=== PATIENT | female | born 1965 | race Caucasian/White ===

== ENCOUNTER 2020-10-06 22:26 | Emergency (ER) | payer OTHER, MEDICAID, SELFPAY ==
[2020-10-06] VITALS (14 sets, daily range): BP systolic 92–177; BP diastolic 69–124; PULSE 71–181; RESP 1–31; O2SAT 91–100
[2020-10-06] MEDS: Naloxone 0.4 MG/ML VIAL 2 MG IVP (22:26)
[2020-10-06] MEDS: EPINEPHrine 1 MG/10 ML SYR IVP (22:27)
--- NOTE | 2020-10-06 22:30 | RT.EKG_ITS ---
APPROVED REPORT Exam: Resting ECG Reason for Exam: RESP FAILURE Patient Location: E HR:164 bpm ECG Measurements Heart Rate 164 AXIS MD [id number] P [id number] QRSd 80 QRS 79 QT 302 T [id number] QTc 501 Conclusion Atrial fibrillation with rapid V-rate...A-rate 277 Repolarization abnormality, prob rate related...ST dep, T neg, tachycardia No STEMI I have reviewed and interpreted ECG and agree with software generated interpretation.
--- NOTE | 2020-10-06 22:49 | DI.CT_ITS ---
Exam(s) CT CHEST PE ABD PELVIS W EXAM: CT CHEST PE ABD PELVIS W CLINICAL HISTORY: respiratory arrest. TECHNIQUE: Imaging Protocol: Axial CT angiography was performed with multi-slice acquisition and mu lti-planar and/or 3D reconstructions. CONTRAST MATERIAL: Intravenous: Omnipaque 350 Contrast volume:100 mL COMPARISON: No exams were available for comparison FINDINGS: The examination is limited due to patient motion artifact. CHEST: Pulmonary Arteries: No evidence of filling defect to suggest pulmonary emboli. Tracheobronchial tree: Patent where visualized. Mediastinum and Kiara: No dominant adenopathy or fluid collection. Pulmonary parenchyma: There are bilateral lower lobe consolidations. Small infiltrates are also seen in the posterior aspects of both upper lobes, right greater than left. No architectural distortion. Pleura: There is a small left pleural effusion and a small to moderate size right pleural effusion. No pneumothorax. Heart: Mild cardiomegaly. Mild coronary artery calcification. Aorta: Thoracic aorta non-dilated. Atherosclerosis. Bones: Degenerative changes. Tubes, Catheters, and Lines: The tip of the endotracheal tube is in the right mainstem bronchus. The catheter should be retracted by at least 3 cm. The orogastric tube passes into the stomach. ABDOMEN: Liver: Normal density. No measurable mass. Portal, Superior Mesenteric, and Splenic Veins: Unremarkable. Gallbladder and Biliary Tract: Status post cholecystectomy. The mild biliary ductal dilatation likel y reflects a prior cholecystectomy. Pancreas: Normal density, no abnormal calcifications or inflammatory process. Spleen: Normal. Adrenals: There are small bilateral adrenal nodules. The largest is on the right and measures 1.4 x 0.9 cm. Kidneys: Normal size, contour and axis. No radiodense stones or obstructive uropathy. No masses seen. Abdominal Aorta: Abdominal portion non-dilated. Mild atherosclerosis. Bowel: No obstruction or bowel wall thickening. Appendix is unremarkable. The tip of the nasogastric tube is seen within the stomach. Peritoneal Cavity: No ascites, collection or mesenteric inflammatory response. Lymph Nodes: Within normal limits. Bones: Within normal limits for the patient's age. Soft Tissues: Unremarkable. PELVIS: Bladder: The urinary bladder is nondistended. There is a Sam catheter in place. Reproductive Organs: Unremarkable as visualized. Lymph Nodes: Within normal limits. Bones: Within normal limits. IMPRESSION: 1. The tip of the endotracheal tube is in the right mainstem bronchus and should be retracted by at l east 3 cm. 2. No evidence of a pulmonary embolus. 3. Bilateral pulmonary infiltrates and ground-glass opacities. Pneumonia should be considered. 4. Bilateral pleural effusions. 5. Mild cardiomegaly. 6. No acute abdominal or pelvic process. 7. Small bilateral adrenal nodules measuring up to 1.4 cm. They are indeterminate. Consider 12 diana h follow-up adrenal CT. Incidental Findings RADIATION DOSE DELIVERED: 1,450.84mGy.cm Total DLP 1,450.84mGy.cm Total DLP DATA REPOSITORY: All CT scans at this facility are submitted to the National Radiology Data Registry (NRDR) Dose Index Registry (DIR) with the [employer] (ACR). RADIATION OPTIMIZATION: All CT scans at this facility use at least one of these dose optimization te chniques: automated exposure control; mA and/or kV adjustment per patient size (includes targeted exa ms where dose is matched to clinical indication); or iterative reconstruction.
[2020-10-06] MEDS: Midazolam 5 MG/5 ML VIAL (22:57)
--- NOTE | 2020-10-06 22:57 | W.ED.GENAD ---
Discharge Plan Disposition Patient Disposition: [facility] Condition: Stable Discharge Details Clinical Impression: Respiratory arrest before cardiac arrest, Unresponsive Primary Care Provider: None,None ED Provider: Skyler Vieyra [place] Meds and New Rx's Prescriptions: No Action Unable to Obtain RF: 0 Medical Decision Making Patient arrives unresponsive with agonal respirations and no pulse. CPR started. Assisted ventilation with BVM. IV established. Initial resuscitation done without any history. 2 mg of Narcan given without results. 1 mg epinephrine given. Patient intubated by me on first attempt with use of CMAC. 7.5 ET tube placed without difficulty. Clear secretions noted in the tube. Breath sounds heard bilaterally. End-tidal CO2 present. ET tube secured. Second IV established. After intubation and 1 dose of epi pulse returned. Noted to be in A. fib with rates as high as 170. Good strong pulse and good blood pressure. Sam placed by nursing staff. OG placed by nursing staff. Once patient initially resuscitated I was able to speak to the sister. She reports that she really does not know a lot of information about her sister. She just moved up here to [place] a couple of months ago. Sister has never seen her take any medication. She did not get the [employer] vaccine 1 week ago. She has not been ill. She did not complain of pain. On return to the room patient remains unresponsive but she is overbreathing the vent. Versed is given for sedation. CTA of chest followed with CT abdomen pelvis ordered. EKG shows A. fib with no evidence of STEMI. Laboratory studies pending. No urine output by Sam at this point. Patient returned from CT and continues to be in rapid A. fib. Blood pressure continues to be elevated. She has more sedate and breathing less over the vent on the Versed. Will bolus with Cardizem and start Cardizem drip for rate control of her A. fib. CT and labs still pending at this point. 01:15 - Patient remains unresponsive on return from CT. She is on low-dose Versed drip. She has remained in sinus rhythm with stable blood pressure. We have placed ice in her axilla and groin to start cooling. Laboratory studies are not helpful showing an etiology of her respiratory arrest. White count is elevated but is likely due to to stress reaction. Troponin is negative. Electrolytes are normal. Liver function normal. She does have acidosis and renal insufficiency. BNP elevated but no baseline to compare to. CT scan shows no pulmonary embolus or dissection. She does have evidence of bibasilar consolidation consistent with aspiration as well as bilateral interstitial findings and pleural effusions that could be related to CHF. ET tube was at the right mainstem and has been pulled back. Abdomen pelvis shows adrenal nodules bilaterally but no acute pathology. Case discussed with [facility] ICU team. A head CT, blood cultures, Covid swab will be obtained prior to transfer. Patient remains unresponsive on a ventilator but hemodynamically stable. I have updated the sister and she is aware of the transfer to [facility]. Hopefully able to fly her down and we are awaiting callback from [facility]. HPI General Mode of arrival: wheelchair. Date/Time Provider Initiated Documentation: 10/06/20 22:45. Limitations to Documentation: other (unresponsive). Information obtained by: family. HPI Narrative: Patient presents to the ED by private vehicle unresponsive in respiratory arrest. History is from the sister after patient resuscitated and intubated. Per the sister patient was fine all day today with no complaints and has not been ill. She went to bed but woke up a few hours later complaining of extreme shortness of breath. She did not complain to her sister about headache, chest pain, back pain. She simply could not breathe. She went outside continued to have difficulty breathing and told the sister to bring her to the hospital. Sister reports that as soon as she got onto the highway patient became unresponsive in her car. Sister continue to drive to the hospital and ran in to the waiting room requesting help. Nurses went out to the car and found the patient unresponsive with agonal respirations, cold to touch, mercado. [employer] was called. Related Data Home Medications Medication Instructions Recorded Confirmed Unknown [Unable to Obtain] 10/06/20 10/06/20 Allergies Allergy/AdvReac Type Severity Reaction Status Date / Time Unable to Assess Allergy Verified 10/06/20 22:58 General Stated Complaint: [employer] FAINA: 1 Review of Systems Unobtainable due to endotracheal tube [facility] Medical History (Updated 10/07/20 @ 01:26 by Skyler Vieyra MD) Medical history unknown Surgical History (Updated 10/07/20 @ 01:26 by Skyler Vieyra MD) S/P cholecystectomy Social History (Updated 10/06/20 @ 22:59 by Skyler Vieyra MD) Smoking/Tobacco Use Status: Never Smoking risk assessment performed?: Yes Substance use type: does not use Additional Social history: intubated, unable to answer Exam Narrative Exam Narrative: Const: Obese unresponsive female HEENT: NC/AT. Normal facial exam. Eyes: Pupils dilated. Neck: Supple. Trachea midline. Lungs: Agonal respirations. Assisted ventilation with BVM. Cor: No pulse, CPR started. GI: Soft and ND. Neuro: Unreponsive. Ext: No edema. Skin: Cold and mercado. Procedures Intubation Time out performed: No sedative: none Laryngoscope: fiberoptic video scope ET Tube Size: 7.5 ET Tube Uncuffed: Yes Tube Secured Depth (cm): 25 Tube Secured Location: lips Tube Placement Confirmation: visualized tube passing through cords, equal breath sounds bilaterally and confirmation by capnometry Patient Tolerated Procedure: no complications Intubation Complications: none Critical Care Time Critical Care Time Critical Care Time: Yes Total Critical Care Time: 60 Attestation: Upon my evaluation, this patient had a high probability of imminent or life-threatening deterioration, which required my direct attention, intervention, and personal management. I have personally provided 60 minutes of critical care time exclusive of time spent on separately billable procedures. Time includes review of laboratory data, radiology results, discussion with consultants, and monitoring for potential decompensation. Interventions were performed as documented above.
[2020-10-06] MEDS: Midazolam 2 MG/2 ML VIAL 4 MG IVP (22:59)
[2020-10-06] MEDS: MIDAZOLAM 50 MG in Normal Saline 90 ML IV (23:12)
[2020-10-06 23:14] LABS: HCT 39.3 % (36.0-46.0); MCH 29.5 pg (27.0-33.0); MCHC 33.1 % (32.0-36.0); MCV 89.1 fL (80-95); MPV 12.5 fL (8.0-11.0); Nucleated RBC 0 %; Platelet Count 200 10^3/uL (130-400); RBC 4.41 10^6/uL (3.93-5.22); RDW 14.1 % (11.7-14.6); RDW-SD 45.1 fL; WBC 14.04 10^3/uL (4.4-10.8)
--- NOTE | 2020-10-06 23:30 | RT.EKG_ITS ---
APPROVED REPORT Exam: Resting ECG Reason for Exam: SHANIA CHANGE Patient Location: E HR:80 bpm ECG Measurements Heart Rate 80 AXIS WV 191 P 48 QRSd 83 QRS 69 QT 498 T 195 QTc 576 Conclusion Sinus rhythm...normal P axis, V-rate 60- 99 Probable left atrial enlargement...P >50mS, <-0.10mV V1 Prolonged QT interval...QTc >510mS No STEMI ST-T changes, Nonspecific
[2020-10-06 23:31] LABS: Absolute Neutrophil Count 5.34 10^3/uL (1.2-6.7)
[2020-10-06 23:32] LABS: Absolute Eosinophil Count 0.28 10^3/uL (0.0-0.7); Absolute Lymphocyte Count 7.58 10^3/uL (1.2-3.4); Absolute Monocyte Count 0.84 10^3/uL (0.1-0.8); Atypical Lymphocytes % 4; Diff Comment Manual Differential; RBC Morphology Normal
[2020-10-06 23:34] LABS: ALT 37 U/L (14-59); AST 34 U/L (15-37); Albumin 3.4 g/dL (3.4-5.0); Alkaline Phosphatase 95 U/L (46-116); Anion Gap 16.3 mmol/L (3-11); BUN 21 mg/dL (7-18); Bilirubin, Total 0.7 mg/dL (0.2-1.0); CO2 17.7 mmol/L (21.0-32.0); CREATININE 1.6 mg/dL (0.55-1.02); Calcium 9.1 mg/dL (8.5-10.1); Chloride 107 mmol/L (98-107); Estimated GFR 33.22 (mL/min/1.73m2); Glucose 164 mg/dL (74-106); Magnesium 2.3 mg/dL (1.8-2.4); NT-proBNP 2670 pg/mL (<300); Potassium 4.1 mmol/L (3.5-5.1); Sodium 141 mmol/L (136-145); Total Protein 7.3 g/dL (6.4-8.2)
[2020-10-06 23:35] LABS: PTT Activated 21.2 sec (21.0-27.5); Prothrombin Time 10.4 sec (9.3-11.0); Troponin I < 0.05 ng/mL (<0.06)
[2020-10-06 23:49] LABS: BE -10 mmol/L (-2-3); HCO3 17 mmol/L (22-26); pCO2 38 mmHg (35-45); pH 7.25 (7.35-7.45); pO2 91 mmHg (80-105); sO2 96 % (95-98); tCO2 16 mmol/L (23-27)
[2020-10-06 23:51] LABS: Site Left Radial
[2020-10-06 23:52] LABS: FIO2 100 %
[2020-10-06 23:55] LABS: TSH (W/Ref FT4) 9.53 uIU/mL (0.36-3.74)
[2020-10-07] VITALS (24 sets, daily range): BP systolic 107–129; BP diastolic 66–86; PULSE 68–81; RESP 15–25; TEMP 36.1; O2SAT 83–94
[2020-10-07 00:12] LABS: FREE T4 1.17 ng/dL (0.76-1.46)
--- NOTE | 2020-10-07 00:24 | DI.VRAD_ITS ---
PROCEDURE INFORMATION: Exam: CTA Chest With Contrast Exam date and time: 10/06/2020 11:12 PM Age: 55 years old Clinical indication: Other: Respiratory arrest; Additional info: Unresponsive TECHNIQUE: Imaging protocol: Computed tomographic angiography of the chest with contrast. 3D rendering (Not supervised by radiologist): MIP and/or 3D reconstructed images were created by the technologist. COMPARISON: No relevant prior studies available. FINDINGS: Tubes, catheters and devices: There is an endotracheal tube in place with its distal tip within the right mainstem bronchus. There is a nasogastric tube in place which extends at least to the lower gastric body. Pulmonary arteries: There is no evidence for central pulmonary embolism. Aorta: Unremarkable. No aortic aneurysm. No aortic dissection. Lungs: There are dependent bibasilar airspace opacities, some of which represent atelectasis, but there are patchy bibasilar airspace opacities suggesting superimposed bronchopneumonia or aspiration. There are similar findings within the posterior aspect of the right upper lobe and within the lingula. There are patchy ground-glass opacities within the lungs as well. Pleural spaces: There are small free layering bilateral pleural effusions, right greater than left, with the right pleural effusion having a thickness 2.1 cm posterior to the right lower lobe. Heart: There is mild cardiomegaly. There is no pericardial effusion. Lymph nodes: Unremarkable. No enlarged lymph nodes. Bones/joints: The thoracic spine demonstrates mild degenerative changes at multiple levels. There is mild anterior wedging of a few lower thoracic vertebra which appears chronic. No acute fractures are identified. Soft tissues: Unremarkable. IMPRESSION: 1. The tip of the endotracheal tube resides within the right mainstem bronchus. Recommend retracting by at least 3 cm. 2. Patchy bibasilar airspace opacities, as described above, some of which represent atelectasis but there appears to be superimposed aspiration or bronchopneumonia as well. 3. Patchy ground-glass opacities throughout the lungs, could reflect pneumonitis versus interstitial pulmonary edema. 4. Small freely layering bilateral pleural effusions. 5. Mild cardiomegaly. COMMENTS: THIS REPORT CONTAINS FINDINGS THAT MAY BE CRITICAL TO PATIENT CARE. The exam findings were verbally communicated by me to VICKIE LUNDBERG via telephone conference at 12:07 AM EDT on 10/07/2020. The findings were acknowledged and understood. PROCEDURE INFORMATION: Exam: CT Abdomen And Pelvis With Contrast Exam date and time: 10/06/2020 11:12 PM Age: 55 years old Clinical indication: Other: Respiratory arrest; Additional info: Unresponsive TECHNIQUE: Imaging protocol: Computed tomography of the abdomen and pelvis with contrast. COMPARISON: No relevant prior studies available. FINDINGS: Tubes, catheters and devices: There is a nasogastric tube in place with its tip within the gastric antrum. Liver: Normal. No mass. Gallbladder and bile ducts: There has been a cholecystectomy. There is mild intra and extrahepatic biliary ductal dilatation to the level of the ampulla, likely related to the prior cholecystectomy. Pancreas: The pancreas is moderately atrophic but appears otherwise unremarkable without focal lesion or evidence of acute inflammation. Spleen: Normal. No splenomegaly. Adrenal glands: There are small bilateral adrenal nodules, the larger residing on the right measuring 1.4 x 0.9 cm, which are indeterminate. Kidneys and ureters: Normal. No hydronephrosis. Stomach and bowel: Unremarkable. No obstruction. No mucosal thickening. Appendix: No evidence of appendicitis. Intraperitoneal space: Unremarkable. No free air. No significant fluid collection. Vasculature: The aorta and iliac arteries demonstrate moderate atherosclerotic calcification without aneurysm formation. Lymph nodes: Unremarkable. No enlarged lymph nodes. Urinary bladder: There is a Sam catheter within the bladder which is collapsed. Reproductive: Unremarkable as visualized. Bones/joints: Unremarkable. No acute fracture. Soft tissues: Unremarkable. IMPRESSION: 1. No acute process within the abdomen or pelvis identified. 2. Small bilateral adrenal nodules measuring up to 1.4 x 0.9 cm, indeterminate. Consider 12 month follow-up adrenal CT. (Reference: Naomy) REFERENCES: Naomy SILVA et al. Management of Incidental Adrenal Masses: A White Paper of the ACR Incidental Findings Committee. J Am Roberto Radiol. 2017;14(8):6968-4274. Dictated and Authenticated by: Rad Masterson MD. Ordering:THIERRY Holland MD
[2020-10-07 00:57] LABS: Bilirubin Negative (Negative); Blood Moderate (Negative); Clarity Sl Cloudy (Clear); Glucose 100 mg/dL (Negative); Ketones Negative (Negative); Leukocyte Esterase Negative (Negative); Nitrite Negative (Negative); Urobilinogen 0.2 EU/dL (Up TO 0.2)
--- NOTE | 2020-10-07 01:00 | DI.CT_ITS ---
Exam(s) CT HEAD WO EXAM: CT HEAD WO CLINICAL HISTORY: unresponsive. TECHNIQUE: Imaging Protocol: Axial computed tomography images with coronal and sagittal reformatted images were created and reviewed COMPARISON: No exams were available for comparison FINDINGS: Ventricles and Extra axial spaces: Normal in size and morphology for the patient's age. Hemorrhage: None. Cerebral parenchyma: Normal. No acute territorial infarct. Normal mercado-white matter differentiation. Midline shift: None. Brainstem/Cerebellum: Normal. Calvarium: Normal. Visualized Paranasal sinuses/Mastoids: Clear. Soft Tissues: Unremarkable. Other: Note is made of orogastric and endotracheal tubes. Intracranial artery and veins are hyperatt enuating secondary to IV contrast administration from the CT scan prior to this examination. IMPRESSION: No acute intracranial process. RADIATION DOSE DELIVERED: 795.63mGy.cm Total DLP DATA REPOSITORY: All CT scans at this facility are submitted to the National Radiology Data Registry (NRDR) Dose Index Registry (DIR) with the [employer] (ACR). RADIATION OPTIMIZATION: All CT scans at this facility use at least one of these dose optimization te chniques: automated exposure control; mA and/or kV adjustment per patient size (includes targeted exa ms where dose is matched to clinical indication); or iterative reconstruction.
--- NOTE | 2020-10-07 01:03 | NUR.NOTE ---
Nursing Note: Per sister, patient has been here since June after moving here from [place]. Sister has never seen her take any medications and is not aware of any allergies. They are in the process of getting her a PCP when they get her ins switched to [place]. Sister reports that pt awoke at about 10 pm suddenly stating I cant breathe. I need to get to the hospital now reports emesis x 1 at home. pt walked to car with sister. Sister noted as she was driving and [place] that pt became unresponsive and floppy in the passenger seat. Sister unaware of any other pt history.
[2020-10-07 01:09] LABS: Bacteria Moderate HPF (Negative); C & S Indicated? No/Sq. Contamination; Casts 3-5 Fine Granular LPF (Negative); Crystals Negative HPF (Negative); Epithelial Cells Moderate HPF (Negative); Mucus Negative (Negative); Other Cells Few Transitional (Negative); RBC >50 HPF (0-2)
--- NOTE | 2020-10-07 02:01 | DI.VRAD_ITS ---
PROCEDURE INFORMATION: Exam: CT Head Without Contrast Exam date and time: 10/07/2020 1:10 AM Age: 55 years old Clinical indication: Patient HX: PT unresponsive TECHNIQUE: Imaging protocol: Computed tomography of the head without contrast. COMPARISON: No relevant prior studies available. FINDINGS: Brain: Normal volume for age. No hemorrhage. No significant white matter disease. No edema. No midline shift or herniation. Cerebral ventricles: No ventriculomegaly. Paranasal sinuses: Visualized sinuses are unremarkable. No fluid levels. Mastoid air cells: No mastoid effusion. Vasculature: Major intracranial arteries and veins appear hyperattenuating secondary to contrast administered for another CT prior to this exam. Bones/joints: Unremarkable. No acute osseous finding. Soft tissues: No focal soft tissue abnormality. IMPRESSION: No acute intracranial finding. Dictated and Authenticated by: Edson Yang MD. Ordering:THIERRY Holland MD
[2020-10-07 02:15] LABS: Troponin I < 0.05 ng/mL (<0.06)
[2020-10-07 02:44] LABS: COVID-19 PCR Negative (Negative)
[2020-10-07] MEDS: PROPOFOL 1,000 MG/100 ML BTL 5 MG (03:02)
--- NOTE | 2020-10-07 07:20 | NUR.NOTE ---
Nursing Note: COVID result faxed to [address] Larisa Maria P [phone] F [phone]
== END 2020-10-07 02:40 | disposition short-term general hospital (02) ==
PROVIDERS: Emergency Provider Emergency Medicine
DX: R06.89 Other abnormalities of breathing (principal); R40.2442 Other coma, without documented Glasgow coma scale score, or with partial score reported, at arrival to emergency department; J90 Pleural effusion, not elsewhere classified; E87.2 Acidosis; N28.9 Disorder of kidney and ureter, unspecified; Z03.818 Encounter for observation for suspected exposure to other biological agents ruled out
CPT/HCPCS: 31500; 36415; 51702; 71275; 74177; 80053; 82805; 87040; 87635; 92950; 93005; 96365; 96366; 96375; 99291; 36600; 70450; 81003; 81015; 83735; 83880; 84439; 84443; 84484; 85025; 85610; 85730; 93010; J2250; J2310; J3490

== ENCOUNTER 2020-11-26 01:42 | Outpatient (CLI) | payer MEDICAID, SELFPAY ==
--- NOTE | 2020-11-26 | DI.CT_ITS ---
Exam(s) CT HEAD WO EXAM: CT HEAD WO CLINICAL HISTORY: H/O CVA,? LEEL OF HEMORRHAGIC CONVERSION,I63.9,. TECHNIQUE: Imaging Protocol: Axial computed tomography images with coronal and sagittal reformatted images were created and reviewed COMPARISON: No exams were available for comparison FINDINGS: There are no skull fractures nor fluid in the visualized paranasal sinuses. A large area of abnormal hypodensity territory left middle cerebral artery involving the left tempora l and parietal regions also involves the left lateral basal ganglia and external capsule. No evidenc e of intracranial hemorrhage, intra or extra-axial. There is also an area of abnormal hypodensity in the right occipital lobe, this measuring approximate ly 4.6 centimetres AP by 1.4 cm wide by 1.3 cm craniocaudal. Also nonhemorrhagic. IMPRESSION: Large nonhemorrhagic left middle cerebral artery territory infarct involving the left temporal and pa rietal lobes. Also evidence of prior infarct in the right occipital lobe. No evidence of intracranial hemorrhage, intra or extra-axial RADIATION DOSE DELIVERED: 682.88mGy.cm Total DLP DATA REPOSITORY: All CT scans at this facility are submitted to the National Radiology Data Registry (NRDR) Dose Index Registry (DIR) with the [employer] (ACR). RADIATION OPTIMIZATION: All CT scans at this facility use at least one of these dose optimization te chniques: automated exposure control; mA and/or kV adjustment per patient size (includes targeted exa ms where dose is matched to clinical indication); or iterative reconstruction.
== END 2020-11-26 02:02 ==
PROVIDERS: PCP Family Medicine; Visit Provider Family Medicine
DX: I63.512 Cerebral infarction due to unspecified occlusion or stenosis of left middle cerebral artery (principal)
CPT/HCPCS: 70450

== ENCOUNTER 2020-12-12 17:40 | Outpatient (REF) | payer MEDICAID, SELFPAY ==
[2020-12-12 19:57] LABS: Uric Acid 8.1 mg/dL (2.6-6.0)
== END 2020-12-12 17:41 | disposition home or self-care (01) ==
LOC: LBN 17:40
PROVIDERS: Visit Provider Nurse Practitioner Family
DX: M10.9 Gout, unspecified (principal)
CPT/HCPCS: 84550

== ENCOUNTER 2021-01-08 17:46 | Outpatient (REF) | payer MEDICAID, SELFPAY ==
[2021-01-08 15:27] LABS: HCT 38.7 % (36.0-46.0); HGB 12.7 g/dL (11.2-15.7); MCH 29.1 pg (27.0-33.0); MCHC 32.8 % (32.0-36.0); MCV 88.6 fL (80-95); MPV 12.1 fL (8.0-11.0); Platelet Count 253 10^3/uL (130-400); RBC 4.37 10^6/uL (3.93-5.22); RDW 14.2 % (11.7-14.6); RDW-SD 45.9 fL; WBC 4.64 10^3/uL (4.4-10.8)
[2021-01-08 15:53] LABS: ALT 40 U/L (14-59); AST 27 U/L (15-37); Albumin 4.2 g/dL (3.4-5.0); Alkaline Phosphatase 107 U/L (46-116); Anion Gap 3.7 mmol/L (3-11); BUN 23 mg/dL (7-18); Bilirubin, Total 0.4 mg/dL (0.2-1.0); CO2 28.3 mmol/L (21.0-32.0); Calcium 9.5 mg/dL (8.5-10.1); Chloride 103 mmol/L (98-107); Estimated GFR 57.15 (mL/min/1.73m2); Glucose 95 mg/dL (74-106); Potassium 4.2 mmol/L (3.5-5.1); Sodium 135 mmol/L (136-145); TSH (W/Ref FT4) 3.73 uIU/mL (0.36-3.74); Total Protein 7.8 g/dL (6.4-8.2)
== END 2021-01-08 17:47 | disposition home or self-care (01) ==
LOC: LBN 17:46
PROVIDERS: Visit Provider Nurse Practitioner Family
DX: I27.0 Primary pulmonary hypertension (principal); E87.1 Hypo-osmolality and hyponatremia
CPT/HCPCS: 80053; 85027; 84443; 85025

== ENCOUNTER 2021-01-11 21:54 | Outpatient (REF) | payer MEDICAID, SELFPAY ==
[2021-01-11 23:02] LABS: Bilirubin Negative (Negative); Blood Negative (Negative); Clarity Clear (Clear); Glucose Negative (Negative); Ketones Negative (Negative); Leukocyte Esterase Negative (Negative); Nitrite Negative (Negative); Specific Gravity <= 1.005 (1.005-1.025); Urobilinogen 0.2 EU/dL (Up TO 0.2); pH 5.5 (5-8)
== END 2021-01-11 21:55 | disposition home or self-care (01) ==
LOC: LBN 21:54
PROVIDERS: Visit Provider Family Medicine
DX: N39.0 Urinary tract infection, site not specified (principal)
CPT/HCPCS: 81003; 87086

== ENCOUNTER 2021-01-18 09:05 | Outpatient (REF) | payer MEDICAID, SELFPAY ==
[2021-01-18 09:24] LABS: HGB 12.7 g/dL (11.2-15.7); MCH 29.3 pg (27.0-33.0); MCHC 33.4 % (32.0-36.0); MCV 87.6 fL (80-95); MPV 11.8 fL (8.0-11.0); Platelet Count 234 10^3/uL (130-400); RBC 4.34 10^6/uL (3.93-5.22); RDW 13.7 % (11.7-14.6); RDW-SD 43.4 fL
[2021-01-18 09:29] LABS: BUN 20 mg/dL (7-18); CREATININE 1.1 mg/dL (0.55-1.02); Calcium 9.8 mg/dL (8.5-10.1); Chloride 105 mmol/L (98-107); Glucose 88 mg/dL (74-106); Potassium 4.3 mmol/L (3.5-5.1); Sodium 141 mmol/L (136-145)
== END 2021-01-18 09:06 | disposition home or self-care (01) ==
LOC: LBN 09:05
PROVIDERS: Visit Provider Family Medicine
DX: E87.1 Hypo-osmolality and hyponatremia (principal)
CPT/HCPCS: 80048; 85027

== ENCOUNTER 2021-01-18 10:40 | Outpatient (CLI) | payer MEDICAID, SELFPAY ==
--- NOTE | 2021-01-18 | DI.CT_ITS ---
Exam(s) CT HEAD WO EXAM: CT HEAD WO CLINICAL HISTORY: ALTERED MENTAL STATUS R41.82. TECHNIQUE: Imaging Protocol: Axial computed tomography images with coronal and sagittal reformatted images were created and reviewed COMPARISON: CT CT HEAD WO from 11/26/2020 FINDINGS: Ventricles and Extra axial spaces: Mild ex vacuo dilatation of the left lateral ventricle, unchanged. Hemorrhage: None. Cerebral parenchyma: Stable size of previously noted large left MCA territory infarct stable old righ t inferior occipital infarct. No new infarct. Midline shift: None. Brainstem/Cerebellum: Normal. Calvarium: Normal. Visualized Paranasal sinuses/Mastoids: Clear. Soft Tissues: Unremarkable. 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 No acute intracranial process. RADIATION DOSE DELIVERED: 688.04mGy.cm Total DLP DATA REPOSITORY: All CT scans at this facility are submitted to the National Radiology Data Registry (NRDR) Dose Index Registry (DIR) with the [employer] (ACR). RADIATION OPTIMIZATION: All CT scans at this facility use at least one of these dose optimization te chniques: automated exposure control; mA and/or kV adjustment per patient size (includes targeted exa ms where dose is matched to clinical indication); or iterative reconstruction.
== END 2021-01-18 11:00 ==
PROVIDERS: Visit Provider Nurse Practitioner Family
DX: R41.82 Altered mental status, unspecified (principal); Z86.73 Personal history of transient ischemic attack (TIA), and cerebral infarction without residual deficits
CPT/HCPCS: 70450

== ENCOUNTER 2021-04-02 08:52 | Outpatient (CLI) | payer MEDICAID, SELFPAY ==
--- NOTE | 2021-04-02 08:45 | RT.EKG_ITS ---
APPROVED REPORT Exam: Resting ECG Reason for Exam: PAF Patient Location: O HR:60 bpm ECG Measurements Heart Rate 60 AXIS IL [id number] P [id number] QRSd 111 QRS 67 QT 455 T 76 QTc 455 Conclusion Normal sinus rhythm Normal Electrocardiogram
== END 2021-04-02 08:53 | disposition home or self-care (01) ==
LOC: DI.CARD 08:52
PROVIDERS: Visit Provider Internal Medicine Cardiovascular Disease
DX: I48.0 Paroxysmal atrial fibrillation (principal)
CPT/HCPCS: 93010

== ENCOUNTER 2021-04-17 12:23 | Emergency (ER) | payer MEDICAID, SELFPAY ==
[2021-04-17] VITALS (15 sets, daily range): BP systolic 142; BP diastolic 70; PULSE 62–70; RESP 11–23; TEMP 36.8; O2SAT 94–98
--- NOTE | 2021-04-17 12:15 | RT.EKG_ITS ---
APPROVED REPORT Exam: Resting ECG Reason for Exam: stroke Patient Location: E HR:63 bpm ECG Measurements Heart Rate 63 AXIS NJ 206 P 4 QRSd 93 QRS 56 QT 458 T 66 QTc 469 Conclusion Sinus rhythm...normal P axis, V-rate 60- 99 Borderline prolonged NJ interval...NJ >202, V-rate 50- 90
--- NOTE | 2021-04-17 12:45 | ED.GENADUL_ITS ---
Discharge Plan Disposition Patient Disposition: HOME Condition: Serious Discharge Details Clinical Impression: AMS (altered mental status), Paroxysmal A-fib Primary Care Provider: [facility] ED Provider: Yesica Bee Lostant Meds and New Rx's Prescriptions: New Eliquis 5 mg tablet 5 mg PO BID Qty: 60 RF: 0 levetiracetam [Keppra] 1,000 mg tablet 1,000 mg PO BID Qty: 60 RF: 0 Continued atorvastatin 80 mg tablet 80 mg PO DAILY RF: 0 diltiazem HCl 60 mg tablet 60 mg PO Q6H RF: 0 gabapentin 300 mg capsule 300 mg PO BID RF: 0 levetiracetam 500 mg tablet 500 mg PO BID RF: 0 lisinopril 20 mg tablet 20 mg PO DAILY RF: 0 metoprolol tartrate 25 mg tablet 12.5 mg PO Q6H RF: 0 sertraline 50 mg tablet 75 mg PO DAILY RF: 0 sertraline 25 mg tablet 25 mg PO DAILY RF: 0 magnesium oxide 400 mg magnesium capsule 400 mg PO BID RF: 0 multivitamin Tablet 1 tab PO DAILY RF: 0 sennosides [senna] 8.6 mg Tablet 8.6 mg PO BID RF: 0 acetaminophen 325 mg Tablet 650 mg PO Q4H PRNRF: 0 polyethylene glycol 3350 [Miralax] 17 gram Powder In Packet 17 g PO DAILY RF: 0 allopurinol 100 mg Tablet 100 mg PO DAILY RF: 0 fluticasone propionate 50 mcg/actuation [place],Suspension 1 spray INTRANASAL DAILY RF: 0 loratadine 10 mg Tablet 10 mg PO DAILY RF: 0 Discontinued meloxicam 7.5 mg tablet 7.5 mg PO BID RF: 0 Discharge Instructions Instructions: A-fib (Atrial Fibrillation) (ED), Altered Mental Status (ED) Additional Instructions: Please follow-up with your primary care physician and let them know we have reinitiated your Eliquis Your neurologist is concerned that you may have had a seizure, we are increasing your dose of Keppra to 1000 mg twice daily Take your Eliquis 5 mg twice daily Please return should you have new or worsening complaints including recurrent dizziness, weakness, alteration in mental status The neurologist at [facility] does not believe that you had a stroke, he is concerned for seizure You will need close outpatient follow-up with neurology for reassessment, I am listing our neurologist for reevaluation Referrals: Yas Boateng MD [ [facility] STAFF PHYSICIAN] - Discharge Data Discharge Date/Time-TO BE ENTERED AT DEPARTURE: 04/17/21 17:44 Medical Decision Making Patient have diagnostic labs do not show significant acute abnormality, CTA head and neck did not show acute stroke MRI does show left parietal foci of suspected which are suspected to be acute per Dr. King, radiology Patient has almost completely cleared in terms of mentation, speech, and physical exam findings She is a DNR/DNI status This decision was made with the medical reception, patient sister DPOA in room, and patient and she is of decisional capacity at time of assessment Patient is requesting to return to the rehabilitation, however we are pending consultation from [facility], they were contacted at approximately 1310 and MRI findings and CTA findings were transmitted to them There is no evidence of hemorrhage Per resolution manager documentation, it is recommended that patient be reinitiated on either Eliquis or Xarelto for her paroxysmal atrial fibrillation, we will in quire as to whether or not this is reasonable given her prior hemorrhagic stroke with [facility] Patient has had extensive work-up for the stroke in the past, and I do not think it is unreasonable for patient to return to rehabilitation if this is her wish We will also have input from neurology Patient is almost completely cleared from a neurological standpoint at time of r eassessment, sister in room and confirmed exam findings I have not given anticoagulation at this time Would like treadmill administer Eliquis or Xarelto in ER, will pend neurology feedback EKG does not show evidence of atrial fibrillation, telemetry monitoring without evidence of atrial fibrillation Case discussed with Dr. Escamilla, on-call neurologist for [facility] who actually personally cared for this patient during her last admission for stroke She feels that this is probably postictal. Secondary to seizure, he did review her MRI and does not see any evidence of acute stroke despite her radiology interpretation Personally reviewed the images and we discussed the findings Patient on reassessment at completely at baseline She wishes to return back to rehab at this time We talked about admission for observation versus discharge back to rehab & patient's DPOA sister and patient prefer to be discharged home Dr. Escamilla would like me to initiate Eliquis at 5 mg twice daily which the first dose was received in the emergency room and increase her Keppra. 1 g twice daily, she was given 1000 mg in the emergency room prior to departure She is discharged back to rehabilitation at baseline mentation Given low threshold to return with new or worsening complaints or recurrent episodes of seizure-like activity or AMS HPI General Mode of arrival: EMS . Date/Time Provider Initiated Documentation: 04/17/21 12:33 . Limitations to Documentation: altered mental status . Information obtained by: family, RN/MD and EMS . HPI Narrative: This complex 55-year-old female with history of pulmonary hypertension, CVA with hemorrhagic conversion, paroxysmal atrial fibrillation, CHF, respiratory arrest presents with report of alteration in mental status at approximately 12:00 today. She reportedly was confused, did not recognize her sister, and had some new left- sided weakness with right tremor. Her speech was garbled and more slurred her sister. Staff denies any falls or injuries. Denies any new medications. Unable to give additional history Related Data Home Medications Medication Instructions Recorded Confirmed atorvastatin 80 mg tablet 80 mg PO DAILY 01/24/21 04/17/21 diltiazem HCl 60 mg tablet 60 mg PO Q6H 01/24/21 04/17/21 gabapentin 300 mg capsule 300 mg PO BID 01/24/21 04/17/21 levetiracetam 500 mg tablet 500 mg PO BID 01/24/21 04/17/21 lisinopril 20 mg tablet 20 mg PO DAILY 01/24/21 04/17/21 metoprolol tartrate 25 mg tablet 12.5 mg PO Q6H tab 01/24/21 04/17/21 magnesium oxide 400 mg PO BID 04/02/21 04/17/21 sertraline 25 mg tablet 25 mg PO DAILY 04/02/21 04/17/21 sertraline 50 mg tablet 75 mg PO DAILY tab 04/02/21 04/17/21 acetaminophen 650 mg PO Q4H PRN 04/17/21 04/17/21 allopurinol 100 mg PO DAILY 04/17/21 04/17/21 apixaban [Eliquis] 5 mg PO BID #60 tab 04/17/21 fluticasone propionate 1 spray INTRANASAL DAILY 04/17/21 04/17/21 levetiracetam [Keppra] 1,000 mg PO BID #60 tab 04/17/21 loratadine 10 mg PO DAILY 04/17/21 04/17/21 multivitamin 1 tab PO DAILY 04/17/21 04/17/21 polyethylene glycol 3350 [Miralax] 17 g PO DAILY 04/17/21 04/17/21 sennosides [senna] 8.6 mg PO BID 04/17/21 04/17/21 Previous Rx's Medication Instructions Recorded apixaban [Eliquis] 5 mg PO BID #60 tab 04/17/21 levetiracetam [Keppra] 1,000 mg PO BID #60 tab 04/17/21 Allergies Allergy/AdvReac Type Severity Reaction Status Date / Time codeine Allergy Unknown Verified 04/02/21 13:50 Penicillins Allergy Unknown Verified 04/02/21 13:50 strawberry Allergy Unknown Verified 04/02/21 13:50 General Stated Complaint: CVA/TIA FAINA: 2 Review of Systems Unobtainable due to mental status [facility] Active Problem List Pulmonary HTN (Acute) PAF (paroxysmal atrial fibrillation) (Acute) CVA (cerebral vascular accident) (Chronic) Heart failure (Acute) Respiratory arrest before cardiac arrest (Acute) Medical History Medical history unknown Unresponsive Surgical History S/P cholecystectomy Social History Smoking/Tobacco Use Status: Never Smoking risk assessment performed?: Yes Alcohol Intake: never Substance use type: does not use Exam Const General: cooperative and no acute distress Orientation: alert Limitations: altered mental status HENMT Other: Mild right-sided facial droop Eyes Pupils: PERRL EOM: EOM intact bilaterally Neck Other: No carotid bruits, no meningismus Resp Effort & Inspection: normal respiratory effort Auscultation: clear to auscultation bilaterally Cardio Rate: regular rate Rhythm: regular rhythm Other: No murmur Skin General skin exam: no rashes or lesions noted Neuro General: patient alert and not oriented Cranial Nerves: facial strength abnormal, tongue midline and gag reflex normal Cognition: abnormal cognition Speech: abnormal speech and expressive aphasia Other: Strength 1 out of 5 to right upper extremity and right lower extremity, strength 3 out of 5 to left upper extremity and left lower extremity, sensation intact distally Extrem Other: Distal pulses intact Course Vital Signs Vital signs: Vital Signs Temperature 36.8 C 04/17/21 12:23 Pulse 70 04/17/21 12:23 Respiratory Rate 12 04/17/21 12:23 Pulse Oximetry 97 04/17/21 12:23 Temperature 36.8 C 04/17/21 12:23 Temperature Source Temporal Artery Scan 04/17/21 12:23 Pulse 70 04/17/21 12:23 Respiratory Rate 18 04/17/21 12:28 Respiratory Effort Non-Labored 04/17/21 12:28 Respiratory Depth Normal 04/17/21 12:28 Respiratory Pattern Normal 04/17/21 12:28 Pulse Oximetry 97 04/17/21 12:23 Oxygen Delivery Method Room Air 04/17/21 12:23 Oxygen Flow Rate 0 04/17/21 12:23 Critical Care Time Critical Care Time Critical Care Time: Yes Total Critical Care Time: 60 Attestation: IV fluid resuscitation, Eliquis, antiepileptic,, telemetry monitoring, CTA, MRI, diagnostic lab evaluation, neurology consultatio
--- NOTE | 2021-04-17 12:45 | DI.RAD_ITS ---
Exam(s) XR PORTABLE CHEST AP EXAM: XR PORTABLE CHEST AP CLINICAL HISTORY: ams TECHNIQUE: 2D digital imaging was performed of the chest. One image was obtained. An AP view was ob tained. COMPARISON: No exams were available for comparison FINDINGS: MEDIASTINUM: Normal. HEART: Normal. PULMONARY VASCULATURE: Normal. LUNGS: Clear. PLEURAL SPACE: No pleural effusion or pneumothorax. BONE:Within normal limits for the patient's age. OTHER FINDINGS:Normal. IMPRESSION: No acute pulmonary findings. DATA REPOSITORY: RADIATION DOSE DELIVERED:
[2021-04-17] MEDS: Omnipaque 350 MG/ML 100 ML BTL IJ (12:58)
--- NOTE | 2021-04-17 13:00 | DI.CT_ITS ---
Exam(s) CT BRAIN NECK CTA EXAM: CT BRAIN NECK CTA CLINICAL HISTORY: vision loss, slurred speech, right facial droop. TECHNIQUE: Imaging Protocol: Axial CT angiography was performed with multi-slice acquisition and mu lti-planar and/or 3D reconstructions. CONTRAST MATERIAL: Intravenous: Omnipaque 350 Contrast volume:85 mL COMPARISON: CT CT CHEST PE ABD PELVIS W from 10/06/[address] HEAD WO from 10/07/[address] HEAD WO from 01/18/[address] HEAD WO from 01/18/2021 FINDINGS: CT Head W/O and W: Ventricles and Extra axial spaces: Normal in size and morphology for the patient's age. Hemorrhage: None. Cerebral parenchyma: There is again seen a old large left MCA distribution infarct present. There is also again seen a stable area of encephalomalacia involving the right occipital lobe. No acute terr itorial infarct. Midline shift: None. Brainstem/Cerebellum: Normal. Calvarium: Normal. Visualized Paranasal sinuses/Mastoids: Clear. Soft Tissues: Unremarkable. Enhancement: Unremarkable. CTA Neck W: Common Carotid: Right: No dissection, occlusion or significant stenosis. Mild atherosclerosis distally. Left: No dissection, occlusion or significant stenosis. Mild atherosclerosis distally. External Carotid: Right: No occlusion or significant stenosis. Left: No occlusion or significant stenosis. Internal Carotid: Right: No dissection, occlusion or significant stenosis. Mild atherosclerosis at its origin. Left: No dissection, occlusion or significant stenosis. Mild atherosclerosis proximally. There is m ild narrowing of the proximal internal carotid artery. Vertebral Artery: Right: No dissection, occlusion or significant stenosis. Left: No dissection, occlusion or significant stenosis. There is a dominant left vertebral artery. Lung Apices: Normal. Bones: Within normal limits for the patient's age. Soft Tissues: There is a 0.7 cm hypodense left thyroid nodule. Nonemergent thyroid ultrasound may be obtained for further evaluation. Thyroid gland: Unremarkable. CTA Brain W: Internal Carotid Arteries: Atherosclerosis. No significant stenosis or occlusion. Anterior Cerebral Arteries: Right: No aneurysm, occlusion or significant stenosis. Left: No aneurysm, occlusion or significant stenosis. Middle Cerebral Arteries: Right: No aneurysm, occlusion or significant stenosis. Left: No aneurysm, occlusion or significant stenosis. Posterior Cerebral Arteries: Right: No aneurysm, occlusion or significant stenosis. Left: No aneurysm, occlusion or significant stenosis. Vertebral Arteries: Right: No aneurysm, occlusion or significant stenosis. Left: No aneurysm, occlusion or significant stenosis. Basilar Artery: No aneurysm, occlusion or significant stenosis. IMPRESSION: 1. No large vessel occlusion or significant stenosis on the CT angiography of the head. 2. No acute intracranial process. 3. Old large left MCA distribution infarct. Old right occipital infarct. 4. No occlusion or significant stenosis on the CT angiography of the neck. 5. Results of this exam have been verbally communicated with provider. RADIATION DOSE DELIVERED: 2,029.4mGy.cm Total DLP DATA REPOSITORY: All CT scans at this facility are submitted to the National Radiology Data Registry (NRDR) Dose Index Registry (DIR) with the [employer] (A[employer]). RADIATION OPTIMIZATION: All CT scans at this facility use at least one of these dose optimization te chniques: automated exposure control; mA and/or kV adjustment per patient size (includes targeted exa ms where dose is matched to clinical indication); or iterative reconstruction.
[2021-04-17 14:17] LABS: Abs Immature Grans 0.01 10^3/uL (0.0-0.06); Absolute Basophil Count 0.03 10^3/uL (0.0-0.2); Absolute Eosinophil Count 0.12 10^3/uL (0.0-0.7); Absolute Lymphocyte Count 2.25 10^3/uL (1.2-3.4); Absolute Monocyte Count 0.64 10^3/uL (0.1-0.8); Basophils % 0.5; HCT 37.2 % (36.0-46.0); HGB 12.2 g/dL (11.2-15.7); Immature Grans % 0.2; Lymphocytes % 37.8; MCH 29.5 pg (27.0-33.0); MCHC 32.8 % (32.0-36.0); MCV 90.1 fL (80-95); MPV 11.7 fL (8.0-11.0); Monocytes % 10.8; Neutrophils % 48.7; Nucleated RBC 0 %; Platelet Count 247 10^3/uL (130-400); RBC 4.13 10^6/uL (3.93-5.22); RDW 14.7 % (11.7-14.6); RDW-SD 48.3 fL; WBC 5.95 10^3/uL (4.4-10.8)
[2021-04-17 14:35] LABS: ALT 34 U/L (14-59); AST 23 U/L (15-37); Albumin 4.2 g/dL (3.4-5.0); Alkaline Phosphatase 82 U/L (46-116); Anion Gap 10.4 mmol/L (3-11); BUN 23 mg/dL (7-18); Bilirubin, Total 0.4 mg/dL (0.2-1.0); CO2 26.6 mmol/L (21.0-32.0); Calcium 9.6 mg/dL (8.5-10.1); Chloride 103 mmol/L (98-107); Estimated GFR 57.15 (mL/min/1.73m2); Glucose 78 mg/dL (74-106); Magnesium 2.1 mg/dL (1.8-2.4); Potassium 4.3 mmol/L (3.5-5.1); Sodium 140 mmol/L (136-145); Total Protein 8.2 g/dL (6.4-8.2)
[2021-04-17] MEDS: ACETAMINOPHEN 1,000 MG/100 ML BTL 400 MG IVPB (14:43)
[2021-04-17 15:08] LABS: Troponin I < 0.05 ng/mL (<0.06)
--- NOTE | 2021-04-17 15:42 | DI.MRI_ITS ---
Exam(s) MR BRAIN WO EXAM: MR BRAIN WO CLINICAL HISTORY: confusion, dysphasia, weakness TECHNIQUE: Multiplanar multisequence MRI of the brain was performed. COMPARISON: No exams were available for comparison FINDINGS: VENTRICLES AND EXTRA AXIAL SPACES: Normal in size and morphology for the patient's age. MIDLINE SHIFT: None. CEREBRAL PARENCHYMA: There are few foci of hyperintense signal on the diffusion-weighted images in th e left parietal lobe. No space-occupying lesion identified. There is a large old left MCA distributi on infarct. There is a small old right occipital infarct. There are areas of hyperintense signal se en in the white matter which may represent small vessel ischemic disease. HEMORRHAGE: None. BRAINSTEM/CEREBELLUM: Normal. CALVARIUM: Normal. VISUALIZED PARANASAL SINUSES/MASTOIDS:Clear. [place] OF [place]: Normal flow void. PITUITARY GLAND: Unremarkable. OTHER FINDINGS: None. IMPRESSION: 1. A few foci of hyperintense signal on the diffusion-weighted images in the left parietal lobe which may represent an acute infarct. 2. Old left MCA distribution infarct and old right occipital infarct. 3. Results of this exam have been verbally communicated with provider. DATA REPOSITORY:
[2021-04-17] MEDS: Normal Saline 500 ML IV (15:50)
--- NOTE | 2021-04-17 16:05 | NUR.NOTE ---
Nursing Note:PT RETURN FROM DI, IVF INFUSING ORDERED, PT REQUEST SISTER TO RETURN & IS AT BEDSIDE, CONT. TO MONITOR.
[2021-04-17 17:01] LABS: Bilirubin Negative (Negative); Blood Negative (Negative); Clarity Clear (Clear); Glucose Negative (Negative); Ketones Negative (Negative); Leukocyte Esterase Negative (Negative); Nitrite Negative (Negative); Urobilinogen 0.2 EU/dL (Up TO 0.2); pH 6.5 (5-8)
[2021-04-17] MEDS: levETIRAcetam 1,000 MG in Normal Saline 100 ML 400 MG IVPB (17:13)
--- NOTE | 2021-04-18 08:46 | NUR.NOTE ---
referral to neurology for possible seizure
== END 2021-04-17 17:44 | disposition home or self-care (01) ==
PROVIDERS: Emergency Provider Physician Assistant
DX: R41.82 Altered mental status, unspecified (principal); I48.0 Paroxysmal atrial fibrillation; R47.02 Dysphasia; R53.1 Weakness; R29.810 Facial weakness; H53.8 Other visual disturbances
CPT/HCPCS: 36416; 70496; 70498; 80053; 82962; 93005; 96361; 96365; 96367; 99291; 70551; 71045; 81003; 83735; 84484; 85025; 93010; J0131; J1953; J3490

== ENCOUNTER 2021-07-09 00:25 | Outpatient (CLI) | payer MEDICAID, SELFPAY ==
--- NOTE | 2021-07-09 | DI.RAD_ITS ---
Exam(s) XR HIP LT COMPLETE AP PELVIS EXAM: XR HIP LT COMPLETE AP PELVIS CLINICAL HISTORY: FELL, LT HIP PAIN. TECHNIQUE: 2D digital imaging was performed of the left hip. Three views were obtained. AP pelvis and lateral left hip views were obtained. COMPARISON: No exams were available for comparison FINDINGS: BONES: No acute fracture is present. No bony destructive lesion is seen. JOINTS: No dislocation present. SOFT TISSUE: Normal. IMPRESSION: No acute fracture or dislocation. DATA REPOSITORY: RADIATION DOSE DELIVERED:
== END 2021-07-09 00:45 ==
PROVIDERS: Visit Provider Nurse Practitioner Family
DX: M25.552 Pain in left hip (principal); W19.XXXA Unspecified fall, initial encounter
CPT/HCPCS: 73502

== ENCOUNTER 2021-07-19 16:27 | Outpatient (REF) | payer MEDICAID, SELFPAY ==
[2021-07-19 15:58] LABS: Abs Immature Grans 0.01 10^3/uL (0.0-0.06); Absolute Basophil Count 0.02 10^3/uL (0.0-0.2); Absolute Eosinophil Count 0.07 10^3/uL (0.0-0.7); Absolute Lymphocyte Count 1.79 10^3/uL (1.2-3.4); Absolute Monocyte Count 0.55 10^3/uL (0.1-0.8); Absolute Neutrophil Count 3.51 10^3/uL (1.2-6.7); Basophils % 0.3; Eosinophils % 1.2; HCT 36.2 % (36.0-46.0); HGB 12.1 g/dL (11.2-15.7); Immature Grans % 0.2; Lymphocytes % 30.1; MCH 30.4 pg (27.0-33.0); MCHC 33.4 % (32.0-36.0); Monocytes % 9.2; Nucleated RBC 0 %; Platelet Count 242 10^3/uL (130-400); RBC 3.98 10^6/uL (3.93-5.22); RDW 13.8 % (11.7-14.6); RDW-SD 45.3 fL; WBC 5.95 10^3/uL (4.4-10.8)
[2021-07-19 16:23] LABS: ALT 21 U/L (14-59); AST 12 U/L (15-37); Alkaline Phosphatase 80 U/L (46-116); Anion Gap 11.7 mmol/L (3-11); BUN 23 mg/dL (7-18); Bilirubin, Total 0.3 mg/dL (0.2-1.0); CO2 21.3 mmol/L (21.0-32.0); Calcium 9.3 mg/dL (8.5-10.1); Chloride 107 mmol/L (98-107); Estimated GFR 57.15 (mL/min/1.73m2); Glucose 102 mg/dL (74-106); Potassium 3.9 mmol/L (3.5-5.1); Sodium 140 mmol/L (136-145); TSH 2.07 uIU/mL (0.36-3.74); Total Protein 7.4 g/dL (6.4-8.2); Uric Acid 4.6 mg/dL (2.6-6.0)
== END 2021-07-19 16:28 | disposition home or self-care (01) ==
LOC: NCHCN 16:27
PROVIDERS: Visit Provider Nurse Practitioner Family
DX: E03.9 Hypothyroidism, unspecified (principal); M10.9 Gout, unspecified; I50.9 Heart failure, unspecified
CPT/HCPCS: 80053; 84443; 84550; 85025

== ENCOUNTER 2021-08-13 09:46 | Outpatient (CLI) | payer MEDICAID, SELFPAY ==
--- NOTE | 2021-08-13 09:15 | DI.RAD_ITS ---
Exam(s) XR SHOULDER RT COMPLETE 2+V EXAM: XR SHOULDER RT COMPLETE 2+V CLINICAL HISTORY: right shoulder pain. TECHNIQUE: 2D digital imaging was performed of the right shoulder. Three images were obtained. AP, Grashey, Y-view and axillary views were obtained. COMPARISON: CR XR PORTABLE CHEST AP from 04/17/2021 FINDINGS: BONES: No acute fracture is present. No bony destructive lesion is seen. JOINTS: No dislocation present. Degenerative changes are seen at the acromioclavicular joint. [place] umeral joint is well maintained. SOFT TISSUE: Normal. IMPRESSION: Degenerative changes seen at the acromioclavicular joint. DATA REPOSITORY: RADIATION DOSE DELIVERED:
== END 2021-08-13 09:47 | disposition home or self-care (01) ==
LOC: DIORS 09:46
PROVIDERS: PCP Nurse Practitioner Family; Referring Provider Nurse Practitioner Family; Visit Provider Student in an Organized Health Care Education/Training Program
DX: M25.511 Pain in right shoulder (principal); M19.011 Primary osteoarthritis, right shoulder
CPT/HCPCS: 73030

== ENCOUNTER 2021-10-17 16:21 | Emergency (ER) | payer MEDICAID, SELFPAY ==
[2021-10-17] VITALS (149 sets, daily range): BP systolic 97–161; BP diastolic 65–102; PULSE 61–91; RESP 12–24; TEMP 36.3; O2SAT 93–100
--- NOTE | 2021-10-17 16:15 | RT.EKG_ITS ---
APPROVED REPORT Exam: Resting ECG Reason for Exam: CHEST PAIN Patient Location: E HR:69 bpm ECG Measurements Heart Rate 69 AXIS OR 203 P 25 QRSd 81 QRS 64 QT 431 T 83 QTc 460 Conclusion Sinus rhythm...normal P axis, V-rate 60- 99 Borderline prolonged OR interval...OR >202, V-rate 50- 90. Sinus. Normal axis. No STEMI. I have reviewed and interpreted ECG and agree with software generated interpretation.
--- NOTE | 2021-10-17 16:34 | W.ED.GENAD ---
Discharge Plan Disposition Patient Disposition: HOME Condition: Stable Discharge Details Clinical Impression: Headache, Chest pain Primary Care Provider: KRISTEN MCDONALD ED Provider: Rosa Cárdenas Home Meds and New Rx's Prescriptions: Continued atorvastatin 80 mg tablet 80 mg PO DAILY gabapentin 300 mg capsule 300 mg PO BID lisinopril 20 mg tablet 20 mg PO DAILY metoprolol tartrate 25 mg tablet 12.5 mg PO TID Label Comments: holding for parameters SBP<100, HR<60 01/23/21 RH sertraline 25 mg tablet 25 mg PO DAILY magnesium oxide 400 mg magnesium capsule 400 mg PO BID topiramate 100 mg tablet 100 mg PO BID prochlorperazine maleate 5 mg tablet 5 mg PO TID PRN lorazepam [Ativan] 0.5 mg tablet 0.5 mg PO TID PRN diltiazem HCl 60 mg tablet 60 mg PO BID escitalopram oxalate 10 mg tablet 10 mg PO DAILY tramadol 50 mg tablet 50 mg PO Q6H PRN zinc 50 mg tablet 50 mg PO DAILY Artificial Tears (cmc) 1 % drops 2 drp ophthalmic (eye) BID bisacodyl [Dulcolax (bisacodyl)] 10 mg suppository 10 mg NM ONCE PRN Rx Instructions: after MOM is administered Fleet Enema 19-7 gram/118 mL enema 118 ml NM ONCE PRN Rx Instructions: After MOM and suppository have been administered without results. loperamide 2 mg tablet 2 mg PO Q6H PRN magnesium hydroxide [Dulcolax (magnesium hydroxide)] 400 mg/5 mL suspension 30 ml PO DAILY PRN multivitamin with minerals Capsule 1 cap PO DAILY sennosides-docusate sodium 8.6-50 mg tablet 2 tab-cap PO BID ondansetron HCl [Zofran] 4 mg tablet 4 mg PO Q6H Galzin 50 mg (zinc) capsule 50 mg PO DAILY acetaminophen 325 mg Tablet 650 mg PO Q4H PRN polyethylene glycol 3350 [Miralax] 17 gram Powder In Packet 17 g PO DAILY allopurinol 100 mg Tablet 100 mg PO DAILY fluticasone propionate 50 mcg/actuation [place],Suspension 1 spray INTRANASAL DAILY loratadine 10 mg Tablet 10 mg PO DAILY Eliquis 5 mg tablet 5 mg PO BID Qty: 60 0RF Discharge Instructions Instructions: Chest Pain (ED), General Headache (ED) Additional Instructions: Your lab work, EKGs and imaging today is reassuring and shows no evidence of acute concerning or significant findings. Drink plenty of fluids and get plenty of rest. Take your Tylenol or tramadol that you have as needed and directed for pain. Follow-up with your primary care doctor in 1 week for re-evaluation and for referral for stress test if indicated or desired. Return to the emergency department with any worsening or new concerning symptoms. 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 She also endorses headache. Sister states patient appears confused and that she would normally know her last name and location. Patient is oriented x1 and knows her first name but unable to state her last name, date or location. Her vitals are within normal limits. She is able to answer most questions. She has right arm weakness and right leg paralysis which is her baseline. No new focal deficits noted. EKG done on arrival which notes a rate of 69, sinus, normal axis, no STEMI and nondiagnostic. Differential diagnosis includes ACS, CVA, electrolyte abnormality, arrhythmia, COVID, UTI, dehydration. History and presentation does not appear consistent with PE, dissection, meningitis. We will place an IV, bolus IV fluids, screening labs, urinalysis, CT head, chest x-ray. This patient was evaluated during a time of global shortage of iodinated contrast media. Based on guidance from the [employer], best practices, and local institutional approaches, an alternative path for evaluating and managing the patient may have been employed in order to provide optimal care during this shortage. The current situation has been discussed with the patient and her sister and she is agreeable and understanding. 1930 --labs and imaging reviewed. Normal white blood cell count and hemoglobin. Normal electrolytes. Urinalysis negative. COVID-negative. Chest x-ray and CT head negative. Patient had 2 negative troponins. She had a repeat EKG which was unchanged and showed no STEMI and nondiagnostic. Patient reassessed and she feels comfortable going back to the rehab. She states she would like to go back to go to sleep. She has remained hemodynamically stable. Advised to follow-up with her primary care doctor in 1 week for reevaluation and for referral for stress test if indicated or desired. Medical Records Medical records reviewed: Yes I reviewed the patient's medical records. Imaging Data Radiologic Study: Radiologist's impression: CT Head Without Contrast Exam date and time: 10/17/2021 5:07 PM Age: 56 years old Clinical indication: Stroke-like symptoms; Altered mental status/memory loss and headache; Additional info: H/o stroke - 1 year. TECHNIQUE: Imaging protocol: Computed tomography of the head without contrast. Total images: 952 Radiation optimization: All CT scans at this facility use at least one of these dose optimization techniques: automated exposure control; mA and/or kV adjustment per patient size (includes targeted exams where dose is matched to clinical indication); or iterative reconstruction. Other technique: STROKE PROTOCOL was implemented. COMPARISON: MR BRAIN WO 04/17/2021 3:18 PM FINDINGS: Brain: Again noted is encephalomalacia in the distribution of the left middle cerebral artery involving cortex as well as the left lentiform nucleus. There is a chronic focus of white matter infarction adjacent to the right ventricular atrium. Cortical ribbon and right-sided central mercado structures are otherwise maintained. Mild chronic atrophy and white matter disease.? No hemorrhage. Cerebral ventricles: There is ex vacuo dilatation of the left lateral ventricle. Paranasal sinuses: Chronic sphenoid sinusitis. Mastoid air cells: Mastoid air cells are clear. Orbital cavities: Both orbital globes are again noted to be increased in AP dimension, left greater than right, which may be secondary to staphylomas Bones/joints: No significant bony abnormality. No fracture. Soft tissues: Unremarkable. IMPRESSION: 1. No acute intracranial abnormality. 2. Old left MCA distribution infarct. 3. Old right posterior white matter infarct. XR Chest Exam date and time: 10/17/2021 5:09 PM Age: 56 years old Clinical indication: Pain; Chest pressure; Patient HX: H/o stroke; Additional info: H/o stroke - 1 year. TECHNIQUE: Imaging protocol: XR of the chest. Views: 2 views. Total images: 2 COMPARISON: CR XR PORTABLE CHEST AP 04/17/2021 12:59 PM FINDINGS: Lungs: Lungs are clear without consolidation. Pulmonary linnea: Unremarkable contours. Pleural spaces: No pleural effusion. No pneumothorax. Heart/Mediastinum: Stable mediastinal contours. Mild cardiomegaly. Bones/joints: Unremarkable. Intraperitoneal space: Visualized upper abdomen is unremarkable. IMPRESSION: No acute findings.? No pneumonia. Lab Data Lab results reviewed: Yes I reviewed the patient's lab results. Labs: Laboratory Tests Range/Units 10/17/21 10/17/21 10/17/21 16:39 16:39 17:30 WBC (4.4-10.8) 10^3/uL 5.85 RBC (3.93-5.22) 10^6/uL 4.10 Hgb (11.2-15.7) g/dL 12.7 Hct (36.0-46.0) % 36.9 MCV (80-95) fL 90 MCH (27.0-33.0) pg 31.0 MCHC (32.0-36.0) % 34.4 RDW (11.7-14.6) % 13.9 Plt Count (130-400) 10^3/uL 193 MPV (8.0-11.0) fL 12.0 H Immature Gran % 0.2 Neutrophils % 54.1 Lymphocytes % 35.0 Monocytes % 8.9 Eosinophils % 1.5 Basophils % 0.3 Nucleated RBC % (0.0-0.3) % 0.0 Absolute Neutrophils (1.2-6.7) 10^3/uL 3.16 Absolute Lymphocytes (1.2-3.4) 10^3/uL 2.05 Absolute Monocytes (0.1-0.8) 10^3/uL 0.52 Absolute Eosinophils (0.0-0.7) 10^3/uL 0.09 Absolute Basophils (0.0-0.2) 10^3/uL 0.02 Sodium (136-145) mmol/L 141 Potassium (3.5-5.1) mmol/L 4.5 Chloride (98-107) mmol/L 106 Carbon Dioxide (21.0-32.0) mmol/L 26.2 Anion Gap (3-11) mmol/L 8.8 BUN (7-18) mg/dL 25 H Creatinine (0.55-1.02) mg/dL 0.9 Estimated GFR/1.73 m2 (mL/min/1.73m2) >= 60.00 Glucose (74-106) mg/dL 88 Calcium (8.5-10.1) mg/dL 9.7 Magnesium (1.8-2.4) mg/dL 2.2 Total Bilirubin (0.2-1.0) mg/dL 0.3 AST (15-37) U/L 24 ALT (14-59) U/L 26 Alkaline Phosphatase (46-116) U/L 93 Troponin I (<or=60) ng/L < 50 Total Protein (6.4-8.2) g/dL 7.6 Albumin (3.4-5.0) g/dL 3.7 Urine Color (Yellow) Urine Clarity (Clear) Urine pH (5-8) Ur Specific Gerald (1.005-1.025) Urine Protein (Negative) mg/dL Urine Ketones (Negative) mg/dL Urine Blood (Negative) Urine Nitrite (Negative) Urine Bilirubin (Negative) Urine Urobilinogen (Up TO 0.2) EU/dL Ur Leukocyte Esterase (Negative) Urine Glucose (Negative) mg/dL COVID-19 Source Nasopharynx SARS-CoV-2 (PCR) (Negative) Negative Range/Units 10/17/21 10/17/21 17:45 18:57 WBC (4.4-10.8) 10^3/uL RBC (3.93-5.22) 10^6/uL Hgb (11.2-15.7) g/dL Hct (36.0-46.0) % MCV (80-95) fL MCH (27.0-33.0) pg MCHC (32.0-36.0) % RDW (11.7-14.6) % Plt Count (130-400) 10^3/uL MPV (8.0-11.0) fL Immature Gran % Neutrophils % Lymphocytes % Monocytes % Eosinophils % Basophils % Nucleated RBC % (0.0-0.3) % Absolute Neutrophils (1.2-6.7) 10^3/uL Absolute Lymphocytes (1.2-3.4) 10^3/uL Absolute Monocytes (0.1-0.8) 10^3/uL Absolute Eosinophils (0.0-0.7) 10^3/uL Absolute Basophils (0.0-0.2) 10^3/uL Sodium (136-145) mmol/L Potassium (3.5-5.1) mmol/L Chloride (98-107) mmol/L Carbon Dioxide (21.0-32.0) mmol/L Anion Gap (3-11) mmol/L BUN (7-18) mg/dL Creatinine (0.55-1.02) mg/dL Estimated GFR/1.73 m2 (mL/min/1.73m2) Glucose (74-106) mg/dL Calcium (8.5-10.1) mg/dL Magnesium (1.8-2.4) mg/dL Total Bilirubin (0.2-1.0) mg/dL AST (15-37) U/L ALT (14-59) U/L Alkaline Phosphatase (46-116) U/L Troponin I (<or=60) ng/L < 50 Total Protein (6.4-8.2) g/dL Albumin (3.4-5.0) g/dL Urine Color (Yellow) Yellow Urine Clarity (Clear) Cloudy Urine pH (5-8) 7.5 Ur Specific Gerald (1.005-1.025) 1.020 Urine Protein (Negative) mg/dL Negative Urine Ketones (Negative) mg/dL Negative Urine Blood (Negative) Negative Urine Nitrite (Negative) Negative Urine Bilirubin (Negative) Negative Urine Urobilinogen (Up TO 0.2) EU/dL 0.2 Ur Leukocyte Esterase (Negative) Negative Urine Glucose (Negative) mg/dL Negative COVID-19 Source SARS-CoV-2 (PCR) (Negative) ECG Data Attestation: I personally reviewed and interpreted this ECG (s) as follows: Interpretation: #1 -- Rate of 69, sinus, normal axis, no STEMI. #2 -- Rate of 66, sinus, normal axis, no STEMI. HPI General Mode of arrival: EMS. Date/Time Provider Initiated Documentation: 10/17/21 16:33. Limitations to Documentation: altered mental status and physical limitation. Information obtained by: patient and family. HPI Narrative: Patient is a 56-year-old female with a history of L temporal and parietal CVA with residual Right sided weakness in November 2020 who is now bedbound and unable to walk presents from health and rehab for chest pain since 1 PM today. Patient states the pain has been constant and sharp. She also admits to nausea and shortness of breath. Patient is also complaining of headaches. Patient is a poor historian. Sister is at bedside who states that patient appears more confused than usual. She denies any fever, abdominal pain, vomiting, diarrhea. Related Data Home Medications Medication Instructions Recorded Confirmed atorvastatin 80 mg tablet 80 mg PO DAILY 01/24/21 10/17/21 gabapentin 300 mg capsule 300 mg PO BID 01/24/21 10/17/21 lisinopril 20 mg tablet 20 mg PO DAILY 01/24/21 10/17/21 magnesium oxide 400 mg PO BID 04/02/21 10/17/21 sertraline 25 mg tablet 25 mg PO DAILY 04/02/21 10/17/21 acetaminophen 325 mg tablet 650 mg PO Q4H PRN 04/17/21 10/17/21 allopurinol 100 mg tablet 100 mg PO DAILY 04/17/21 10/17/21 apixaban 5 mg tablet (Eliquis) 5 mg PO BID #60 tabs 04/17/21 10/17/21 fluticasone propionate 50 1 spray intranasal DAILY 04/17/21 10/17/21 mcg/actuation nasal spray,suspension loratadine 10 mg tablet 10 mg PO DAILY 04/17/21 10/17/21 polyethylene glycol 3350 17 gram 17 g PO DAILY 04/17/21 10/17/21 oral powder packet (Miralax) bisacodyl 10 mg rectal suppository 10 mg NM ONCE PRN 04/23/21 10/17/21 (Dulcolax (bisacodyl)) carboxymethylcellulose sodium 1 % 2 drp ophthalmic (eye) BID 04/23/21 10/17/21 eye drops (Artificial Tears (carboxymethylcellulose)) loperamide 2 mg tablet 2 mg PO Q6H PRN 04/23/21 10/17/21 magnesium hydroxide 400 mg/5 mL 30 ml PO DAILY PRN 04/23/21 10/17/21 oral suspension (Dulcolax (magnesium hydroxide)) metoprolol tartrate 25 mg tablet 12.5 mg PO TID 04/23/21 10/17/21 multivitamin with minerals 1 cap PO DAILY 04/23/21 10/17/21 ondansetron HCl 4 mg tablet 4 mg PO Q6H 04/23/21 10/17/21 (Zofran) sennosides 8.6 mg-docusate sodium 2 tab-cap PO BID 04/23/21 10/17/21 50 mg tablet sodium phosphates 19 gram-7 118 ml NM ONCE PRN 04/23/21 10/17/21 gram/118 mL enema (Fleet Enema) prochlorperazine maleate 5 mg 5 mg PO TID PRN 06/25/21 10/17/21 tablet topiramate 100 mg tablet 100 mg PO BID 06/25/21 10/17/21 diltiazem HCl 60 mg tablet 60 mg PO BID 08/13/21 10/17/21 escitalopram oxalate 10 mg tablet 10 mg PO DAILY 08/13/21 10/17/21 lorazepam 0.5 mg tablet (Ativan) 0.5 mg PO TID PRN 08/13/21 10/17/21 tramadol 50 mg tablet 50 mg PO Q6H PRN 08/13/21 10/17/21 zinc 50 mg tablet 50 mg PO DAILY 08/13/21 10/17/21 zinc acetate 50 mg (zinc) capsule 50 mg PO DAILY 09/24/21 10/17/21 (Galzin) Previous Rx's Medication Instructions Recorded apixaban 5 mg tablet (Eliquis) 5 mg PO BID #60 tabs 04/17/21 Allergies Allergy/AdvReac Type Severity Reaction Status Date / Time codeine Allergy Unknown Verified 10/17/21 16:27 Penicillins Allergy Unknown Verified 10/17/21 16:27 strawberry Allergy Unknown Verified 10/17/21 16:27 General Stated Complaint: Chest/Rib FAINA: 2 Review of Systems All systems reviewed & are unremarkable except as noted in HPI and below Constitutional Constitutional: Denies chills, Denies excessive sweating, Denies fatigue, Denies fever(s), Reports headache(s), Denies weakness and Denies weight loss Eyes Eyes: Reports system reviewed and no additional complaints, except as documented and Denies blurry vision ENT Ears, Nose, Mouth, and Throat: Denies vertigo, Denies dizziness, Denies otalgia, Reports headache(s), Denies nasal congestion, Denies sore throat and Denies throat swelling Cardiovascular Cardiovascular: Reports chest pain, Denies syncope, Denies rapid heart rate and Denies dyspnea Respiratory Respiratory: Denies chest congestion, Denies cough, Denies pain on inspiration and Denies dyspnea Gastrointestinal Gastrointestinal: Denies abdominal pain, Denies diarrhea and Denies vomiting Genitourinary Genitourinary: Denies hematuria, Denies dysuria and Denies flank pain Musculoskeletal Musculoskeletal: Denies back pain and Denies joint swelling Integumentary/Breasts Skin/Breast: Denies lesions and Denies rash Neurologic Neurologic: Denies behavioral changes, Denies confusion, Denies vertigo, Denies dizziness, Denies syncope, Reports headache(s), Denies localized weakness and Denies weakness Psychiatric Psychiatric: Denies behavioral changes, Denies confusion and Denies depression Endocrine Endocrine: Denies excessive sweating and Denies fatigue Hematologic/Lymphatic Hematologic/Lymphatic: Denies easy bruising and Denies lymphadenopathy Allergic/Immunologic Allergic/Immunologic: Denies throat swelling PFSH All Active Problems (Updated 10/17/21 @ 19:35 by Rosa Cárdenas DO) Headache (Acute) Chest pain (Acute) Osteoarthritis of right shoulder (Acute) Bursitis of right shoulder (Acute) Adhesive capsulitis of right shoulder (Acute) Migraine headache with aura (Acute) Chronic headache (Acute) Spell of altered cognition (Acute) AMS (altered mental status) (Acute) Heart failure (Acute) Medical History (Updated 10/17/21 @ 19:35 by Rosa Cárdenas DO) CVA (cerebral vascular accident) 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/05/20, aphasia, dysphasia, Gout Migraine headache without aura Paroxysmal A-fib Pulmonary HTN Respiratory arrest before cardiac arrest Surgical History S/P cholecystectomy Social History Smoking/Tobacco Use Status: Never Smoking risk assessment performed?: Yes Alcohol Intake: never Substance use type: does not use Current gender identity: female Do you feel safe at home: Yes Exam Const General: cooperative Orientation: alert, awake, oriented to person, not oriented to place and not oriented to time [facility] Head: normal to inspection Ears: hearing grossly normal bilaterally and external ears normal General nose exam: external nose normal Face and sinus: normal facial exam Mouth: oral mucosae normal Teeth and gingiva: dentition normal Throat: posterior oropharynx normal Eyes General: appearance normal, both eyes and all related structures Eyelids: eyelids normal Pupils: PERRL EOM: EOM intact bilaterally Neck Neck: normal visual inspection Lymphatic: no lymphadenopathy noted Chest Chest: normal inspection of the chest Resp Effort & Inspection: normal respiratory effort and able to speak in complete sentences Auscultation: clear to auscultation bilaterally Cardio Rate: regular rate Rhythm: regular rhythm GI Inspection: normal to inspection Palpation: soft, not firm, no guarding, no hepatosplenomegaly, no masses and nontender Auscultation: normal bowel sounds Back/Spine/Pelvis Back: no CVA tenderness Skin General skin exam: no rashes or lesions noted Neuro General: patient alert and patient awake Cognition: normal cognition Speech: speech normal Sensory Exam: no sensory deficits noted Other: Muscle strength left upper and lower extremity 5/5. Muscle strength right upper extremity 4/5. Unable to lift right leg. Extrem General: normal to inspection, full ROM and capillary refill normal Psych Appearance: grossly normal Mental Status: mental status grossly normal Speech and Movement: speech and movement normal Affect: normal affect Thought Process: normal Course Vital Signs Vital signs: Vital Signs Temperature 97.3 F L 10/17/21 16:20 Pulse 91 H 10/17/21 16:20 Respiratory Rate 17 10/17/21 16:20 Blood Pressure 122/72 10/17/21 16:20 Pulse Oximetry 95 10/17/21 16:20 Temperature 97.3 F L 10/17/21 16:20 Temperature Source Tympanic 10/17/21 16:20 Pulse 91 H 10/17/21 16:20 Respiratory Rate 17 10/17/21 16:20 Respiratory Effort 10/17/21 16:26 Respiratory Depth Normal 10/17/21 16:26 Respiratory Pattern Normal 10/17/21 16:26 Blood Pressure 122/72 10/17/21 16:20 Blood Pressure Position Sitting 10/17/21 16:20 Pulse Oximetry 95 10/17/21 16:20 Oxygen Delivery Method Room Air 10/17/21 16:20 Oxygen Flow Rate 0 10/17/21 16:20 Pain Level 5 10/17/21 16:26
--- NOTE | 2021-10-17 16:45 | DI.RAD_ITS ---
Exam(s) XR CHEST 2V PA LATERAL EXAM: XR CHEST 2V PA LATERAL CLINICAL HISTORY: chest pain, r/o acute disease TECHNIQUE: 2D digital imaging was performed of the chest. Two images were obtained. PA and lateral views were obtained. COMPARISON: CR XR PORTABLE CHEST AP from 04/17/2021 FINDINGS: MEDIASTINUM: Normal. HEART: Stable cardiac size. PULMONARY VASCULATURE: Normal. LUNGS: Clear. PLEURAL SPACE: No pleural effusion or pneumothorax. BONE:Within normal limits for the patient's age. OTHER FINDINGS:Normal. IMPRESSION: No acute pulmonary findings. DATA REPOSITORY: RADIATION DOSE DELIVERED:
--- NOTE | 2021-10-17 16:45 | DI.CT_ITS ---
Exam(s) CT HEAD WO EXAM: CT HEAD WO CLINICAL HISTORY: headache, r/o acute cva. TECHNIQUE: Imaging Protocol: Axial computed tomography images with coronal and sagittal reformatted images were created and reviewed COMPARISON: CT CT BRAIN NECK CTA from 04/17/2021 FINDINGS: Ventricles and Extra axial spaces: Normal in size and morphology for the patient's age. Hemorrhage: None. Cerebral parenchyma: There is an old left MCA distribution infarct and an area of encephalomalacia in the right occipital lobe. No acute territorial infarct is seen. There are areas of decreased atten uation in the white matter most consistent with small vessel ischemic disease. Midline shift: None. Brainstem/Cerebellum: Normal. Calvarium: Normal. Visualized Paranasal sinuses/Mastoids: There is mild mucosal thickening in both sphenoid sinuses. Th e remaining visualized paranasal sinuses and mastoid air cells are clear. Soft Tissues: Unremarkable. IMPRESSION: No acute intracranial process. RADIATION DOSE DELIVERED: 673.05mGy.cm Total DLP DATA REPOSITORY: All CT scans at this facility are submitted to the National Radiology Data Registry (NRDR) Dose Index Registry (DIR) with the [employer] ([employer]). RADIATION OPTIMIZATION: All CT scans at this facility use at least one of these dose optimization te chniques: automated exposure control; mA and/or kV adjustment per patient size (includes targeted exa ms where dose is matched to clinical indication); or iterative reconstruction.
[2021-10-17 17:05] LABS: ALT 26 U/L (14-59); AST 24 U/L (15-37); Abs Immature Grans 0.01 10^3/uL (0.0-0.06); Absolute Basophil Count 0.02 10^3/uL (0.0-0.2); Absolute Eosinophil Count 0.09 10^3/uL (0.0-0.7); Absolute Lymphocyte Count 2.05 10^3/uL (1.2-3.4); Absolute Monocyte Count 0.52 10^3/uL (0.1-0.8); Absolute Neutrophil Count 3.16 10^3/uL (1.2-6.7); Albumin 3.7 g/dL (3.4-5.0); Alkaline Phosphatase 93 U/L (46-116); Anion Gap 8.8 mmol/L (3-11); BUN 25 mg/dL (7-18); Basophils % 0.3; Bilirubin, Total 0.3 mg/dL (0.2-1.0); CO2 26.2 mmol/L (21.0-32.0); CREATININE 0.9 mg/dL (0.55-1.02); Calcium 9.7 mg/dL (8.5-10.1); Chloride 106 mmol/L (98-107); Eosinophils % 1.5; Glucose 88 mg/dL (74-106); HCT 36.9 % (36.0-46.0); HGB 12.7 g/dL (11.2-15.7); Immature Grans % 0.2; MCHC 34.4 % (32.0-36.0); MCV 90 fL (80-95); Magnesium 2.2 mg/dL (1.8-2.4); Monocytes % 8.9; Neutrophils % 54.1; Platelet Count 193 10^3/uL (130-400); Potassium 4.5 mmol/L (3.5-5.1); RDW 13.9 % (11.7-14.6); RDW-SD 45.1 fL; Sodium 141 mmol/L (136-145); Total Protein 7.6 g/dL (6.4-8.2); Troponin I < 50 ng/L (<or=60); WBC 5.85 10^3/uL (4.4-10.8)
--- NOTE | 2021-10-17 17:36 | DI.VRAD_ITS ---
PROCEDURE INFORMATION: Exam: CT Head Without Contrast Exam date and time: 10/17/2021 5:07 PM Age: 56 years old Clinical indication: Stroke-like symptoms; Altered mental status/memory loss and headache; Additional info: H/o stroke - 1 year. TECHNIQUE: Imaging protocol: Computed tomography of the head without contrast. Total images: 952 Radiation optimization: All CT scans at this facility use at least one of these dose optimization techniques: automated exposure control; mA and/or kV adjustment per patient size (includes targeted exams where dose is matched to clinical indication); or iterative reconstruction. Other technique: STROKE PROTOCOL was implemented. COMPARISON: MR BRAIN WO 04/17/2021 3:18 PM FINDINGS: Brain: Again noted is encephalomalacia in the distribution of the left middle cerebral artery involving cortex as well as the left lentiform nucleus. There is a chronic focus of white matter infarction adjacent to the right ventricular atrium. Cortical ribbon and right-sided central mercado structures are otherwise maintained. Mild chronic atrophy and white matter disease. No hemorrhage. Cerebral ventricles: There is ex vacuo dilatation of the left lateral ventricle. Paranasal sinuses: Chronic sphenoid sinusitis. Mastoid air cells: Mastoid air cells are clear. Orbital cavities: Both orbital globes are again noted to be increased in AP dimension, left greater than right, which may be secondary to staphylomas Bones/joints: No significant bony abnormality. No fracture. Soft tissues: Unremarkable. IMPRESSION: 1. No acute intracranial abnormality. 2. Old left MCA distribution infarct. 3. Old right posterior white matter infarct. ASSESSMENT: ASPECTS ([place] Stroke Program Early CT Score) is 10. Dictated and Authenticated by: Marcio Rosen MD. Ordering:HENRY Lee MD
--- NOTE | 2021-10-17 17:38 | DI.VRAD_ITS ---
PROCEDURE INFORMATION: Exam: XR Chest Exam date and time: 10/17/2021 5:09 PM Age: 56 years old Clinical indication: Pain; Chest pressure; Patient HX: H/o stroke; Additional info: H/o stroke - 1 year. TECHNIQUE: Imaging protocol: XR of the chest. Views: 2 views. Total images: 2 COMPARISON: CR XR PORTABLE CHEST AP 04/17/2021 12:59 PM FINDINGS: Lungs: Lungs are clear without consolidation. Pulmonary linnea: Unremarkable contours. Pleural spaces: No pleural effusion. No pneumothorax. Heart/Mediastinum: Stable mediastinal contours. Mild cardiomegaly. Bones/joints: Unremarkable. Intraperitoneal space: Visualized upper abdomen is unremarkable. IMPRESSION: No acute findings. No pneumonia. Dictated and Authenticated by: Marcio Rosen MD. Ordering:HENRY Lee MD
[2021-10-17 17:39] LABS: Source Nasopharynx
[2021-10-17] MEDS: ACETAMINOPHEN 1,000 MG/100 ML BTL 400 MG IVPB (17:41)
[2021-10-17] MEDS: Famotidine 20 MG/2 ML VIAL IVP (17:41)
[2021-10-17] MEDS: Normal Saline 1,000 ML 1000 ML IV (17:41)
--- NOTE | 2021-10-17 18:15 | RT.EKG_ITS ---
APPROVED REPORT Exam: Resting ECG Reason for Exam: chest pain Patient Location: E HR:66 bpm ECG Measurements Heart Rate 66 AXIS NH 204 P 17 QRSd 89 QRS 68 QT 464 T 63 QTc 485 Conclusion Sinus rhythm...normal P axis, V-rate 60- 99 Borderline prolonged NH interval...NH >202, V-rate 50- 90 Low voltage, precordial leads...precordial leads <1.0mV. Sinus. Normal axis. No STEMI. I have reviewed and interpreted ECG and agree with software generated interpretation.
[2021-10-17] MEDS: traMADol 50 MG TAB PO (18:30)
[2021-10-17 18:31] LABS: Bilirubin Negative (Negative); Blood Negative (Negative); Clarity Cloudy (Clear); Glucose Negative (Negative); Ketones Negative (Negative); Leukocyte Esterase Negative (Negative); Nitrite Negative (Negative); Urobilinogen 0.2 EU/dL (Up TO 0.2); pH 7.5 (5-8)
[2021-10-17 18:33] LABS: COVID-19 PCR Negative (Negative)
[2021-10-17 19:22] LABS: Troponin I < 50 ng/L (<or=60)
--- NOTE | 2021-10-17 20:05 | NUR.NOTE ---
Pt report called to Margaret at [facility] at 2005.
== END 2021-10-17 20:11 | disposition home or self-care (01) ==
PROVIDERS: Emergency Provider Physician Assistant; PCP Nurse Practitioner Family
DX: R51.9 Headache, unspecified (principal); R07.9 Chest pain, unspecified; I69.351 Hemiplegia and hemiparesis following cerebral infarction affecting right dominant side; Z20.822 Contact with and (suspected) exposure to COVID-19
CPT/HCPCS: 36415; 80053; 87635; 93005; 96361; 96365; 99284; 70450; 71046; 81003; 83735; 84484; 85025; 93010; J0131

== ENCOUNTER 2021-12-12 14:55 | Outpatient (REF) | payer MEDICAID, SELFPAY ==
[2021-12-12 13:12] LABS: Bilirubin Negative (Negative); Blood Negative (Negative); Clarity Clear (Clear); Glucose Negative (Negative); Ketones Negative (Negative); Leukocyte Esterase Negative (Negative); Nitrite Negative (Negative); Urobilinogen 0.2 EU/dL (Up TO 0.2); pH 6.5 (5-8)
== END 2021-12-12 14:56 | disposition home or self-care (01) ==
LOC: LBN 14:55
PROVIDERS: PCP Nurse Practitioner Family; Visit Provider Nurse Practitioner Family
DX: N39.0 Urinary tract infection, site not specified (principal)
CPT/HCPCS: 81003

== ENCOUNTER 2021-12-13 15:45 | Outpatient (REF) | payer MEDICAID, SELFPAY ==
[2021-12-13 18:04] LABS: ALT 29 U/L (14-59); AST 17 U/L (15-37); Albumin 3.9 g/dL (3.4-5.0); Alkaline Phosphatase 88 U/L (46-116); Anion Gap 5.6 mmol/L (3-11); BUN 29 mg/dL (7-18); Bilirubin, Total 0.3 mg/dL (0.2-1.0); CO2 24.4 mmol/L (21.0-32.0); CREATININE 1.1 mg/dL (0.55-1.02); Calcium 9.3 mg/dL (8.5-10.1); Chloride 104 mmol/L (98-107); Estimated GFR 51.02 (mL/min/1.73m2); FREE T4 1.07 ng/dL (0.76-1.46); Glucose 99 mg/dL (74-106); Potassium 3.9 mmol/L (3.5-5.1); Sodium 134 mmol/L (136-145); TSH (W/Ref FT4) 2.69 uIU/mL (0.36-3.74); Total Protein 7.1 g/dL (6.4-8.2)
[2021-12-13 18:09] LABS: HCT 36.4 % (36.0-46.0); HGB 12.5 g/dL (11.2-15.7); MCH 31.4 pg (27.0-33.0); MCHC 34.3 % (32.0-36.0); MCV 92 fL (80-95); MPV 12.5 fL (8.0-11.0); Platelet Count 200 10^3/uL (130-400); RBC 3.98 10^6/uL (3.93-5.22); RDW 13.7 % (11.7-14.6); RDW-SD 45.6 fL; WBC 5.42 10^3/uL (4.4-10.8)
== END 2021-12-13 15:46 | disposition home or self-care (01) ==
LOC: LBN 15:45
PROVIDERS: PCP Nurse Practitioner Family; Visit Provider Nurse Practitioner Family
DX: F32.89 Other specified depressive episodes (principal); I48.92 Unspecified atrial flutter; I50.9 Heart failure, unspecified; G40.89 Other seizures
CPT/HCPCS: 80053; 85027; 84439; 84443

== ENCOUNTER 2022-03-30 14:56 | Outpatient (REF) | payer MEDICAID, SELFPAY | END 2022-03-30 14:57 | disposition home or self-care (01) | LOC: LBN 14:56 | PROVIDERS: PCP Nurse Practitioner Family; Visit Provider Family Medicine | DX: R82.998 Other abnormal findings in urine (principal) | CPT/HCPCS: 87086 ==

== ENCOUNTER 2022-04-16 14:24 | Outpatient (REF) | payer MEDICAID, SELFPAY ==
[2022-04-16 15:18] LABS: CREATININE 0.8 mg/dL (0.55-1.02); Estimated GFR 85.35 (mL/min/1.73m2)
== END 2022-04-16 14:25 | disposition home or self-care (01) ==
LOC: LBN 14:24
PROVIDERS: PCP Nurse Practitioner Family; Visit Provider Family Medicine
DX: R93.5 Abnormal findings on diagnostic imaging of other abdominal regions, including retroperitoneum (principal); Z01.812 Encounter for preprocedural laboratory examination
CPT/HCPCS: 82565

== ENCOUNTER 2022-04-17 13:55 | Emergency (ER) | payer MEDICAID, SELFPAY ==
[2022-04-17 13:53] VITALS: BP 128/71; PULSE 70; TEMP 36.6; O2SAT 100
--- NOTE | 2022-04-17 14:15 | DI.CT_ITS ---
Exam(s) CT ABDOMEN PELVIS W EXAM: CT ABDOMEN PELVIS W CLINICAL HISTORY: lower abdominal pain TECHNIQUE: Imaging Protocol: Axial computed tomography images with coronal and sagittal reformatted images were created and reviewed CONTRAST MATERIAL: Intravenous: Omnipaque 350 Contrast volume:100 mL Oral: None COMPARISON: CT CT CHEST PE ABD PELVIS W from 10/06/2020 FINDINGS: ABDOMEN: Lung Bases: Normal where visualized. Liver: Normal density. There is a tiny hypodensity in the posterior segment of the right lobe of the liver. It is too small for further characterization. No suspicious hepatic masses are seen. Portal, Superior Mesenteric, and Splenic Veins: Unremarkable. Gallbladder and Biliary Tract: Status post cholecystectomy. No significant biliary ductal dilatation . Pancreas: Normal density, no abnormal calcifications or inflammatory process. Spleen: Normal. Adrenals: No masses seen. Kidneys: Normal size, contour and axis. No radiodense stones or obstructive uropathy. There is a tiny hypodensity at the superior aspect of the left kidney. It is too small for further characterization but likely reflects a small cyst. Abdominal Aorta: Abdominal portion non-dilated. Atherosclerosis is present. Bowel: No obstruction or bowel wall thickening. Appendix is unremarkable. Peritoneal Cavity: No ascites, collection or mesenteric inflammatory response. No free air. Lymph Nodes: Within normal limits. Bones: Within normal limits for the patient's age. Soft Tissues: Unremarkable. PELVIS: Bladder: Symmetric distention, no gross wall thickening. Reproductive Organs: Unremarkable as visualized. Lymph Nodes: Within normal limits. Bones: Within normal limits for the patient's age. IMPRESSION: 1. No acute abdominal or pelvic process. 2. Findings were discussed with Dr. Juares at 4:19 p.m. on 04/17/2022. RADIATION DOSE DELIVERED: 974.65mGy.cm Total DLP DATA REPOSITORY: All CT scans at this facility are submitted to the National Radiology Data Registry (NRDR) Dose Index Registry (DIR) with the [employer] ([employer]). RADIATION OPTIMIZATION: All CT scans at this facility use at least one of these dose optimization te chniques: automated exposure control; mA and/or kV adjustment per patient size (includes targeted exa ms where dose is matched to clinical indication); or iterative reconstruction.
--- NOTE | 2022-04-17 14:16 | ED.GENADUL_ITS ---
Discharge Plan Disposition Patient Disposition: Intermediate Facility(SNF) Condition: Stable Discharge Details Clinical Impression: Abdominal pain Primary Care Provider: Wanda Perez ED Provider: Rajeev Juares [place] Meds and New Rx's Prescriptions: Continued gabapentin 300 mg capsule 300 mg PO BID metoprolol tartrate 25 mg tablet 12.5 mg PO TID Label Comments: holding for parameters SBP<100, HR<60 01/23/21 RH atorvastatin 80 mg tablet 80 mg PO QHS lisinopril 20 mg tablet 10 mg PO DAILY sertraline 25 mg tablet 50 mg PO DAILY magnesium oxide 400 mg magnesium capsule 400 mg PO BID topiramate 100 mg tablet 100 mg PO BID diltiazem HCl 60 mg tablet 60 mg PO BID tramadol 50 mg tablet 50 mg PO Q6H PRN omeprazole 20 mg tablet,delayed release (DR/EC) 40 mg PO DAILY diclofenac sodium 1 % gel 2 g topical Q8H PRN bisacodyl [Dulcolax (bisacodyl)] 10 mg suppository 10 mg IN ONCE PRN Rx Instructions: after MOM is administered Fleet Enema 19-7 gram/118 mL enema 118 ml IN ONCE PRN Rx Instructions: After MOM and suppository have been administered without results. loperamide 2 mg tablet 2 mg PO Q6H PRN magnesium hydroxide [Dulcolax (magnesium hydroxide)] 400 mg/5 mL suspension 30 ml PO DAILY PRN multivitamin with minerals Capsule 1 cap PO DAILY Artificial Tears (cmc) 1 % drops 2 drp ophthalmic (eye) BID PRN sennosides-docusate sodium 8.6-50 mg tablet 1 tab-cap PO DAILY acetaminophen 650 mg suppository 650 mg IN Q4H PRN lorazepam 1 mg tablet 1 mg PO TID allopurinol 100 mg Tablet 100 mg PO DAILY fluticasone propionate 50 mcg/actuation [place],Suspension 1 spray INTRANASAL DAILY Eliquis 5 mg tablet 5 mg PO BID Qty: 60 0RF Discharge Instructions Instructions: Abdominal Pain (ED) Additional Instructions: Your cat scan did not show any concerning findings at this time follow up with your primary care provider within 1 week if you feel more ill, have severe worsening pain or persistent vomiting return to the emergency department Medical Decision Making 56yo female with history of prior cva that has left her with aphasia, prior pea arrest, who resides at [facility] comes in with one week of lower abdominal pain. Has had diarrhea, no fevers, chills, chest pain, dyspnea, vomiting. She arrives stable, localizes the pain to the lower left and mid abdomen, no guarding or distention, has tenderness to palpation in the left lower abdomen. Unclear etiology for her pain but given location and a week of worsening pain will obtain ct abd/pelvis, cbc, cmp and lipase. No distention and no vomiting so unlikely sbo. labs show mildly elevated lipase otherwise no acute findings and ct unremarkable as well. She is no longer having pain and has no tenderness on exam. Unclear etiology, given pain resolved do not feel she requires further testing or imaging, will d/c back to rehab, return precautions given Differential Diagnosis Differential Diagnosis: diverticulitis, pancreatitis, appendicitis Sign Out No HPI General Mode of arrival: EMS . Date/Time Provider Initiated Documentation: 04/17/22 13:55 . Information obtained by: patient and family . History of Present Illness 56 year old F presents to the emergency department with the chief complaint of abdominal pain, described as moderate and severe, Patient started experiencing this day(s) (1) and it has been constant. No relieving factors improve symptom(s), No exacerbating factors reported . Patient notes other (diarrhea). Patient did receive the following treatments prior to arrival, none Related Data Home Medications Medication Instructions Recorded Confirmed gabapentin 300 mg capsule 300 mg PO BID 01/24/21 04/17/22 magnesium oxide 400 mg PO BID 04/02/21 04/17/22 sertraline 25 mg tablet 50 mg PO DAILY 04/02/21 04/17/22 allopurinol 100 mg tablet 100 mg PO DAILY 04/17/21 04/17/22 apixaban 5 mg tablet (Eliquis) 5 mg PO BID #60 tabs 04/17/21 04/17/22 fluticasone propionate 50 1 spray intranasal DAILY 04/17/21 04/17/22 mcg/actuation nasal spray,suspension bisacodyl 10 mg rectal suppository 10 mg IN ONCE PRN 04/23/21 03/25/22 (Dulcolax (bisacodyl)) loperamide 2 mg tablet 2 mg PO Q6H PRN 04/23/21 04/17/22 magnesium hydroxide 400 mg/5 mL 30 ml PO DAILY PRN 04/23/21 04/17/22 oral suspension (Dulcolax (magnesium hydroxide)) metoprolol tartrate 25 mg tablet 12.5 mg PO TID 04/23/21 04/17/22 multivitamin with minerals 1 cap PO DAILY 04/23/21 04/17/22 sodium phosphates 19 gram-7 118 ml IN ONCE PRN 04/23/21 04/17/22 gram/118 mL enema (Fleet Enema) topiramate 100 mg tablet 100 mg PO BID 06/25/21 04/17/22 diltiazem HCl 60 mg tablet 60 mg PO BID 08/13/21 04/17/22 tramadol 50 mg tablet 50 mg PO Q6H PRN 08/13/21 04/17/22 atorvastatin 80 mg tablet 80 mg PO QHS 11/21/21 04/17/22 carboxymethylcellulose sodium 1 % 2 drp ophthalmic (eye) BID PRN 11/21/21 03/25/22 eye drops (Artificial Tears (carboxymethylcellulose)) diclofenac sodium 1 % topical gel 2 g topical Q8H PRN 11/21/21 04/17/22 omeprazole 20 mg tablet,delayed 40 mg PO DAILY 11/21/21 04/17/22 release acetaminophen 650 mg rectal 650 mg IN Q4H PRN 03/25/22 04/17/22 suppository lisinopril 20 mg tablet 10 mg PO DAILY 03/25/22 04/17/22 lorazepam 1 mg tablet 1 mg PO TID 03/25/22 04/17/22 sennosides 8.6 mg-docusate sodium 1 tab-cap PO DAILY 03/25/22 04/17/22 50 mg tablet Previous Rx's Medication Instructions Recorded apixaban 5 mg tablet (Eliquis) 5 mg PO BID #60 tabs 04/17/21 Allergies Allergy/AdvReac Type Severity Reaction Status Date / Time codeine Allergy Unknown Verified 04/17/22 14:05 Penicillins Allergy Unknown Verified 04/17/22 14:05 strawberry Allergy Unknown Verified 04/17/22 14:05 General Stated Complaint: Abd Prob FAINA: 3 Review of Systems All systems reviewed & are unremarkable except as noted in HPI and below Constitutional Constitutional: Denies chills, Denies fever(s) and Denies weakness Cardiovascular Cardiovascular: Denies chest pain and Denies dyspnea Respiratory Respiratory: Denies cough and Denies dyspnea Gastrointestinal Gastrointestinal: Denies vomiting Musculoskeletal Musculoskeletal: Denies joint swelling Integumentary/Breasts Skin/Breast: Denies rash Neurologic Neurologic: Denies weakness PFSH All Active Problems (Updated 04/17/22 @ 16:50 by Rajeev Juares MD) Abdominal pain (Acute) Depression (Chronic) Osteoarthritis of right shoulder (Acute) Bursitis of right shoulder (Acute) Adhesive capsulitis of right shoulder (Acute) Migraine headache with aura (Acute) Chronic headache (Acute) Spell of altered cognition (Acute) AMS (altered mental status) (Acute) Heart failure (Acute) Medical History CVA (cerebral vascular accident) 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/05/20, aphasia, dysphasia, Gout Migraine headache without aura Paroxysmal A-fib Pulmonary HTN Respiratory arrest before cardiac arrest Surgical History S/P cholecystectomy Social History Smoking/Tobacco Use Status: Never Smoking risk assessment performed?: Yes Alcohol Intake: never Substance use type: does not use Current gender identity: female Do you feel safe at home: Yes Exam Const General: no acute distress Orientation: alert [facility] Head: normal to inspection Ears: external ears normal General nose exam: external nose normal Mouth: moist mucous membranes Eyes General: appearance normal, both eyes and all related structures Neck Neck: normal visual inspection Resp Effort & Inspection: normal respiratory effort and able to speak in complete sentences Cardio Rate: regular rate GI Palpation: soft and tender Skin General skin exam: no rashes or lesions noted Neuro General: patient alert and patient oriented x3 Extrem General: normal to inspection Psych Mental Status: mental status grossly normal Course Vital Signs Vital signs: Vital Signs Temperature 36.6 C 04/17/22 13:53 Pulse 70 04/17/22 13:53 Blood Pressure 128/71 04/17/22 13:53 Pulse Oximetry 100 04/17/22 13:53 Temperature 36.6 C 04/17/22 13:53 Temperature Source Temporal Artery Scan 04/17/22 13:53 Pulse 70 04/17/22 13:53 Blood Pressure 128/71 04/17/22 13:53 Blood Pressure Position Supine 12/08/22 13:53 Pulse Oximetry 100 04/17/22 13:53 Oxygen Delivery Method Room Air 04/17/22 13:53 Oxygen Flow Rate 0 04/17/22 13:53 Pain Level 9 04/17/22 13:53
[2022-04-17] MEDS: fentaNYL 100 MCG/2 ML VIAL 50 MCG IVP (14:24)
[2022-04-17 14:36] LABS: Absolute Basophil Count 0.01 10^3/uL (0.0-0.2); Absolute Eosinophil Count 0.06 10^3/uL (0.0-0.7); Absolute Lymphocyte Count 1.77 10^3/uL (1.2-3.4); Absolute Monocyte Count 0.33 10^3/uL (0.1-0.8); Absolute Neutrophil Count 1.41 10^3/uL (1.2-6.7); Basophils % 0.3; Eosinophils % 1.7; HCT 34.8 % (36.0-46.0); HGB 11.8 g/dL (11.2-15.7); Lymphocytes % 49.4; MCH 30.3 pg (27.0-33.0); MCHC 33.9 % (32.0-36.0); MCV 90 fL (80-95); MPV 12.2 fL (8.0-11.0); Monocytes % 9.2; Neutrophils % 39.4; Platelet Count 154 10^3/uL (130-400); RBC 3.89 10^6/uL (3.93-5.22); RDW 13.3 % (11.7-14.6); RDW-SD 43.8 fL; WBC 3.58 10^3/uL (4.4-10.8)
[2022-04-17 14:50] LABS: PTT Activated 26.4 sec (21.0-27.5); Prothrombin Time 10.4 sec (9.3-11.0)
[2022-04-17 14:52] LABS: ALT 20 U/L (14-59); AST 16 U/L (15-37); Albumin 3.7 g/dL (3.4-5.0); Alkaline Phosphatase 77 U/L (46-116); Anion Gap 10.2 mmol/L (3-11); BUN 20 mg/dL (7-18); Bilirubin, Total 0.4 mg/dL (0.2-1.0); CO2 24.8 mmol/L (21.0-32.0); CREATININE 1.1 mg/dL (0.55-1.02); Calcium 9.2 mg/dL (8.5-10.1); Chloride 102 mmol/L (98-107); Estimated GFR 58.24 (mL/min/1.73m2); Glucose 94 mg/dL (74-106); Lipase 595 U/L (73-393); Magnesium 2.1 mg/dL (1.8-2.4); Potassium 3.5 mmol/L (3.5-5.1); Sodium 137 mmol/L (136-145); Total Protein 7.5 g/dL (6.4-8.2)
[2022-04-17 15:33] LABS: Bilirubin Negative (Negative); Blood Negative (Negative); Clarity Clear (Clear); Glucose Negative (Negative); Ketones Negative (Negative); Leukocyte Esterase Negative (Negative); Nitrite Negative (Negative); Specific Gravity 1.015 (1.005-1.025); Urobilinogen 0.2 EU/dL (Up TO 0.2)
[2022-04-17] MEDS: Omnipaque 350 MG/ML 100 ML BTL IJ (15:39)
[2022-04-17] MEDS: Normal Saline - Diluent 50 ML VIAL IJ (15:46)
--- NOTE | 2022-04-17 17:33 | NUR.NOTE ---
Nursing Note: this nurse tried calling [facility] x[facility] to give report to Renita's nurse. No answer from facility.
[2022-04-17 20:45] VITALS: BP 145/76; PULSE 70; RESP 18; TEMP 37; O2SAT 94
== END 2022-04-17 17:36 | disposition skilled nursing facility (03) ==
PROVIDERS: Emergency Provider Emergency Medicine; PCP Nurse Practitioner Family
DX: R10.32 Left lower quadrant pain (principal); I48.0 Paroxysmal atrial fibrillation; I69.920 Aphasia following unspecified cerebrovascular disease; R74.8 Abnormal levels of other serum enzymes
CPT/HCPCS: 80053; 83690; 96374; 99285; 74177; 81003; 83735; 85025; 85610; 85730; 99284; J3010; J3490

== ENCOUNTER 2022-05-13 13:27 | Outpatient (REF) | payer MEDICAID, SELFPAY ==
[2022-05-13 11:25] LABS: Bilirubin Negative (Negative); Blood Negative (Negative); Clarity Sl Cloudy (Clear); Glucose Negative (Negative); Ketones Negative (Negative); Leukocyte Esterase Negative (Negative); Nitrite Negative (Negative); Specific Gravity >= 1.030 (1.005-1.025); Urobilinogen 0.2 EU/dL (Up TO 0.2)
== END 2022-05-13 13:28 | disposition home or self-care (01) ==
LOC: LBN 13:27
PROVIDERS: Visit Provider Family Medicine
DX: M62.81 Muscle weakness (generalized) (principal)
CPT/HCPCS: 81003; 87086

== ENCOUNTER 2022-06-18 08:55 | Outpatient (REF) | payer MEDICAID, SELFPAY ==
[2022-06-18 09:11] LABS: Abs Immature Grans 0.01 10^3/uL (0.0-0.06); Absolute Basophil Count 0.03 10^3/uL (0.0-0.2); Absolute Lymphocyte Count 1.59 10^3/uL (1.2-3.4); Absolute Monocyte Count 0.41 10^3/uL (0.1-0.8); Absolute Neutrophil Count 3.19 10^3/uL (1.2-6.7); Basophils % 0.6; Eosinophils % 1.9; HGB 12.6 g/dL (11.2-15.7); Immature Grans % 0.2; Lymphocytes % 29.8; MCH 30.6 pg (27.0-33.0); MCHC 33.2 % (32.0-36.0); MCV 92 fL (80-95); MPV 12.6 fL (8.0-11.0); Monocytes % 7.7; Neutrophils % 59.8; Platelet Count 205 10^3/uL (130-400); RBC 4.12 10^6/uL (3.93-5.22); RDW 14.2 % (11.7-14.6); RDW-SD 47.8 fL; WBC 5.33 10^3/uL (4.4-10.8)
[2022-06-18 09:13] LABS: ESR 20 mm/hr (0-30)
== END 2022-06-18 08:56 | disposition home or self-care (01) ==
LOC: LBN 08:55
PROVIDERS: Visit Provider Family Medicine
DX: M15.0 Primary generalized (osteo)arthritis (principal); I25.10 Atherosclerotic heart disease of native coronary artery without angina pectoris; I48.0 Paroxysmal atrial fibrillation
CPT/HCPCS: 80053; 85652; 85025; 86140

== ENCOUNTER 2022-09-16 16:01 | Outpatient (CLI) | payer MEDICAID, SELFPAY ==
--- NOTE | 2022-09-16 15:00 | DI.RAD_ITS ---
Exam(s) XR ANKLE RT COMPLETE EXAM: XR ANKLE RT COMPLETE CLINICAL HISTORY: FALL, RT ANKLE PAIN. TECHNIQUE: 2D digital imaging was performed. COMPARISON: No exams were available for comparison FINDINGS: 3 views No evidence acute fracture or widening ankle mortise. Talar dome unremarkable. No osseous tarsal co alition. Mild generalized osteopenia noted. IMPRESSION: No acute fracture evident. DATA REPOSITORY: RADIATION DOSE DELIVERED:
== END 2022-09-16 16:21 ==
PROVIDERS: Visit Provider Family Medicine
DX: M25.571 Pain in right ankle and joints of right foot (principal)
CPT/HCPCS: 73610

== ENCOUNTER 2022-11-10 17:17 | Outpatient (REF) | payer MEDICAID, SELFPAY ==
[2022-11-10 18:10] LABS: Bilirubin Negative (Negative); Blood Negative (Negative); Clarity Clear (Clear); Glucose Negative (Negative); Ketones Negative (Negative); Leukocyte Esterase Negative (Negative); Nitrite Negative (Negative)
== END 2022-11-10 17:18 | disposition home or self-care (01) ==
LOC: LBN 17:17
PROVIDERS: Visit Provider Physician Assistant
DX: R39.9 Unspecified symptoms and signs involving the genitourinary system (principal)
CPT/HCPCS: 81003

== ENCOUNTER 2022-11-11 07:12 | Outpatient (REF) | payer MEDICAID, SELFPAY ==
[2022-11-11 09:51] LABS: Calculated LDL 84 mg/dL (<100); Cholesterol 154 mg/dL (<200); HDL Cholesterol 51 mg/dL (40-60); Triglyceride 99 mg/dL (<150)
== END 2022-11-11 07:13 | disposition home or self-care (01) ==
LOC: LBN 07:12
PROVIDERS: Visit Provider Family Medicine
DX: I25.10 Atherosclerotic heart disease of native coronary artery without angina pectoris (principal); E78.5 Hyperlipidemia, unspecified
CPT/HCPCS: 80061

== ENCOUNTER 2023-01-19 13:57 | Outpatient (REF) | payer MEDICAID, SELFPAY ==
[2023-01-19 13:37] LABS: Abs Immature Grans 0.01 10^3/uL (0.0-0.06); Absolute Basophil Count 0.03 10^3/uL (0.0-0.2); Absolute Eosinophil Count 0.08 10^3/uL (0.0-0.7); Absolute Monocyte Count 0.46 10^3/uL (0.1-0.8); Absolute Neutrophil Count 2.61 10^3/uL (1.2-6.7); Basophils % 0.6; Eosinophils % 1.6; HCT 38.9 % (36.0-46.0); HGB 12.9 g/dL (11.2-15.7); Immature Grans % 0.2; Lymphocytes % 37.3; MCH 30.4 pg (27.0-33.0); MCHC 33.2 % (32.0-36.0); MCV 92 fL (80-95); MPV 11.9 fL (8.0-11.0); Neutrophils % 51.3; Platelet Count 203 10^3/uL (130-400); RBC 4.25 10^6/uL (3.93-5.22); RDW-SD 46.8 fL; WBC 5.09 10^3/uL (4.4-10.8)
[2023-01-19 14:19] LABS: ALT 22 U/L (14-59); AST 16 U/L (15-37); Alkaline Phosphatase 98 U/L (46-116); Anion Gap 9.1 mmol/L (3-11); BUN 20 mg/dL (7-18); Bilirubin, Total 0.4 mg/dL (0.2-1.0); CO2 24.9 mmol/L (21.0-32.0); Calcium 9.5 mg/dL (8.5-10.1); Chloride 108 mmol/L (98-107); Glucose 94 mg/dL (74-106); Potassium 4.2 mmol/L (3.5-5.1); Sodium 142 mmol/L (136-145); TSH 2.67 uIU/mL (0.36-3.74); Total Protein 7.6 g/dL (6.4-8.2); Uric Acid 4.8 mg/dL (2.6-6.0)
== END 2023-01-19 13:58 | disposition home or self-care (01) ==
LOC: LBN 13:57
PROVIDERS: Visit Provider Physician Assistant
DX: I48.0 Paroxysmal atrial fibrillation (principal); I50.9 Heart failure, unspecified; F41.8 Other specified anxiety disorders; I10 Essential (primary) hypertension; G89.29 Other chronic pain
CPT/HCPCS: 80053; 84443; 84550; 85025

== ENCOUNTER 2023-02-17 12:47 | Outpatient (REF) | payer MEDICAID, SELFPAY ==
[2023-02-17 13:22] LABS: HCT 36.7 % (36.0-46.0); HGB 12.6 g/dL (11.2-15.7); MCHC 34.3 % (32.0-36.0); MCV 90 fL (80-95); MPV 11.6 fL (8.0-11.0); Platelet Count 197 10^3/uL (130-400); RBC 4.07 10^6/uL (3.93-5.22); RDW 13.6 % (11.7-14.6); RDW-SD 44.4 fL; WBC 5.45 10^3/uL (4.4-10.8)
[2023-02-17 13:49] LABS: ALT 16 U/L (14-59); AST 12 U/L (15-37); Alkaline Phosphatase 96 U/L (46-116); Anion Gap 10.9 mmol/L (3-11); BUN 26 mg/dL (7-18); Bilirubin, Total 0.3 mg/dL (0.2-1.0); CO2 23.1 mmol/L (21.0-32.0); CREATININE 1.2 mg/dL (0.55-1.02); Calcium 9.7 mg/dL (8.5-10.1); Chloride 107 mmol/L (98-107); Estimated GFR 52.14 (mL/min/1.73m2); Glucose 107 mg/dL (74-106); Potassium 4.3 mmol/L (3.5-5.1); Sodium 141 mmol/L (136-145); TSH 1.85 uIU/mL (0.36-3.74); Total Protein 7.6 g/dL (6.4-8.2); Uric Acid 4.8 mg/dL (2.6-6.0)
== END 2023-02-17 12:48 | disposition home or self-care (01) ==
LOC: LBN 12:47
PROVIDERS: Visit Provider Family Medicine
DX: I61.9 Nontraumatic intracerebral hemorrhage, unspecified (principal); I25.10 Atherosclerotic heart disease of native coronary artery without angina pectoris; M1A.09X0 Idiopathic chronic gout, multiple sites, without tophus (tophi)
CPT/HCPCS: 80053; 85027; 84443; 84550

== ENCOUNTER 2023-05-13 14:53 | Outpatient (REF) | payer MEDICAID, SELFPAY ==
[2023-05-13 11:44] LABS: BUN 14 mg/dL (7-18); Calcium 9.9 mg/dL (8.5-10.1); Chloride 107 mmol/L (98-107); Glucose 87 mg/dL (74-106); Potassium 4.2 mmol/L (3.5-5.1); Sodium 140 mmol/L (136-145); Vitamin B12 362 pg/mL (193-986)
== END 2023-05-13 14:54 | disposition home or self-care (01) ==
LOC: LBN 14:53
PROVIDERS: PCP Family Medicine; Visit Provider Nurse Practitioner Adult Health
DX: M62.81 Muscle weakness (generalized) (principal); Z79.899 Other long term (current) drug therapy; R41.9 Unspecified symptoms and signs involving cognitive functions and awareness
CPT/HCPCS: 80048; 82607

== ENCOUNTER 2023-06-14 09:57 | Emergency (ER) | payer MEDICAID, SELFPAY ==
[2023-06-14] VITALS (54 sets, daily range): BP systolic 104–156; BP diastolic 64–117; PULSE 65–147; RESP 9–38; TEMP 36.6; O2SAT 94–100
--- NOTE | 2023-06-14 09:45 | RT.EKG_ITS ---
APPROVED REPORT Exam: Resting ECG Reason for Exam: chest pain Patient Location: E HR:129 bpm ECG Measurements Heart Rate 129 AXIS HI [id number] P [id number] QRSd 81 QRS 83 QT 364 T 9 QTc 534 Conclusion Atrial fibrillation...V-rate 100-155, irreg A-activity Prolonged QT interval...QTc >510mS
[2023-06-14] MEDS: dilTIAZem 25 MG/5 ML VIAL 10 MG IVP ×3 (10:22→13:22)
[2023-06-14 10:24] LABS: Abs Immature Grans 0.01 10^3/uL (0.0-0.06); Absolute Basophil Count 0.04 10^3/uL (0.0-0.2); Absolute Eosinophil Count 0.08 10^3/uL (0.0-0.7); Absolute Lymphocyte Count 2.27 10^3/uL (1.2-3.4); Absolute Monocyte Count 0.44 10^3/uL (0.1-0.8); Absolute Neutrophil Count 2.44 10^3/uL (1.2-6.7); Basophils % 0.8; Eosinophils % 1.5; HCT 42.7 % (36.0-46.0); HGB 14.4 g/dL (11.2-15.7); Immature Grans % 0.2; MCH 29.9 pg (27.0-33.0); MCHC 33.7 % (32.0-36.0); MCV 89 fL (80-95); MPV 11.4 fL (8.0-11.0); Monocytes % 8.3; Neutrophils % 46.2; Platelet Count 235 10^3/uL (130-400); RBC 4.82 10^6/uL (3.93-5.22); RDW 13.9 % (11.7-14.6); RDW-SD 44.5 fL; WBC 5.28 10^3/uL (4.4-10.8)
[2023-06-14] MEDS: MORPHine 4 MG/ML SYR IVP (10:44)
[2023-06-14 10:47] LABS: ALT 18 U/L (14-59); AST 15 U/L (15-37); Albumin 3.9 g/dL (3.4-5.0); Alkaline Phosphatase 97 U/L (46-116); Anion Gap 11.9 mmol/L (3-11); BUN 16 mg/dL (7-18); Bilirubin, Total 0.5 mg/dL (0.2-1.0); CO2 24.1 mmol/L (21.0-32.0); CREATININE 1.2 mg/dL (0.55-1.02); Calcium 9.7 mg/dL (8.5-10.1); Chloride 104 mmol/L (98-107); Estimated GFR 52.14 (mL/min/1.73m2); Glucose 101 mg/dL (74-106); NT-proBNP 586 pg/mL (<300); Potassium 3.8 mmol/L (3.5-5.1); Sodium 140 mmol/L (136-145); Total Protein 8.4 g/dL (6.4-8.2); Troponin I < 50 ng/L (< or =60)
[2023-06-14] MEDS: Metoprolol 5 MG/5 ML VIAL 2.5 MG IVP ×2 (10:47→11:31)
--- NOTE | 2023-06-14 10:52 | ED.GENADUL_ITS ---
HPI General Mode of arrival: EMS . Date/Time Provider Initiated Documentation: 06/14/23 10:10 . Limitations to Documentation: no limitations . Information obtained by: patient, family and RN notes reviewed . History of Present Illness 57 year old F presents to the emergency department with the chief complaint of Chest pain, shortness of breath, facial numbness, Patient started experiencing this unknown Patient did receive the following treatments prior to arrival, other (3 nitro) Related Data Home Medications Medication Instructions Recorded Confirmed magnesium oxide 400 mg PO BID 04/02/21 06/14/23 sertraline 25 mg tablet 50 mg PO DAILY 04/02/21 06/14/23 allopurinol 100 mg tablet 100 mg PO DAILY 04/17/21 06/14/23 apixaban 5 mg tablet (Eliquis) 5 mg PO BID #60 tabs 04/17/21 06/14/23 bisacodyl 10 mg rectal suppository 10 mg IN ONCE PRN 04/23/21 06/14/23 (Dulcolax (bisacodyl)) loperamide 2 mg tablet 2 mg PO Q6H PRN 04/23/21 06/14/23 magnesium hydroxide 400 mg/5 mL 30 ml PO DAILY PRN 04/23/21 06/14/23 oral suspension (Dulcolax (magnesium hydroxide)) sodium phosphates 19 gram-7 118 ml IN ONCE PRN 04/23/21 06/14/23 gram/118 mL enema (Fleet Enema) topiramate 100 mg tablet 100 mg PO BID 06/25/21 06/14/23 diltiazem HCl 60 mg tablet 60 mg PO BID 08/13/21 06/14/23 atorvastatin 80 mg tablet 40 mg PO QHS 11/21/21 06/14/23 carboxymethylcellulose sodium 1 % 2 drp ophthalmic (eye) BID PRN 11/21/21 06/14/23 eye drops (Artificial Tears (carboxymethylcellulose)) acetaminophen 650 mg rectal 650 mg IN Q4H PRN 03/25/22 06/14/23 suppository lorazepam 1 mg tablet 1 mg PO TID 03/25/22 06/14/23 sennosides 8.6 mg-docusate sodium 1 tab-cap PO DAILY 03/25/22 06/14/23 50 mg tablet gabapentin 300 mg capsule 300 mg PO TID 08/26/22 06/14/23 nitroglycerin 0.4 mg sublingual 0.4 mg sublingual Q5M PRN 08/26/22 06/14/23 tablet (Nitrostat) quetiapine 25 mg tablet (Seroquel) 25 mg PO BID 08/26/22 06/14/23 bismuth subsalicylate 262 mg/15 mL 524 mg PO Q8H PRN 04/29/23 06/14/23 oral suspension (Pepto-Bismol) cetirizine 10 mg tablet (All Day 10 mg PO DAILY PRN 04/29/23 06/14/23 Allergy (cetirizine)) guaifenesin 100 mg/5 mL oral liquid 200 mg PO Q4H PRN 04/29/23 06/14/23 famotidine 40 mg tablet 40 mg PO DAILY 06/14/23 06/14/23 Previous Rx's Medication Instructions Recorded apixaban 5 mg tablet (Eliquis) 5 mg PO BID #60 tabs 04/17/21 Allergies Allergy/AdvReac Type Severity Reaction Status Date / Time codeine Allergy Unknown Verified 06/14/23 10:55 Penicillins Allergy Unknown Verified 06/14/23 10:55 strawberry Allergy Unknown Verified 06/14/23 10:55 General Stated Complaint: Chest Pain FAINA: 2 Review of Systems Unobtainable due to mental condition (Difficult to obtain) Cardiovascular Cardiovascular: Reports as per HPI, Reports chest pain, Reports rapid heart rate and Reports dyspnea Respiratory Respiratory: Reports dyspnea Musculoskeletal Musculoskeletal: Reports numbness Neurologic Neurologic: Reports as per HPI and Reports numbness Exam Const General: cooperative and not ill appearing Orientation: alert and awake [facility] Head: atraumatic Ears: hearing grossly normal bilaterally and external ears normal General nose exam: external nose normal Eyes Alignment and Position: alignment abnormal bilateral Conjunctivae: conjunctivae normal Sclera: sclerae normal Pupils: PERRL Resp Effort & Inspection: normal respiratory effort Auscultation: clear to auscultation bilaterally Cardio Rate: tachycardic Rhythm: abnormal rhythm irregularly irregular Heart Sounds: S1 normal and S2 normal Neuro General: patient alert and patient awake Cranial Nerves: no nystagmus, tongue midline, hearing normal and able to rotate head bilaterally Speech: expressive aphasia and receptive aphasia Motor: strength abnormal right Course Vital Signs Vital signs: Vital Signs Temperature 36.6 C 06/14/23 09:55 Pulse 143 H 06/14/23 09:55 Respiratory Rate 13 06/14/23 09:55 Blood Pressure 148/108 H 06/14/23 09:55 Pulse Oximetry 94 06/14/23 09:55 Temperature 36.6 C 06/14/23 09:55 Temperature Source Temporal Artery Scan 06/14/23 09:55 Pulse 136 H 06/14/23 10:47 Respiratory Rate 13 06/14/23 09:55 Respiratory Effort Short of Breath 06/14/23 10:05 Blood Pressure 128/103 H 06/14/23 10:47 Blood Pressure Position Sitting 06/14/23 09:55 Pulse Oximetry 94 06/14/23 09:55 Oxygen Delivery Method Nasal Cannula 06/14/23 09:55 Oxygen Flow Rate 2 06/14/23 09:55 Pain Level 7 06/14/23 09:55 Lab/Test Results Lab/Test Results: Laboratory Tests Range/Units 06/14/23 10:15 WBC (4.4-10.8) 10^3/uL 5.28 RBC (3.93-5.22) 10^6/uL 4.82 Hgb (11.2-15.7) g/dL 14.4 Hct (36.0-46.0) % 42.7 MCV (80-95) fL 89 MCH (27.0-33.0) pg 29.9 MCHC (32.0-36.0) % 33.7 RDW (11.7-14.6) % 13.9 Plt Count (130-400) 10^3/uL 235 MPV (8.0-11.0) fL 11.4 H Immature Gran % 0.2 Neutrophils % 46.2 Lymphocytes % 43.0 Monocytes % 8.3 Eosinophils % 1.5 Basophils % 0.8 Nucleated RBC % (0.0-0.3) % 0.0 Absolute Neutrophils (1.2-6.7) 10^3/uL 2.44 Absolute Lymphocytes (1.2-3.4) 10^3/uL 2.27 Absolute Monocytes (0.1-0.8) 10^3/uL 0.44 Absolute Eosinophils (0.0-0.7) 10^3/uL 0.08 Absolute Basophils (0.0-0.2) 10^3/uL 0.04 Sodium (136-145) mmol/L 140 Potassium (3.5-5.1) mmol/L 3.8 Chloride (98-107) mmol/L 104 Carbon Dioxide (21.0-32.0) mmol/L 24.1 Anion Gap (3-11) mmol/L 11.9 H BUN (7-18) mg/dL 16 Creatinine (0.55-1.02) mg/dL 1.2 H Est GFR (CKD-EPI 2020) (mL/min/1.73m2) 52.14 Glucose (74-106) mg/dL 101 Calcium (8.5-10.1) mg/dL 9.7 Magnesium (1.8-2.4) mg/dL 2.0 Total Bilirubin (0.2-1.0) mg/dL 0.5 AST (15-37) U/L 15 ALT (14-59) U/L 18 Alkaline Phosphatase (46-116) U/L 97 Troponin I (< or =60) ng/L < 50 NT-Pro-B Natriuret Pep (<300) pg/mL 586 H Total Protein (6.4-8.2) g/dL 8.4 H Albumin (3.4-5.0) g/dL 3.9 Medical Decision Making Patient presenting to the emergency department for chief complaint of chest pain. Patient is at [facility] facility due to previous stroke with global aphasia. This does make a review of systems and history difficult. Patient was given 3 nitro by nursing facility and sent to the emergency department. Patient still complaining of chest pain but again review of systems is difficult and only obtained by facility staff. Patient says yes to all questioning including further asking about facial numbnesss. Patient does appear uncomfortable but shows no acute signs of respiratory distress, patient is hypertensive and tachycardic with irregular heart rhythm, there is right-sided facial droop and right upper and lower extremity weakness which is at baseline per sister/guardian who did arrive to the emergency department to assist. Will plan on doing EKG and blood work. Reviewing monitor patient does appear to be in A- fib with RVR. Sister is not fully aware of all of medical history beyond stroke. Patient given diltiazem push pending results Please see physician interpretation for full interpretation of EKG but upon my review patient is in A-fib with RVR and does have some prolonged QT otherwise nondiagnostic, no criteria to be acute STEMI. Review of labs show an overall unremarkable CBC no signs of severe anemia, CMP shows slightly elevated anion gap of 11.9 and creatinine 1.2 otherwise all other findings within normal range, troponin is negative and nondetected, BNP is 586. Was able to reviewed patient's medical records and patient is DNR/DNI, comfort measures predominantly, patient does have history of paroxysmal A-fib with nursing staff holding diltiazem this morning due to blood pressure systolic being 90 which indications to hold were if blood pressure was less than 85. Patient required multiple doses of push metoprolol and diltiazem that was able to finally control heart rate. Did give patient total of 90 mg of diltiazem orally on top of multiple push doses. During monitoring period to ensure that heart rate remained at acceptable range, patient along with patient's guardian requested to be discharged back to nursing facility. Delta troponin is negative. Patient is up and ambulatory, stating that she feels better, and denying any chest pain. Again I do acknowledge that she is not a trustworthy source given her significant aphasia at the same time the sister/guardian also is requesting discharge at this time which over the last 30 minutes her heart rate has been below 100 and stable vital signs otherwise. Patient discharged back to nursing facility with return and follow-up precautions discussed. Do feel that patient's initial complaint was due to her diltiazem being held causing her A-fib to increase which I do feel caused her chest pain along with the bumped BNP. after discussion of diagnosis and plan of care guardian has no further needs, questions, or concerns and states clear understanding to return to the emergency department for any worsening symptoms. This documentation was generated using [employer] dictation system, please disregard any oddities of phrase or misspellings. Medical Records Medical records reviewed: Yes I reviewed the patient's medical records. Imaging Data Radiologic Study: Imaging: CT Scan Radiologist's impression: Exam(s) PROCEDURE INFORMATION: Exam: CT Head Without Contrast Exam date and time: 06/14/2023 11:55 AM Age: 57 years old Clinical indication: Other: Facial numbness TECHNIQUE: Imaging protocol: Computed tomography of the head without contrast. COMPARISON: CT HEAD WO 10/17/2021 5:07 PM FINDINGS: Brain: There stable old infarction in left hemisphere in the middle cerebral artery distribution involving the frontal, parietal temporal lobes, insula and left basal ganglia. There is wallerian degeneration in the left side of the brainstem . There is ex vacuo dilatation of the left lateral ventricle, otherwise ventricles and sulci mildly prominent to parenchymal volume loss. There is extra-axial collection. Real-white matter differentiation is within normal limits. There is no intracranial hemorrhage. There are minimal nonspecific patchy foci of periventricular white hypodensity which may represent chronic small vessel ischemic changes. Cerebral ventricles: Ventricles are nondilated. Paranasal sinuses: Visualized sinuses are unremarkable. No fluid levels. Mastoid air cells: Visualized mastoid air cells are well aerated. Bones/joints: Unremarkable. No acute fracture. Soft tissues: Unremarkable. IMPRESSION: 1. No acute intracranial abnormalities. 2. Stable old infarct in the left middle cerebral artery distribution. Radiologic Study #2: Imaging: CT Scan Radiologist's impression: Exam(s) PROCEDURE INFORMATION: Exam: CTA Chest With Contrast Exam date and time: 06/14/2023 12:01 PM Age: 57 years old Clinical indication: Other: Chest pain. SOB TECHNIQUE: Imaging protocol: Computed tomographic angiography of the chest with contrast. Exam focused on the arteries. 3D rendering (Not supervised by radiologist): MIP and/or 3D reconstructed images were created by the technologist. Contrast material: OMNI 350; Contrast volume: 100 ml; Contrast route: INTRAVENOUS (IV); COMPARISON: CT CHEST PE ABD PELVIS W 10/06/2020 11:08 PM FINDINGS: Pulmonary arteries: No evidence of pulmonary embolus to the segmental level. Aorta: No aneurysm of the aorta. No dissection of the aorta. Lungs: Unremarkable. No consolidation. No masses. Pleural spaces: Unremarkable. No pneumothorax. No pleural effusion. Heart: Cardiomegaly Coronary arteries: Coronary artery calcifications may indicate coronary artery disease. Lymph nodes: Unremarkable. No enlarged lymph nodes. Gallbladder and bile ducts: Cholecystectomy Bones/joints: Unremarkable. No acute fracture. Soft tissues: Unremarkable. IMPRESSION: 1. No evidence of pulmonary embolus to the segmental level. 2. No aneurysm of the aorta. 3. No dissection of the aorta. Lab Data Lab results reviewed: Yes I reviewed the patient's lab results. Quality:SDOH Health Related Social Needs: No Data to Display Critical Care Time Critical Care Time Critical Care Time: Yes Total Critical Care Time: 45 Attestation: Due to A-fib with RVR with high probability of imminent or life threatening deterioration in the patient?s condition without intervention and treatment. Time spent documenting, reviewing labs and radiographs, monitoring titration/ Vital signs, and speaking with sister/guardian. PFSH All Active Problems (Updated 06/14/23 @ 15:48 by Cal Blair NP) Paroxysmal atrial fibrillation with RVR (Acute) Depression (Chronic) Osteoarthritis of right shoulder (Acute) Bursitis of right shoulder (Acute) Adhesive capsulitis of right shoulder (Acute) Migraine headache with aura (Acute) Chronic headache (Acute) Spell of altered cognition (Acute) AMS (altered mental status) (Acute) Heart failure (Acute) Medical History Sudden cardiac arrest Afib Atherosclerotic heart disease of [place] coronary artery without angina pectoris Other symptoms and signs involving cognitive functions and awareness Abnormality of gait and mobility Lack of coordination Receptive expressive language disorder Nontraumatic intracerebral hemorrhage Major depressive disorder Right shoulder pain Osteoarthritis Restlessness and agitation Anxiety Idiopathic gout Muscle weakness COVID-19 Dysphagia Seizures Hemiplegia and hemiparesis following cerebral infarction affecting right dominant side Gout Migraine headache without aura Paroxysmal A-fib Pulmonary HTN CVA (cerebral vascular accident) 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/05/20, aphasia, dysphasia, Respiratory arrest before cardiac arrest Surgical History S/P cholecystectomy Social History Smoking/Tobacco Use Status: Never Smoking risk assessment performed?: Yes Alcohol Intake: never Substance use type: does not use Housing: assisted living facility Current gender identity: female Do you feel safe at home: Yes Discharge Plan Disposition Patient Disposition: Senior Care Facility(SNF) Condition: Improving Discharge Details Clinical Impression: Paroxysmal atrial fibrillation with RVR Primary Care Provider: Neftaly Loredo ED Provider: Cal Blair Home Meds and New Rx's Prescriptions: Continued atorvastatin 80 mg tablet 40 mg PO QHS gabapentin 300 mg capsule 300 mg PO TID sertraline 25 mg tablet 50 mg PO DAILY magnesium oxide 400 mg magnesium capsule 400 mg PO BID topiramate 100 mg tablet 100 mg PO BID diltiazem HCl 60 mg tablet 60 mg PO BID nitroglycerin [Nitrostat] 0.4 mg tablet, sublingual 0.4 mg sublingual Q5M PRN Rx Instructions: do not exceed 3 doses per episode quetiapine [Seroquel] 25 mg tablet 25 mg PO BID bisacodyl [Dulcolax (bisacodyl)] 10 mg suppository 10 mg IN ONCE PRN Rx Instructions: after MOM is administered Fleet Enema 19-7 gram/118 mL enema 118 ml IN ONCE PRN Rx Instructions: After MOM and suppository have been administered without results. loperamide 2 mg tablet 2 mg PO Q6H PRN magnesium hydroxide [Dulcolax (magnesium hydroxide)] 400 mg/5 mL suspension 30 ml PO DAILY PRN Artificial Tears (cmc) 1 % drops 2 drp ophthalmic (eye) BID PRN sennosides-docusate sodium 8.6-50 mg tablet 1 tab-cap PO DAILY acetaminophen 650 mg suppository 650 mg IN Q4H PRN lorazepam 1 mg tablet 1 mg PO TID cetirizine [All Day Allergy (cetirizine)] 10 mg tablet 10 mg PO DAILY PRN guaifenesin 100 mg/5 mL liquid 200 mg PO Q4H PRN bismuth subsalicylate [Pepto-Bismol] 262 mg/15 mL suspension 524 mg PO Q8H PRN Rx Instructions: do not exceed 8 doses in a 24 hour period allopurinol 100 mg Tablet 100 mg PO DAILY Eliquis 5 mg tablet 5 mg PO BID Qty: 60 0RF famotidine 40 mg tablet 40 mg PO DAILY Discharge Instructions Instructions: A-fib (Atrial Fibrillation) (ED) Additional Instructions: It is very important that patient received prescribed medications especially her diltiazem as I feel this is a contributing component of her chest pain and discomfort this morning. Please only hold this medication if systolic blood pressure is less than 85 and pulse less than 60. Please have patient return to the emergency department for any new or significant worsening symptoms otherwise will be very important for her to follow-up with her primary care provider or rehab provider for any further med adjustments. Referrals: Neftaly Loredo [Primary Care Provider] - 2 days (For recheck meds and heart rate) Discharge Data Discharge Date/Time-TO BE ENTERED AT DEPARTURE: 02/04/24 15:55
[2023-06-14] MEDS: Normal Saline - Diluent 50 ML VIAL IJ (12:07)
[2023-06-14] MEDS: Omnipaque 350 MG/ML 100 ML BTL IJ (12:07)
--- NOTE | 2023-06-14 12:11 | DI.CT_ITS ---
Exam(s) CT CHEST PE CTA EXAM: CT CHEST PE CTA CLINICAL HISTORY: chest pain. SOB. TECHNIQUE: Imaging Protocol: CT angiography of the chest was performed using pulmonary embolus mliton col. Multi planar reconstructions were performed. CONTRAST MATERIAL: Intravenous: Omnipaque 350 Contrast volume: 100 cc COMPARISON: CT CT ABDOMEN PELVIS W from 04/17/2022 FINDINGS: CHEST: PULMONARY ARTERIES: There are no intraluminal filling defects to suggest acute pulmonary emboli. LUNGS: There are no infiltrates nor evidence of pulmonary infarction.. There are no pleural effusions . MEDIASTINUM: There is no hilar nor mediastinal adenopathy. Visualized thyroid unremarkable. CARDIAC: Mild cardiomegaly.There is a small pericardial effusion on the left side of the pericardium. Caliber of the thoracic aorta is within normal limits.. Coronary artery calcifications noted. The re is no significant shift of the interventricular septum. PARTIALLY VISUALIZED UPPERMOST ABDOMEN: No significant adrenal masses. Gallbladder surgically absent . No splenomegaly. OSSEOUS: No significant osseous lesions.No fractures.. IMPRESSION: 1. No evidence of acute pulmonary emboli. No evidence of pulmonary infarction.No pleural effusions. 2. Mild cardiomegaly. Small pericardial effusion. RADIATION DOSE DELIVERED: 493.49mGy.cm Total DLP DATA REPOSITORY: All CT scans at this facility are submitted to the National Radiology Data Registry (NRDR) Dose Index Registry (DIR) with the [employer] (ACR). RADIATION OPTIMIZATION: All CT scans at this facility use at least one of these dose optimization te chniques: automated exposure control; mA and/or kV adjustment per patient size (includes targeted exa ms where dose is matched to clinical indication); or iterative reconstruction.
--- NOTE | 2023-06-14 12:11 | DI.CT_ITS ---
Exam(s) CT HEAD WO EXAM: CT HEAD WO CLINICAL HISTORY: facial numbness. TECHNIQUE: Imaging Protocol: Axial computed tomography images with coronal and sagittal reformatted images were created and reviewed COMPARISON: CT CT HEAD WO from 10/17/2021 FINDINGS: There are no skull fractures. There is no fluid in the visualized paranasal sinuses. There is no evidence of intracranial hemorrhage, new mass effect, or shift of midline structures. Th ere are no extra-axial fluid collections. Large area of encephalomalacia on the left side is again noted in the territory of the left middle ce rebral artery of the left temporoparietal lobes, similar to previous and again noted to be associated with some ex vacuo dilatation of the left lateral ventricle. No new areas of infarct evident eviden t. IMPRESSION: No acute intracranial findings on this noninfused CT scan of the brain. Evidence of large prior infarct in the territory of the left middle cerebral artery again noted, unch anged from October 2021 CT scan. RADIATION DOSE DELIVERED: 738.02mGy.cm Total DLP DATA REPOSITORY: All CT scans at this facility are submitted to the National Radiology Data Registry (NRDR) Dose Index Registry (DIR) with the [employer] (ACR). RADIATION OPTIMIZATION: All CT scans at this facility use at least one of these dose optimization te chniques: automated exposure control; mA and/or kV adjustment per patient size (includes targeted exa ms where dose is matched to clinical indication); or iterative reconstruction.
--- NOTE | 2023-06-14 12:21 | DI.VRAD_ITS ---
PROCEDURE INFORMATION: Exam: CT Head Without Contrast Exam date and time: 06/14/2023 11:55 AM Age: 57 years old Clinical indication: Other: Facial numbness TECHNIQUE: Imaging protocol: Computed tomography of the head without contrast. COMPARISON: CT HEAD WO 10/17/2021 5:07 PM FINDINGS: Brain: There stable old infarction in left hemisphere in the middle cerebral artery distribution involving the frontal, parietal temporal lobes, insula and left basal ganglia. There is wallerian degeneration in the left side of the brainstem . There is ex vacuo dilatation of the left lateral ventricle, otherwise ventricles and sulci mildly prominent to parenchymal volume loss. There is extra-axial collection. Real-white matter differentiation is within normal limits. There is no intracranial hemorrhage. There are minimal nonspecific patchy foci of periventricular white hypodensity which may represent chronic small vessel ischemic changes. Cerebral ventricles: Ventricles are nondilated. Paranasal sinuses: Visualized sinuses are unremarkable. No fluid levels. Mastoid air cells: Visualized mastoid air cells are well aerated. Bones/joints: Unremarkable. No acute fracture. Soft tissues: Unremarkable. IMPRESSION: 1. No acute intracranial abnormalities. 2. Stable old infarct in the left middle cerebral artery distribution. Dictated and Authenticated by: Roscoe Hassan MD. Ordering:BOOGIE Mccall MD
--- NOTE | 2023-06-14 12:36 | DI.VRAD_ITS ---
PROCEDURE INFORMATION: Exam: CTA Chest With Contrast Exam date and time: 06/14/2023 12:01 PM Age: 57 years old Clinical indication: Other: Chest pain. SOB TECHNIQUE: Imaging protocol: Computed tomographic angiography of the chest with contrast. Exam focused on the arteries. 3D rendering (Not supervised by radiologist): MIP and/or 3D reconstructed images were created by the technologist. Contrast material: OMNI 350; Contrast volume: 100 ml; Contrast route: INTRAVENOUS (IV); COMPARISON: CT CHEST PE ABD PELVIS W 10/06/2020 11:08 PM FINDINGS: Pulmonary arteries: No evidence of pulmonary embolus to the segmental level. Aorta: No aneurysm of the aorta. No dissection of the aorta. Lungs: Unremarkable. No consolidation. No masses. Pleural spaces: Unremarkable. No pneumothorax. No pleural effusion. Heart: Cardiomegaly Coronary arteries: Coronary artery calcifications may indicate coronary artery disease. Lymph nodes: Unremarkable. No enlarged lymph nodes. Gallbladder and bile ducts: Cholecystectomy Bones/joints: Unremarkable. No acute fracture. Soft tissues: Unremarkable. IMPRESSION: 1. No evidence of pulmonary embolus to the segmental level. 2. No aneurysm of the aorta. 3. No dissection of the aorta. Dictated and Authenticated by: Shea Jaime MD. Ordering:BOOGIE Mccall MD
[2023-06-14] MEDS: dilTIAZem 30 MG TAB 60 MG PO (13:23)
[2023-06-14 13:53] LABS: Troponin I < 50 ng/L (< or =60)
[2023-06-14] MEDS: dilTIAZem 30 MG TAB PO (14:59)
[2023-06-14] MEDS: LORazepam 1 MG TAB PO (15:00)
== END 2023-06-14 15:55 | disposition skilled nursing facility (03) ==
PROVIDERS: Emergency Provider Nurse Practitioner Family; PCP Family Medicine
DX: I48.0 Paroxysmal atrial fibrillation (principal); I10 Essential (primary) hypertension; I25.10 Atherosclerotic heart disease of native coronary artery without angina pectoris; I69.351 Hemiplegia and hemiparesis following cerebral infarction affecting right dominant side; I69.320 Aphasia following cerebral infarction; Z86.74 Personal history of sudden cardiac arrest; Z79.01 Long term (current) use of anticoagulants
CPT/HCPCS: 71275; 80053; 93005; 96374; 96375; 96376; 99285; 70450; 83735; 83880; 84484; 85025; 93010; 99284; J2270; J3490

== ENCOUNTER 2023-08-19 15:57 | Outpatient (REF) | payer MEDICAID, SELFPAY ==
[2023-08-19 17:18] LABS: Magnesium 2.1 mg/dL (1.8-2.4)
== END 2023-08-19 15:58 | disposition home or self-care (01) ==
LOC: LBN 15:57
PROVIDERS: PCP Family Medicine; Visit Provider Family Medicine
DX: I25.10 Atherosclerotic heart disease of native coronary artery without angina pectoris (principal); M62.81 Muscle weakness (generalized)
CPT/HCPCS: 83735

== ENCOUNTER 2023-12-04 22:35 | Outpatient (REF) | payer MEDICAID, SELFPAY ==
[2023-12-04 20:30] LABS: Abs Immature Grans 0.05 10^3/uL (0.0-0.06); Absolute Basophil Count 0.03 10^3/uL (0.0-0.2); Absolute Eosinophil Count 0.06 10^3/uL (0.0-0.7); Absolute Lymphocyte Count 1.62 10^3/uL (1.2-3.4); Absolute Monocyte Count 0.62 10^3/uL (0.1-0.8); Absolute Neutrophil Count 7.54 10^3/uL (1.2-6.7); Basophils % 0.3 %; Eosinophils % 0.6 %; HCT 39.8 % (36.0-46.0); HGB 13.1 g/dL (11.2-15.7); Immature Grans % 0.5 %; Lymphocytes % 16.3 %; MCH 29.6 pg (27.0-33.0); MCHC 32.9 % (32.0-36.0); MCV 90 fL (80-95); MPV 12.1 fL (8.0-11.0); Monocytes % 6.3 %; Platelet Count 193 10^3/uL (130-400); RBC 4.42 10^6/uL (3.93-5.22); RDW 13.7 % (11.7-14.6); RDW-SD 45.2 fL; WBC 9.92 10^3/uL (4.4-10.8)
[2023-12-04 20:35] LABS: Anion Gap 10.8 mmol/L (3-11); BUN 15 mg/dL (7-18); CO2 22.2 mmol/L (21.0-32.0); CREATININE 1.1 mg/dL (0.55-1.02); Calcium 9.1 mg/dL (8.5-10.1); Chloride 109 mmol/L (98-107); Estimated GFR 57.52 (mL/min/1.73m2); Glucose 116 mg/dL (74-106); Sodium 142 mmol/L (136-145)
[2023-12-04 23:15] LABS: Bilirubin Negative (Negative); Blood Negative (Negative); Clarity Sl Cloudy (Clear); Glucose Negative (Negative); Ketones Negative (Negative); Leukocyte Esterase Small (Negative); Nitrite Negative (Negative); Specific Gravity 1.015 (1.005-1.025); Urobilinogen 0.2 mg/dL (Up to 0.2)
[2023-12-04 23:32] LABS: Bacteria Few HPF (Negative); C & S Indicated? C&S Done As Ordered; Crystals Negative HPF (Negative); Epithelial Cells Many HPF (Negative); Mucus Trace (Negative); RBC 0-2 HPF (0-2)
== END 2023-12-04 22:36 | disposition home or self-care (01) ==
LOC: LBN 22:35
PROVIDERS: PCP Family Medicine; Visit Provider Nurse Practitioner Family
DX: I48.91 Unspecified atrial fibrillation (principal); R51.9 Headache, unspecified; R41.89 Other symptoms and signs involving cognitive functions and awareness; F41.8 Other specified anxiety disorders; R82.998 Other abnormal findings in urine
CPT/HCPCS: 80048; 81003; 81015; 85025; 87086

== ENCOUNTER 2023-12-15 18:26 | Outpatient (REF) | payer MEDICAID, SELFPAY ==
[2023-12-15 13:56] LABS: Anion Gap 10.4 mmol/L (3-11); BUN 26 mg/dL (7-18); CO2 23.6 mmol/L (21.0-32.0); Calcium 9.7 mg/dL (8.5-10.1); Chloride 109 mmol/L (98-107); Estimated GFR 64.49 (mL/min/1.73m2); Glucose 112 mg/dL (74-106); Potassium 4.7 mmol/L (3.5-5.1); Sodium 143 mmol/L (136-145)
== END 2023-12-15 18:27 | disposition home or self-care (01) ==
LOC: LBN 18:26
PROVIDERS: PCP Family Medicine; Visit Provider Family Medicine
DX: R68.89 Other general symptoms and signs (principal)
CPT/HCPCS: 80048

== ENCOUNTER 2024-02-29 20:36 | Outpatient (REF) | payer MEDICAID, SELFPAY ==
[2024-02-29 13:36] LABS: Abs Immature Grans 0.02 10^3/uL (0.0-0.06); Absolute Basophil Count 0.05 10^3/uL (0.0-0.2); Absolute Eosinophil Count 0.21 10^3/uL (0.0-0.7); Absolute Lymphocyte Count 2.03 10^3/uL (1.2-3.4); Absolute Monocyte Count 0.58 10^3/uL (0.1-0.8); Basophils % 0.8 %; Eosinophils % 3.5 %; HCT 41.4 % (36.0-46.0); HGB 13.5 g/dL (11.2-15.7); Immature Grans % 0.3 %; Lymphocytes % 33.9 %; MCH 29.9 pg (27.0-33.0); MCHC 32.6 % (32.0-36.0); MCV 92 fL (80-95); MPV 12.5 fL (8.0-11.0); Monocytes % 9.7 %; Neutrophils % 51.8 %; Platelet Count 244 10^3/uL (130-400); RBC 4.51 10^6/uL (3.93-5.22); RDW 14.6 % (11.7-14.6); RDW-SD 48.8 fL; WBC 5.99 10^3/uL (4.4-10.8)
[2024-02-29 13:58] LABS: ALT 17 U/L (14-59); AST 17 U/L (15-37); Alkaline Phosphatase 108 U/L (46-116); Anion Gap 13.2 mmol/L (3-11); BUN 20 mg/dL (7-18); Bilirubin, Total 0.55 mg/dL (0.2-1.0); CO2 19.8 mmol/L (21.0-32.0); Calcium 9.6 mg/dL (8.5-10.1); Chloride 109 mmol/L (98-107); Estimated GFR 64.49 (mL/min/1.73m2); Glucose 111 mg/dL (74-106); Potassium 4.3 mmol/L (3.5-5.1); Sodium 142 mmol/L (136-145); TSH 2.96 uIU/mL (0.36-3.74); Total Protein 7.8 g/dL (6.4-8.2); Uric Acid 4.4 mg/dL (2.6-6.0)
== END 2024-02-29 20:37 | disposition home or self-care (01) ==
LOC: LBN 20:36
PROVIDERS: PCP Family Medicine; Visit Provider Family Medicine
DX: M62.81 Muscle weakness (generalized) (principal)
CPT/HCPCS: 80053; 84443; 84550; 85025

== ENCOUNTER 2024-08-29 16:41 | Outpatient (REF) | payer MEDICAID, SELFPAY ==
[2024-08-29 17:44] LABS: Abs Immature Grans 0.02 10^3/uL (0.0-0.06); Absolute Basophil Count 0.02 10^3/uL (0.0-0.2); Absolute Eosinophil Count 0.11 10^3/uL (0.0-0.7); Absolute Lymphocyte Count 1.79 10^3/uL (1.2-3.4); Absolute Neutrophil Count 2.35 10^3/uL (1.2-6.7); Basophils % 0.4 %; Eosinophils % 2.3 %; HCT 38.9 % (36.0-46.0); HGB 12.3 g/dL (11.2-15.7); Immature Grans % 0.4 %; Lymphocytes % 38.2 %; MCH 28.7 pg (27.0-33.0); MCHC 31.6 % (32.0-36.0); MCV 91 fL (80-95); MPV 11.9 fL (8.0-11.0); Monocytes % 8.5 %; Neutrophils % 50.2 %; Platelet Count 217 10^3/uL (130-400); RBC 4.29 10^6/uL (3.93-5.22); RDW 14.6 % (11.7-14.6); RDW-SD 48.4 fL; WBC 4.69 10^3/uL (4.4-10.8)
[2024-08-29 18:07] LABS: ALT 19 U/L (14-59); AST 15 U/L (15-37); Albumin 4.2 g/dL (3.4-5.0); Alkaline Phosphatase 93 U/L (46-116); Anion Gap 7.3 mmol/L (3-11); BUN 14 mg/dL (7-18); Bilirubin, Total 0.4 mg/dL (0.2-1.0); CO2 27.7 mmol/L (21.0-32.0); CREATININE 1.2 mg/dL (0.55-1.02); Calcium 9.3 mg/dL (8.5-10.1); Chloride 107 mmol/L (98-107); Estimated GFR 51.82 (mL/min/1.73m2); Glucose 127 mg/dL (74-106); Potassium 4.5 mmol/L (3.5-5.1); Sodium 142 mmol/L (136-145); TSH 3.32 uIU/mL (0.36-3.74); Uric Acid 4.8 mg/dL (2.6-6.0)
== END 2024-08-29 16:42 | disposition home or self-care (01) ==
LOC: LBN 16:41
PROVIDERS: PCP Family Medicine; Visit Provider Nurse Practitioner Gerontology
DX: G40.89 Other seizures (principal); R13.12 Dysphagia, oropharyngeal phase
CPT/HCPCS: 80053; 84443; 84550; 85025

== ENCOUNTER 2024-12-23 17:05 | Outpatient (REF) | payer MEDICAID, SELFPAY ==
[2024-12-23 11:47] LABS: Abs Immature Grans 0.01 10^3/uL (0.0-0.06); HCT 38.6 % (36.0-46.0); HGB 12.2 g/dL (11.2-15.7); Immature Grans % 0.2 %; MCH 28.4 pg (27.0-33.0); MCHC 31.6 % (32.0-36.0); MCV 90 fL (80-95); MPV 11.4 fL (8.0-11.0); Platelet Count 218 10^3/uL (130-400); RBC 4.30 10^6/uL (3.93-5.22); RDW 14.9 % (11.7-14.6); RDW-SD 49.2 fL; WBC 5.00 10^3/uL (4.4-10.8)
[2024-12-23 11:57] LABS: ALT 35 U/L (14-59); AST 30 U/L (15-37); Albumin 3.9 g/dL (3.4-5.0); Alkaline Phosphatase 101 U/L (46-116); Anion Gap 7.5 mmol/L (3-11); BUN 24 mg/dL (7-18); Bilirubin, Total 0.5 mg/dL (0.2-1.0); CO2 29.5 mmol/L (21.0-32.0); Calcium 9.4 mg/dL (8.5-10.1); Chloride 103 mmol/L (98-107); Estimated GFR 57.17 (mL/min/1.73m2); Glucose 104 mg/dL (74-106); Potassium 4.7 mmol/L (3.5-5.1); Sodium 140 mmol/L (136-145); TSH 2.27 uIU/mL (0.36-3.74); Total Protein 7.7 g/dL (6.4-8.2); Uric Acid 5.7 mg/dL (2.6-6.0)
== END 2024-12-23 17:06 | disposition home or self-care (01) ==
LOC: LBN 17:05
PROVIDERS: PCP Family Medicine; Visit Provider Family Medicine
DX: I25.10 Atherosclerotic heart disease of native coronary artery without angina pectoris (principal)
CPT/HCPCS: 80053; 84443; 84550; 85025

== ENCOUNTER 2025-03-18 17:27 | Inpatient (IN) | payer SELFPAY ==
[2025-03-18] VITALS (47 sets, daily range): BP systolic 88–137; BP diastolic 55–90; PULSE 74–145; RESP 17–43; TEMP 36–39.1; O2SAT 88–96
--- NOTE | 2025-03-18 17:30 | RT.EKG_ITS ---
APPROVED REPORT Exam: Resting ECG Reason for Exam: sob Patient Location: E HR:121 bpm ECG Measurements Heart Rate 121 AXIS [place] [id number] P [id number] QRSd 148 QRS 97 QT 363 T -28 QTc 515 Conclusion Atrial fibrillation...? atrial activity RBBB and LPFB...QRSd >120mS, axis(90,210)
--- NOTE | 2025-03-18 17:30 | DI.RAD_ITS ---
Exam(s) XR PORTABLE CHEST AP EXAM: XR PORTABLE CHEST AP CLINICAL HISTORY: dyspnea TECHNIQUE: 2D digital imaging was performed of the chest. One image was obtained. An AP view was obtained. COMPARISON: CR,XR XR CHEST 2V PA LATERAL from 10/17/2021 FINDINGS: MEDIASTINUM: Normal. HEART: Cardiomegaly. PULMONARY VASCULATURE: There is pulmonary venous congestion. LUNGS: Diffuse interstitial infiltrates are present bilaterally. There is linear atelectasis seen in the mid lungs bilaterally. PLEURAL SPACE: No pleural effusion or pneumothorax. BONE:Within normal limits for the patient's age. OTHER FINDINGS:Normal. IMPRESSION: 1. Cardiomegaly and pulmonary venous congestion suggesting fluid overload/congestive heart failure. 2. Bilateral diffuse interstitial infiltrates which may represent pulmonary edema. An interstitial pneumonia cannot be excluded. Please correlate clinically. DATA REPOSITORY: RADIATION DOSE DELIVERED:
--- NOTE | 2025-03-18 17:42 | W.ED.GENAD ---
Discharge Plan Disposition Patient Disposition: Admit to [facility] Condition: Stable Discharge Details Clinical Impression: Acute hypoxic respiratory failure, Pneumonia Primary Care Provider: Neftaly Loredo ED Provider: Rajeev Juares [place] Meds and New Rx's Prescriptions: No Action atorvastatin 80 mg tablet 40 mg PO QHS gabapentin 300 mg capsule 300 mg PO BID magnesium oxide 400 mg magnesium capsule 400 mg PO BID sertraline 25 mg tablet 125 mg PO DAILY nitroglycerin [Nitrostat] 0.4 mg tablet, sublingual 0.4 mg sublingual Q5M PRN Rx Instructions: do not exceed 3 doses per episode quetiapine [Seroquel] 25 mg tablet 25 mg PO BID metoprolol tartrate 25 mg tablet 25 mg PO BID omeprazole 20 mg capsule,delayed release(DR/EC) 20 mg PO DAILY bisacodyl [Dulcolax (bisacodyl)] 10 mg suppository 10 mg NC ONCE PRN Rx Instructions: after MOM is administered Fleet Enema 19-7 gram/118 mL enema 118 ml NC ONCE PRN Rx Instructions: After MOM and suppository have been administered without results. magnesium hydroxide [Dulcolax (magnesium hydroxide)] 400 mg/5 mL suspension 30 ml PO DAILY PRN sennosides-docusate sodium 8.6-50 mg tablet 1 tab-cap PO DAILY acetaminophen 650 mg suppository 650 mg NC Q4H PRN lorazepam 1 mg tablet 1 mg PO TID cetirizine [All Day Allergy (cetirizine)] 10 mg tablet 10 mg PO DAILY PRN allopurinol 100 mg Tablet 100 mg PO DAILY Eliquis 5 mg tablet 5 mg PO BID Qty: 60 0RF HPI General Mode of arrival: EMS. Date/Time Provider Initiated Documentation: 03/18/25 17:28. Information obtained by: patient and EMS. History of Present Illness 59 year old F presents to the emergency department with the chief complaint of fever, dyspnea, cough, described as moderate, Patient started experiencing this day(s) (1) and it has been constant. No relieving factors improve symptom(s), No exacerbating factors reported . Patient notes denies chest pain and nausea/vomiting. Patient did receive the following treatments prior to arrival, none Related Data Home Medications Medication Instructions Recorded Confirmed magnesium oxide 400 mg PO BID 04/02/21 03/18/25 allopurinol 100 mg tablet 100 mg PO DAILY 04/17/21 03/18/25 apixaban 5 mg tablet (Eliquis) 5 mg PO BID #60 tabs 04/17/21 03/18/25 bisacodyl 10 mg rectal suppository 10 mg NC ONCE PRN 04/23/21 03/18/25 (Dulcolax (bisacodyl)) magnesium hydroxide 400 mg/5 mL 30 ml PO DAILY PRN 04/23/21 03/18/25 oral suspension (Dulcolax (magnesium hydroxide)) sodium phosphates 19 gram-7 118 ml NC ONCE PRN 04/23/21 03/18/25 gram/118 mL enema (Fleet Enema) atorvastatin 80 mg tablet 40 mg PO QHS 11/21/21 03/18/25 acetaminophen 650 mg rectal 650 mg NC Q4H PRN 03/25/22 03/18/25 suppository lorazepam 1 mg tablet 1 mg PO TID 03/25/22 03/18/25 sennosides 8.6 mg-docusate sodium 1 tab-cap PO DAILY 03/25/22 03/18/25 50 mg tablet nitroglycerin 0.4 mg sublingual 0.4 mg sublingual Q5M PRN 08/26/22 03/18/25 tablet (Nitrostat) cetirizine 10 mg tablet (All Day 10 mg PO DAILY PRN 04/29/23 03/18/25 Allergy (cetirizine)) gabapentin 300 mg capsule 300 mg PO BID 08/03/24 03/18/25 metoprolol tartrate 25 mg tablet 25 mg PO BID 08/03/24 03/18/25 omeprazole 20 mg capsule,delayed 20 mg PO DAILY 08/03/24 03/18/25 release quetiapine 25 mg tablet (Seroquel) 25 mg PO BID 08/03/24 03/18/25 sertraline 25 mg tablet 125 mg PO DAILY 08/03/24 03/18/25 Previous Rx's Medication Instructions Recorded apixaban 5 mg tablet (Eliquis) 5 mg PO BID #60 tabs 04/17/21 Allergies Allergy/AdvReac Type Severity Reaction Status Date / Time codeine Allergy Intermediate unknown Verified 03/18/25 18:10 Penicillins Allergy Unknown Unknown Verified 03/18/25 18:10 strawberry Allergy Unknown unknown Verified 03/18/25 18:10 General Stated Complaint: Fever FAINA: 2 Review of Systems All systems reviewed & are unremarkable except as noted in HPI and below Constitutional Constitutional: Denies chills and Denies fever(s) Cardiovascular Cardiovascular: Denies chest pain and Reports dyspnea Respiratory Respiratory: Reports cough and Reports dyspnea Gastrointestinal Gastrointestinal: Denies abdominal pain, Denies nausea and Denies vomiting Genitourinary Genitourinary: Denies dysuria Exam Const Orientation: alert [facility] Head: normal to inspection Ears: external ears normal General nose exam: external nose normal Mouth: moist mucous membranes Eyes General: appearance normal, both eyes and all related structures Neck Neck: normal visual inspection Resp Effort & Inspection: audible wheezes, cough and labored Auscultation: rhonchi and wheezes Cardio Rate: regular rate Skin General skin exam: no rashes or lesions noted Neuro General: patient alert Extrem General: normal to inspection Psych Mental Status: mental status grossly normal Course Vital Signs Vital signs: Vital Signs Temperature 39.1 C H 03/18/25 17:30 Pulse 132 H 03/18/25 17:30 Respiratory Rate 32 H 03/18/25 17:30 Blood Pressure 134/90 03/18/25 17:30 Pulse Oximetry 88 L 03/18/25 17:30 Temperature 39.1 C H 03/18/25 17:30 Pulse 132 H 03/18/25 17:30 Respiratory Rate 32 H 03/18/25 17:30 Blood Pressure 134/90 03/18/25 17:30 Blood Pressure Position Sitting 03/18/25 17:30 Pulse Oximetry 88 L 03/18/25 17:30 Oxygen Delivery Method Room Air 03/18/25 17:30 Oxygen Flow Rate 0 03/18/25 17:30 Comment placed on O2 at 2l 03/18/25 17:30 Lab/Test Results Lab/Test Results: 03/18/25 17:41 Blood Blood Culture - Pending 03/18/25 17:41 Blood Blood Culture - Pending Medical Decision Making 59-year-old female with a history of prior strokes, A-fib, who resides at [facility] and comes in with fevers and cough along with difficulty breathing starting today. EMS gave her 125 mg of IV Solu-Medrol and also 1 g of Tylenol. She apparently did a dose of doxycycline earlier at rehab. She arrives tachypneic but is alert. She has rhonchi at the bases and apical wheezing bilaterally. No JVD. No abdominal tenderness. She is DNR/DNI. Given her tachypnea and work of breathing I am going to trial her on BiPAP and treat with DuoNeb. Will check CBC CMP procalcitonin lactate troponins and obtain blood cultures and a chest x-ray and reassess. xray shows pulmonary edema and possible infiltrate, given her fever will order levofloxacin given she has a pcn allergy. Will also give a dose of lasix. Patient is more comfortable and appears to have less work of breathing on bipap, will discuss with the hospitalist about admission for further management Differential Diagnosis Differential Diagnosis: pneumonia, covid flu Medical Records Medical records reviewed: Yes I reviewed the patient's medical records. Lab Data Lab results reviewed: Yes I reviewed the patient's lab results. ECG Data Attestation: I personally reviewed and interpreted this ECG (s) as follows: Prior ECG tracings: available for review Interpretation: afib rate of 121 no stemi PFSH All Active Problems (Updated 03/18/25 @ 19:22 by Rajeev Juares MD) Pneumonia (Acute) Acute hypoxic respiratory failure (Acute) Depression (Chronic) Osteoarthritis of right shoulder (Acute) Bursitis of right shoulder (Acute) Adhesive capsulitis of right shoulder (Acute) Migraine headache with aura (Acute) Chronic headache (Acute) Spell of altered cognition (Acute) AMS (altered mental status) (Acute) Heart failure (Acute) Medical History Sudden cardiac arrest Afib Atherosclerotic heart disease of [place] coronary artery without angina pectoris Other symptoms and signs involving cognitive functions and awareness Abnormality of gait and mobility Lack of coordination Receptive expressive language disorder Nontraumatic intracerebral hemorrhage Major depressive disorder Right shoulder pain Osteoarthritis Restlessness and agitation Anxiety Idiopathic gout Muscle weakness COVID-19 Dysphagia Seizures Hemiplegia and hemiparesis following cerebral infarction affecting right dominant side Gout Migraine headache without aura Paroxysmal A-fib Pulmonary HTN CVA (cerebral vascular accident) 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/05/20, aphasia, dysphasia, Respiratory arrest before cardiac arrest Surgical History S/P cholecystectomy Social History Smoking/Tobacco Use Status: Never Smoking risk assessment performed?: Yes Alcohol Intake: never Substance use type: does not use Housing: assisted living facility Current gender identity: female Do you feel safe at home: Yes
[2025-03-18] MEDS: Normal Saline 1,000 ML 1000 ML IV (17:46)
[2025-03-18] MEDS: Albuterol/Ipratropium 3 ML UPD VIAL UPD (17:47)
[2025-03-18 17:52] LABS: BE (Venous) -2 mmol/L (-2-3); HCO3 (Venous) 22 mmol/L (23-28); O2 Sat (Venous) 93 %; TCO2 (Venous) 20 mmol/L (24-29); pCO2 (Venous) 33 mmHg (41-51); pO2 (Venous) 58 mmHg
[2025-03-18 17:56] LABS: Abs Immature Grans 0.02 10^3/uL (0.0-0.06); HCT 34.8 % (36.0-46.0); HGB 11.0 g/dL (11.2-15.7); Immature Grans % 0.3 %; MCH 28.2 pg (27.0-33.0); MCHC 31.6 % (32.0-36.0); MCV 89 fL (80-95); MPV 11.1 fL (8.0-11.0); Platelet Count 175 10^3/uL (130-400); RBC 3.90 10^6/uL (3.93-5.22); RDW 14.9 % (11.7-14.6); RDW-SD 48.6 fL; WBC 6.42 10^3/uL (4.4-10.8)
[2025-03-18 18:12] LABS: INR 1.3 (0.9-1.1); PTT Activated 34.5 sec (20.6-30.2); Prothrombin Time 12.7 sec (9.1-11.1)
[2025-03-18 18:17] LABS: ALT 36 U/L (14-59); AST 36 U/L (15-37); Albumin 3.2 g/dL (3.4-5.0); Alkaline Phosphatase 80 U/L (46-116); Anion Gap 9.3 mmol/L (3-11); BUN 18 mg/dL (7-18); Bilirubin, Total 0.5 mg/dL (0.2-1.0); CO2 22.7 mmol/L (21.0-32.0); Calcium 7.8 mg/dL (8.5-10.1); Chloride 104 mmol/L (98-107); Glucose 121 mg/dL (74-106); Magnesium 1.6 mg/dL (1.8-2.4); Potassium 4.2 mmol/L (3.5-5.1); Sodium 136 mmol/L (136-145); Total Protein 7.2 g/dL (6.4-8.2); Troponin I 7 ng/L (<or=51)
[2025-03-18 18:23] LABS: Procalcitonin 0.29 ng/mL
[2025-03-18] MEDS: Furosemide 20 MG/2 ML VIAL 40 MG IVP (18:55)
[2025-03-18] MEDS: MAGNESIUM SULFATE 1 GM/100 ML BAG IV_INF (18:56)
[2025-03-18] MEDS: levoFLOXacin 750 MG/150 ML BAG 100 MG IVPB (18:56)
[2025-03-18 19:04] LABS: Troponin I 10 ng/L (<or=51)
--- NOTE | 2025-03-18 19:34 | W.PM.HP.N ---
Date of service: 03/18/25 Time of Service: 19:34 Assessment and Plan Assessment and plan (1) Sepsis: Status: Acute Assessment and plan: - Patient meets criteria for subsequent heart rate in the 130s, respiratory rate in the low 40s, temperature 102.4 °F with source of infection being pneumonia - No signs of endorgan damage therefore patient does not meet criteria for severe sepsis - Started on Levaquin, will continue - Follow-up blood culture results (2) Pneumonia: Status: Acute Assessment and plan: - Source of infection as noted above (3) Acute hypoxic respiratory failure: Status: Acute Assessment and plan: -Likely secondary to combination of pneumonia and congestive heart failure. - Currently on BiPAP, wean supplemental oxygen for goal saturation greater than 92% (4) Heart failure: Status: Acute Assessment and plan: - Chest x-ray noted cardiomegaly pulmonary vascular congestion - Patient also had elevated proBNP of 4587 - Status post 40 mg IV Lasix in the emergency department - Monitor I's and O's and give additional Lasix as needed - Echocardiogram ordered once available on 03/20/2025 (5) Afib: Assessment and plan: - History of, currently tachycardic likely in the setting of sepsis - Was given 5 mg IV Lopressor in the emergency department - Will continue home metoprolol 25 mg twice daily as well as home Eliquis (6) Hemiplegia and hemiparesis following cerebral infarction affecting right dominant side: Assessment and plan: History of, along with-expressive aphasia, continue home statin (7) CAD (coronary artery disease): Status: Chronic Assessment and plan: - Continue home metoprolol, statin History of Present Illness History of Present Illness Chief Complaint: fever, cough Narrative: 59yo female with PMH of multiple prior embolic strokes secondary to atrial fibrillation resulting in global aphasia and right hemiparesis who resides at [facility] and rehab presents to the emergency department with fevers, cough and difficulty breathing. Patient reportedly had cough and fever at [facility] where she was given dose of start doxycycline however she became short of breath prompting her to present to the emergency department. Due to patient's prior strokes and aphasia she is unable to provide any additional information. Upon EMSs arrival patient was given 125 mg IV Solu-Medrol and a gram of Tylenol. In the emergency department patient was noted to be tachycardic with heart rate 130s, temperature 102.4 °F, respiratory rate in the low 40s. Patient was placed on BiPAP and had significant improvement of her tachypnea. CBC and CMP were unremarkable, patient did not have an elevated lactic, though proBNP was found to be 4587. Chest x-ray was performed and showed question of bilateral infiltrates as well as cardiomegaly and pulmonary venous congestion suggesting fluid overload. Patient was given 40 mg of IV Lasix was also started on Levaquin given allergies to penicillins. Which time emergency room provider paged hospitalist for admission for patient with sepsis secondary to community-acquired pneumonia as well as possible CHF exacerbation. Review of Systems All systems reviewed & are unremarkable except as noted in HPI and below PFSH All Active Problems (Updated 03/18/25 @ 20:52 by JUANIS LOU) CAD (coronary artery disease) (Chronic) Sepsis (Acute) Pneumonia (Acute) Acute hypoxic respiratory failure (Acute) Depression (Chronic) Osteoarthritis of right shoulder (Acute) Bursitis of right shoulder (Acute) Adhesive capsulitis of right shoulder (Acute) Migraine headache with aura (Acute) Chronic headache (Acute) Spell of altered cognition (Acute) AMS (altered mental status) (Acute) Heart failure (Acute) Medical History Sudden cardiac arrest Afib Atherosclerotic heart disease of [place] coronary artery without angina pectoris Other symptoms and signs involving cognitive functions and awareness Abnormality of gait and mobility Lack of coordination Receptive expressive language disorder Nontraumatic intracerebral hemorrhage Major depressive disorder Right shoulder pain Osteoarthritis Restlessness and agitation Anxiety Idiopathic gout Muscle weakness COVID-19 Dysphagia Seizures Hemiplegia and hemiparesis following cerebral infarction affecting right dominant side Gout Migraine headache without aura Paroxysmal A-fib Pulmonary HTN CVA (cerebral vascular accident) 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/05/20, aphasia, dysphasia, Respiratory arrest before cardiac arrest Surgical History S/P cholecystectomy Social History Smoking/Tobacco Use Status: Never Smoking risk assessment performed?: Yes Alcohol Intake: never Substance use type: does not use Housing: assisted living facility Current gender identity: female Do you feel safe at home: Yes Meds Allergies and Home Medications Allergies Allergy/AdvReac Type Severity Reaction Status Date / Time codeine Allergy Intermediate unknown Verified 03/18/25 18:10 Penicillins Allergy Unknown Unknown Verified 03/18/25 18:10 strawberry Allergy Unknown unknown Verified 03/18/25 18:10 Home Medications Medication Instructions Recorded Confirmed Type magnesium oxide 400 mg PO BID 04/02/21 03/18/25 History allopurinol 100 mg tablet 100 mg PO DAILY 04/17/21 03/18/25 History apixaban 5 mg tablet (Eliquis) 5 mg PO BID #60 tabs 04/17/21 03/18/25 Rx bisacodyl 10 mg rectal suppository 10 mg NE ONCE PRN 04/23/21 03/18/25 History (Dulcolax (bisacodyl)) magnesium hydroxide 400 mg/5 mL 30 ml PO DAILY PRN 04/23/21 03/18/25 History oral suspension (Dulcolax (magnesium hydroxide)) sodium phosphates 19 gram-7 118 ml NE ONCE PRN 04/23/21 03/18/25 History gram/118 mL enema (Fleet Enema) atorvastatin 80 mg tablet 40 mg PO QHS 11/21/21 03/18/25 History acetaminophen 650 mg rectal 650 mg NE Q4H PRN 03/25/22 03/18/25 History suppository lorazepam 1 mg tablet 1 mg PO TID 03/25/22 03/18/25 History sennosides 8.6 mg-docusate sodium 1 tab-cap PO DAILY 03/25/22 03/18/25 History 50 mg tablet nitroglycerin 0.4 mg sublingual 0.4 mg sublingual Q5M PRN 08/26/22 03/18/25 History tablet (Nitrostat) cetirizine 10 mg tablet (All Day 10 mg PO DAILY PRN 04/29/23 03/18/25 History Allergy (cetirizine)) gabapentin 300 mg capsule 300 mg PO BID 08/03/24 03/18/25 History metoprolol tartrate 25 mg tablet 25 mg PO BID 08/03/24 03/18/25 History omeprazole 20 mg capsule,delayed 20 mg PO DAILY 08/03/24 03/18/25 History release quetiapine 25 mg tablet (Seroquel) 25 mg PO BID 08/03/24 03/18/25 History sertraline 25 mg tablet 125 mg PO DAILY 08/03/24 03/18/25 History Exam Narrative Exam Narrative: Fatigued, but otherwise well-appearing female laying in bed in no acute distress, awake, alert, appears to be oriented x 4 though has difficulty given her expressive aphasia, lungs clear to auscultation bilaterally, heart irregularly irregular with rates in the 130s, abdomen soft, nontender, nondistended Results Labs 03/18/25 17:42 03/18/25 17:42 Labs: Laboratory Results - last 24 hr 03/18/25 03/18/25 03/18/25 17:28 17:42 18:35 WBC 6.42 RBC 3.90 L Hgb 11.0 L Hct 34.8 L MCV 89 MCH 28.2 MCHC 31.6 L RDW 14.9 H Plt Count 175 MPV 11.1 H Immature Gran % 0.3 Neutrophils % 74.7 Lymphocytes % 15.1 Monocytes % 9.0 Eosinophils % 0.6 Basophils % 0.3 Nucleated RBC % 0.0 Absolute Neutrophils 4.79 Absolute Lymphocytes 0.97 L Absolute Monocytes 0.58 Absolute Eosinophils 0.04 Absolute Basophils 0.02 PT 12.7 H INR 1.3 H APTT 34.5 H VBG pH 7.43 H VBG pCO2 33 L VBG pO2 58 VBG HCO3 22 L VBG Total CO2 20 L VBG O2 Saturation 93 VBG Base Excess -2 VBG Lactate 1.4 Sodium 136 Potassium 4.2 Chloride 104 Carbon Dioxide 22.7 Anion Gap 9.3 BUN 18 Creatinine 1.1 H Est GFR (CKD-EPI 2020) 57.17 Glucose 121 H Calcium 7.8 L Magnesium 1.6 L Total Bilirubin 0.5 AST 36 ALT 36 Alkaline Phosphatase 80 Troponin I 7 10 NT-Pro-B Natriuret Pep 4587 H Total Protein 7.2 Albumin 3.2 L Procalcitonin 0.29 Last Vital Signs Temp 99.1 F 03/18/25 19:21 Pulse 132 H 03/18/25 19:23 Resp 24 03/18/25 19:23 BP 111/78 03/18/25 19:05 Pulse Ox 95 03/18/25 19:23 Time Spent Time spent with Patient: >75 minutes Time was spent: preparing to see the patient(eg.review tests), obtaining and/or reviewing separately otained hiistory, ordering medications,tests, procedures, referring, communicating with other health family day carer, indepentently interpreting results, counseling the patient and care coordination
[2025-03-18 21:26] LABS: MRSA PCR Negative (Negative)
[2025-03-18] MEDS: Normal Saline Flush 10 ML SYR IVP (21:44)
[2025-03-18] MEDS: Metoprolol 12.5 MG TAB 25 MG PO (21:44)
[2025-03-18] MEDS: Atorvastatin 40 MG TAB PO (22:03)
[2025-03-18] MEDS: Apixaban 5 MG TAB PO (22:03)
[2025-03-18] MEDS: Gabapentin 300 MG CAP PO (22:03)
[2025-03-18] MEDS: LORazepam 1 MG TAB PO (22:03)
[2025-03-18] MEDS: QUEtiapine 25 MG TAB PO (22:03)
[2025-03-18 22:35] LABS: COVID-19 PCR Negative (Negative); RSV PCR Negative (Negative)
[2025-03-18] MEDS: Metoprolol 5 MG/5 ML VIAL IVP (22:35)
[2025-03-18] MEDS: Oseltamivir 75 MG CAP PO (23:08)
[2025-03-19] VITALS (25 sets, daily range): BP systolic 85–115; BP diastolic 59–83; PULSE 83–137; RESP 16–32; TEMP 36–36.6; O2SAT 91–96
[2025-03-19 05:45] LABS: HCT 33.8 % (36.0-46.0); HGB 11.5 g/dL (11.2-15.7); MCH 30.4 pg (27.0-33.0); MCHC 34.0 % (32.0-36.0); MCV 89 fL (80-95); MPV 11.5 fL (8.0-11.0); Platelet Count 178 10^3/uL (130-400); RBC 3.78 10^6/uL (3.93-5.22); RDW 14.6 % (11.7-14.6); RDW-SD 47.9 fL; WBC 4.78 10^3/uL (4.4-10.8)
[2025-03-19 05:59] LABS: Anion Gap 10.4 mmol/L (3-11); BUN 22 mg/dL (7-18); CO2 23.6 mmol/L (21.0-32.0); Calcium 9.1 mg/dL (8.5-10.1); Chloride 104 mmol/L (98-107); Glucose 182 mg/dL (74-106); Potassium 3.9 mmol/L (3.5-5.1); Sodium 138 mmol/L (136-145)
--- NOTE | 2025-03-19 07:15 | INITIAL_ITS ---
Date of service: 03/19/25 Time of Service: 07:15 Care Management Initial Assmt Initial Assessment Reason for Hospitalization: Sepsis, PNA, acute hypoxic respiratory failure Functional Status/Living Situation Patient Presentation: Renita was resting in bed and appeared asleep when CM attempted to met with her in the ICU. She presented to the Emergency Department yesterday afternoon with feve r, cough, and difficulty breathing. Per report, she was initially trialed on BiPAP in the ED but has since been successfully weaned off. She tested positive for influenza and is currently breathing more comfortably. The following information was obtained from MAHIN Johnson at [facility]. Renita is a long- term care resident with a history of stroke. Her diet is dysphagia advanced, and both the [facility] RN and provider are aware. At baseline, Renita is able to self- transfer into her wheelchair and uses it for mobility. She occasionally struggles to find words but is able to communicate her needs with time. She is typically alert to person and place, though less consistent with time orientation. Alex reported that Renita experiences anxiety and receives scheduled Ativan at her facility; the RN team is aware. Renita reportedly enjoys cookies and coffee and has been medically stable for several years. Alex also shared that Sabine is Renita’s primary contact and guardian. The facility has a temporary guardianship form dated 2020 (also on Renita's [facility] chart). JIM contacted Sabine, who confirmed she does not have the guardianship paperwork but serves as Renita’s medical decision-maker only, with no financial authority. requested copies of Renita’s Advance Directive and COLST, and [facility] agreed to fax these documents to our facility. CM notified Meredith Nickerson and Larisa Neville regarding Renita’s positive influenza status and the documentation request. JIM will continue to follow. Town of Residence: [facility] Resides with: Other ([facility]) Caregiver/Guardian: Reported Medical Guardian (no documentation): Sabine Conway Caregiver: [facility] Natural Supports: family Instrumental Activities of Daily Living (ADLs): Requires support Medications Medication Management: No Issues/Barriers identified Physical Functioning/Mobility Assistive Device: WC Advance Directives Advance Directives: Do you have an Advance Directive: N , 14:53 AD On File at [facility]: N 04/23/21, 14:53 Date Asked 03/18/25 03/18/25, 19:07 AD Date Reviewed COLST On File at [facility] Yes Today, 09:51 COLST Date Scanned 03/19/25 Today, 09:51 Code Status Resuscitation Status DNR/DNI Portal Pt does not currently have a portal and education provided: Yes Insurance Coverage/Financial Issues Insurance: Medicaid of [place] - [id number] Access continues to verify Care Team Visit Care Team Role Provider Type Neftaly Loredo Primary Care Provider NON-[facility] STAFF PHYSICIAN Rajeev Juares MD Emergency Provider [facility] STAFF PHYSICIAN Henry Looney MD Admit Provider [facility] STAFF PHYSICIAN Attending Provider Discharge Potential Discharge Needs: PCP F/U Appt Anticipated Barriers to Discharge: Medical Status Patient/Family Education Needs: Review discharge instructions, discuss Ask Me Three Transportation: [facility] Transportation: Wheel chair van Plan: Anticipate Renita will be discharged back to [facility] once medically ready. It will be recommended she follow up with her community providers and discharge plan of care. She will transport via [facility]. CM will follow. Social Determinants of Health Screening Will the Patient Participate in the Screening?: Unable to obtain [facility] All Active Problems (Updated 03/18/25 @ 20:52 by JUANIS LOU) CAD (coronary artery disease) (Chronic) Sepsis (Acute) Pneumonia (Acute) Acute hypoxic respiratory failure (Acute) Depression (Chronic) Osteoarthritis of right shoulder (Acute) Bursitis of right shoulder (Acute) Adhesive capsulitis of right shoulder (Acute) Migraine headache with aura (Acute) Chronic headache (Acute) Spell of altered cognition (Acute) AMS (altered mental status) (Acute) Heart failure (Acute) Medical History Sudden cardiac arrest Afib Atherosclerotic heart disease of [place] coronary artery without angina pectoris Other symptoms and signs involving cognitive functions and awareness Abnormality of gait and mobility Lack of coordination Receptive expressive language disorder Nontraumatic intracerebral hemorrhage Major depressive disorder Right shoulder pain Osteoarthritis Restlessness and agitation Anxiety Idiopathic gout Muscle weakness COVID-19 Dysphagia Seizures Hemiplegia and hemiparesis following cerebral infarction affecting right dominant side Gout Migraine headache without aura Paroxysmal A-fib Pulmonary HTN CVA (cerebral vascular accident) 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/05/20, aphasia, dysphasia, Respiratory arrest before cardiac arrest Surgical History S/P cholecystectomy Social History Smoking/Tobacco Use Status: Never Smoking risk assessment performed?: Yes Alcohol Intake: never Substance use type: does not use Housing: assisted Current gender identity: female Do you feel safe at home: Yes Readmission Within the Past 30 Days Yes or No: No
[2025-03-19] MEDS: Oseltamivir 75 MG CAP PO (07:50)
[2025-03-19] MEDS: QUEtiapine 25 MG TAB PO ×2 (07:50→20:29)
[2025-03-19] MEDS: Omeprazole 20 MG CAPCR PO (07:50)
[2025-03-19] MEDS: Sertraline 25 MG TAB 125 MG PO (07:50)
[2025-03-19] MEDS: LORazepam 1 MG TAB PO ×3 (07:50→20:29)
[2025-03-19] MEDS: Apixaban 5 MG TAB PO ×2 (07:50→20:29)
[2025-03-19] MEDS: Gabapentin 300 MG CAP PO ×2 (07:50→20:28)
[2025-03-19] MEDS: Normal Saline Flush 10 ML SYR IVP ×3 (07:52→20:28)
[2025-03-19] MEDS: Metoprolol 12.5 MG TAB 25 MG PO ×2 (08:37→20:28)
[2025-03-19] MEDS: Furosemide 40 MG/4 ML VIAL IVP (09:41)
--- NOTE | 2025-03-19 09:42 | PGE_ITS ---
Date of Service Date of service: 03/19/25 Time of Service: 08:00 Assessment and Plan Assessment and plan (1) Sepsis: Status: Acute Assessment and plan: - Patient meets criteria for subsequent heart rate in the 130s, respiratory rate in the low 40s, temperature 102.4 °F with source of infection being pneumonia - No signs of endorgan damage therefore patient does not meet criteria for severe sepsis - Started on Levaquin, will continue - Follow-up blood culture results Mar 9: Sepsis resolved. Persistent tachycardia consistent with active influenza A; little response to beta ricardo or benzodiazepine. Discontinued antibiotics as bacterial superinfection unlikely with symptom onset on day of presentation Nov 8. Renal dosing for oseltamivir. Downgrading to medsurg. VTE ppx: apixaban. (2) Pneumonia: Status: Acute Assessment and plan: - Source of infection as noted above (3) Acute hypoxic respiratory failure: Status: Acute Assessment and plan: -Likely secondary to combination of pneumonia and congestive heart failure. - Currently on BiPAP, wean supplemental oxygen for goal saturation greater than 92% Mar 9: resolved, on room air (4) Heart failure: Status: Acute Assessment and plan: - Chest x-ray noted cardiomegaly pulmonary vascular congestion - Patient also had elevated proBNP of 4587 - Status post 40 mg IV Lasix in the emergency department - Monitor I's and O's and give additional Lasix as needed - Echocardiogram ordered once available on 03/20/2025Mar 9: Repeat furosemide 40 IV. unclear if patient has previous HF diagnosis. Echo ordered for Mar 20Thursday. (5) Afib: Assessment and plan: - History of, currently tachycardic likely in the setting of sepsis - Was given 5 mg IV Lopressor in the emergency department - Will continue home metoprolol 25 mg twice daily as well as home Eliquis (6) Hemiplegia and hemiparesis following cerebral infarction affecting right dominant side: Assessment and plan: History of, along with-expressive aphasia, continue home statin (7) CAD (coronary artery disease): Status: Chronic Assessment and plan: - Continue home metoprolol, statin Subjective Subjective Interval history since last seen: Ms. Escamilla is comfortable in bed. She continues to be tachycardic to the low 120's. On room air as of 0800. Exam Narrative Exam Narrative: General: This is a pleasant woman in no distress HEENT: Normocephalic, atraumatic CV: tachycardic, regular rhythm Resp: Bibasilar rales, good movement of air without increased work of breathing on room air Abd: soft, NTND MSK: voluntary motion x4 Neuro: awake, alert, no focal deficits Objective Last Vital Signs Temp 36 C L 03/19/25 03:31 Pulse 115 H 03/19/25 07:18 Resp 20 03/19/25 07:18 BP 98/69 L 03/19/25 07:18 Pulse Ox 96 03/19/25 08:24 Laboratory Results - last 24 hr 03/18/25 03/18/25 03/18/25 17:28 17:42 18:35 WBC 6.42 RBC 3.90 L Hgb 11.0 L Hct 34.8 L MCV 89 MCH 28.2 MCHC 31.6 L RDW 14.9 H Plt Count 175 MPV 11.1 H Immature Gran % 0.3 Neutrophils % 74.7 Lymphocytes % 15.1 Monocytes % 9.0 Eosinophils % 0.6 Basophils % 0.3 Nucleated RBC % 0.0 Absolute Neutrophils 4.79 Absolute Lymphocytes 0.97 L Absolute Monocytes 0.58 Absolute Eosinophils 0.04 Absolute Basophils 0.02 PT 12.7 H INR 1.3 H APTT 34.5 H VBG pH 7.43 H VBG pCO2 33 L VBG pO2 58 VBG HCO3 22 L VBG Total CO2 20 L VBG O2 Saturation 93 VBG Base Excess -2 VBG Lactate 1.4 Sodium 136 Potassium 4.2 Chloride 104 Carbon Dioxide 22.7 Anion Gap 9.3 BUN 18 Creatinine 1.1 H Est GFR (CKD-EPI 2020) 57.17 Glucose 121 H Calcium 7.8 L Magnesium 1.6 L Total Bilirubin 0.5 AST 36 ALT 36 Alkaline Phosphatase 80 Troponin I 7 10 NT-Pro-B Natriuret Pep 4587 H Total Protein 7.2 Albumin 3.2 L Procalcitonin 0.29 COVID-19 Source SARS-CoV-2 (PCR) Influenza Type A (PCR) Influenza Type B (PCR) RSV (PCR) MRSA (TEM-PCR) 03/18/25 03/18/25 03/18/25 20:00 20:28 21:12 WBC RBC Hgb Hct MCV MCH MCHC RDW Plt Count MPV Immature Gran % Neutrophils % Lymphocytes % Monocytes % Eosinophils % Basophils % Nucleated RBC % Absolute Neutrophils Absolute Lymphocytes Absolute Monocytes Absolute Eosinophils Absolute Basophils PT INR APTT VBG pH VBG pCO2 VBG pO2 VBG HCO3 VBG Total CO2 VBG O2 Saturation VBG Base Excess VBG Lactate Sodium Potassium Chloride Carbon Dioxide Anion Gap BUN Creatinine Est GFR (CKD-EPI 2020) Glucose Calcium Magnesium Total Bilirubin AST ALT Alkaline Phosphatase Troponin I Cancelled NT-Pro-B Natriuret Pep Total Protein Albumin Procalcitonin COVID-19 Source Nasopharynx SARS-CoV-2 (PCR) Negative Influenza Type A (PCR) Positive A Influenza Type B (PCR) Negative RSV (PCR) Negative MRSA (TEM-PCR) Negative 03/19/25 05:15 WBC 4.78 RBC 3.78 L Hgb 11.5 Hct 33.8 L MCV 89 MCH 30.4 MCHC 34.0 D RDW 14.6 Plt Count 178 MPV 11.5 H Immature Gran % Neutrophils % Lymphocytes % Monocytes % Eosinophils % Basophils % Nucleated RBC % Absolute Neutrophils Absolute Lymphocytes Absolute Monocytes Absolute Eosinophils Absolute Basophils PT INR APTT VBG pH VBG pCO2 VBG pO2 VBG HCO3 VBG Total CO2 VBG O2 Saturation VBG Base Excess VBG Lactate Sodium 138 Potassium 3.9 Chloride 104 Carbon Dioxide 23.6 Anion Gap 10.4 BUN 22 H Creatinine 1.3 H Est GFR (CKD-EPI 2020) 46.78 Glucose 182 H Calcium 9.1 Magnesium Total Bilirubin AST ALT Alkaline Phosphatase Troponin I NT-Pro-B Natriuret Pep Total Protein Albumin Procalcitonin COVID-19 Source SARS-CoV-2 (PCR) Influenza Type A (PCR) Influenza Type B (PCR) RSV (PCR) MRSA (TEM-PCR) Time Spent with Patient Time Spent with Patient: 35-49 minutes Time was spent: preparing to see the patient(eg.review tests), obtaining and/or reviewing separately otained hiistory, ordering medications,tests, procedures, referring, communicating with other health careers adviser, indepentently interpreting results, counseling the patient and care coordination
[2025-03-19] MEDS: Metoprolol 5 MG/5 ML VIAL IVP (10:32)
--- NOTE | 2025-03-19 11:47 | PHACLINREV_ITS ---
Pharmacy Admission Review Admission Clinical Review Admission Pharmacy Review: Sepsis (Acute) Pneumonia (Acute) Acute hypoxic respiratory failure (Acute) Heart failure (Acute) codeine Allergy (Intermediate, Verified 03/18/25 18:10) unknown Penicillins Allergy (Unknown, Verified 03/18/25 18:10) Unknown strawberry Allergy (Unknown, Verified 03/18/25 18:10) unknown Resuscitation Status DNR/DNI Height 5 ft 4 in Weight 90.7 kg Comments Comments/Follow Ups: blood cultures pending Pharmacy Admission Review Renal Dosing Renal Dosing: BUN 22 mg/dL (7-18) H 03/19/25 05:15 Creatinine 1.3 mg/dL (0.55-1.02) H 03/19/25 05:15 Medications needing adjustments: Intervened (CrCl 49.56 mL/min) List of meds needing interventions: Changed Tamiflu from 75mg BID to 30mg BID due to CrCl < 60 - provider aware Anticoagulation Anticoagulation: Hgb 11.5 g/dL (11.2-15.7) 03/19/25 05:15 Hct 33.8 % (36.0-46.0) L 03/19/25 05:15 Plt Count 178 10^3/uL (130-400) 03/19/25 05:15 INR 1.3 (0.9-1.1) H 03/18/25 17:42 Creatinine 1.3 mg/dL (0.55-1.02) H 03/19/25 05:15 DVT Prophylaxis: Reviewed Medications: Apixaban (5mg PO BID) Relevant Labs Relevant Labs: Sodium 138 mmol/L (136-145) 03/19/25 05:15 Potassium 3.9 mmol/L (3.5-5.1) 03/19/25 05:15 Chloride 104 mmol/L (98-107) 03/19/25 05:15 Magnesium 1.6 mg/dL (1.8-2.4) L 03/18/25 17:42 Electrolytes, C-Reactive P, ESR: Reviewed (received magnesium 1g IV last night) Cardiac Review Cardiac Review: Troponin I Cancelled 03/18/25 20:28 NT-Pro-B Natriuret Pep 4587 pg/mL (<300) H 03/18/25 18:35 Blood Pressure : Heart Rate 100/78 : 123 1046 Blood Pressure : Heart Rate 95/66 : 120 1032 Blood Pressure : Heart Rate 95/66 : 121 1025 Blood Pressure : Heart Rate 99/72 : 118 1000 Blood Pressure : Heart Rate 115/83 : 116 0953 Blood Pressure : Heart Rate 98/69 : 115 0718 Blood Pressure : Heart Rate 95/59 : 118 0600 Blood Pressure : Heart Rate 90/64 : 108 0400 Blood Pressure : Heart Rate 95/65 : 112 0301 Blood Pressure : Heart Rate 85/63 : 112 0200 BP, HR, EF%: Reviewed List meds needing interventions: Has orders for metoprolol 25mg BID and met oprolol 5mg IVP q6h PRN QTc Review QTc: Intervened (515 from 03/18/25) List meds needing interventions: Order was pending for IV levofloxacin by overnight pharmacy. Spoke to provider this morning regarding already prolonged QTc and patient taking quetiapine twice daily. Provider canceled order - ended up deciding patient did not need antibiotics at all IV to PO Switch IV Medications: Reviewed (metoprolol) Home Meds Home Med List reviewed: Intervened Relevent Home Meds Not ordered & why?: allopurinol, bisacodyl (PRN), cetirizine (PRN), magnesium, nitroglycerin (PRN), senna/docusate Asked provider about allopurinol - waiting to hear back Current Meds Current Medication Order Review: Intervened Comments: Changed acetaminophen order from 325mg tablets to 500mg tablets (dose = 1000mg) Changed enema order from ONCE PRN to DAILY PRN PRN Patient is on Tamiflu, day 1 Comments Comments/Follow Ups: blood cultures pending
[2025-03-19] MEDS: Oseltamivir 30 MG CAP PO (20:29)
[2025-03-19] MEDS: Atorvastatin 40 MG TAB PO (20:29)
[2025-03-20] VITALS (12 sets, daily range): BP systolic 106–114; BP diastolic 79–91; PULSE 83–127; RESP 17–28; TEMP 36.3–36.7; O2SAT 90–94
--- NOTE | 2025-03-20 | DI.CT_ITS ---
Exam(s) CT CHEST WO EXAM: CT CHEST WO CLINICAL HISTORY: query consolidations vs interstitial disease. TECHNIQUE: Multi planar reconstructions were performed. CONTRAST MATERIAL: None COMPARISON: CT CT CHEST PE CTA from 06/14/2023 CR XR PORTABLE CHEST AP from 03/18/2025 FINDINGS: CHEST: LUNGS: Tiny bilateral pleural effusions. There is tiny calcified granuloma in right lung. There are mild infiltrates in the lung bases. No significant focal findings in the trachea and mainstem bronchi. MEDIASTINUM: No obvious hilar adenopathy nor anterior mediastinal adenopathy. However, there are enlarged subcarinal lymph nodes noted. Visualized thyroid unremarkable. CARDIAC: There is cardiomegaly and heavy calcification in the left coronary artery and moderate in the right coronary artery. Very minimal pericardial effusion.Caliber of the thoracic aorta is within normal limits. VISUALIZED UPPER ABDOMEN:Noted no adrenal masses. No ascites. OSSEOUS: No significant osseous lesions.No fractures.. IMPRESSION: 1. Cardiomegaly.. Coronary artery calcification as above. 2. Tiny bilateral pleural effusions. Mild infiltrates in both lung bases 3. Subcarinal adenopathy. The patient apparently had a separate CT with IV contrast today. See that separate report. RADIATION DOSE DELIVERED: 475.22mGy.cm Total DLP DATA REPOSITORY: All CT scans at this facility are submitted to the National Radiology Data Registry (NRDR) Dose Index Registry (DIR) with the [employer] (A[employer]). RADIATION OPTIMIZATION: All CT scans at this facility use at least one of these dose optimization techniques: automated exposure control; mA and/or kV adjustment per patient size (includes targeted exams where dose is matched to clinical indication); or iterative reconstruction.
--- NOTE | 2025-03-20 | DI.CT_ITS ---
Exam(s) CT CHEST PE CTA EXAM: CT CHEST PE CTA CLINICAL HISTORY: query PE, tachycardia/tachypnea, influenzaA. TECHNIQUE: Imaging Protocol: CT angiography of the chest was performed using pulmonary embolus protocol. Multi planar reconstructions were performed. CONTRAST MATERIAL: Intravenous: Omnipaque 350 Contrast volume: 100 cc COMPARISON: CT CT CHEST WO from 03/20/2025 FINDINGS: CHEST: PULMONARY ARTERIES: There are no intraluminal filling defects to suggest acute pulmonary emboli. LUNGS: There is some mild infiltrate in both lung bases posterior basal segments both lower lobes and there is a tiny amount of pleural fluid bilaterally.. MEDIASTINUM: No hilar adenopathy but there is subcarinal adenopathy evident. No adenopathy in the anterior mediastinal fat. No incidental axillary adenopathy nor supraclavicular adenopathy. Partially visualized thyroid unremarkable CARDIAC: Cardiomegaly noted. Coronary artery calcification. No significant pericardial effusion.Caliber of the thoracic aorta is within normal limits. There is no significant shift of the interventricular septum. PARTIALLY VISUALIZED UPPERMOST ABDOMEN: There is some reflux of intravenous contrast into the intrahepatic IVC and intrahepatic systemic veins. This may indicate an element of right heart failure in this patient with cardiomegaly. Left atrium is also enlarged. OSSEOUS: No significant osseous lesions.. IMPRESSION: 1. No evidence of acute pulmonary emboli. 2. Small bibasilar infiltrates and tiny amount of pleural fluid bilaterally. 3. There is subcarinal adenopathy evident. There is no hilar adenopathy. Cardiomegaly. Coronary artery calcification. Other findings as above. RADIATION DOSE DELIVERED: 431.75mGy.cm Total DLP DATA REPOSITORY: All CT scans at this facility are submitted to the National Radiology Data Registry (NRDR) Dose Index Registry (DIR) with the [employer] (ACR). RADIATION OPTIMIZATION: All CT scans at this facility use at least one of these dose optimization techniques: automated exposure control; mA and/or kV adjustment per patient size (includes targeted exams where dose is matched to clinical indication); or iterative reconstruction.
[2025-03-20 08:02] LABS: Abs Immature Grans 0.02 10^3/uL (0.0-0.06); HCT 38.5 % (36.0-46.0); HGB 12.6 g/dL (11.2-15.7); Immature Grans % 0.2 %; MCH 28.6 pg (27.0-33.0); MCHC 32.7 % (32.0-36.0); MCV 87 fL (80-95); MPV 11.2 fL (8.0-11.0); Platelet Count 208 10^3/uL (130-400); RBC 4.41 10^6/uL (3.93-5.22); RDW 15.1 % (11.7-14.6); RDW-SD 48.2 fL; WBC 8.73 10^3/uL (4.4-10.8)
[2025-03-20] MEDS: LORazepam 1 MG TAB PO ×3 (08:03→19:15)
[2025-03-20] MEDS: Allopurinol 100 MG TAB PO (08:03)
[2025-03-20] MEDS: Normal Saline Flush 10 ML SYR IVP ×3 (08:03→19:16)
[2025-03-20] MEDS: Omeprazole 20 MG CAPCR PO (08:03)
[2025-03-20] MEDS: Apixaban 5 MG TAB PO ×2 (08:03→19:15)
[2025-03-20] MEDS: QUEtiapine 25 MG TAB PO ×2 (08:03→19:15)
[2025-03-20] MEDS: Metoprolol 12.5 MG TAB 25 MG PO (08:03)
[2025-03-20] MEDS: Gabapentin 300 MG CAP PO ×2 (08:03→19:15)
[2025-03-20] MEDS: Oseltamivir 30 MG CAP PO ×2 (08:03→19:15)
[2025-03-20] MEDS: Sertraline 25 MG TAB 125 MG PO (08:04)
[2025-03-20 08:18] LABS: Magnesium 2.0 mg/dL (1.8-2.4)
[2025-03-20 08:26] LABS: ALT 46 U/L (14-59); AST 44 U/L (15-37); Albumin 3.5 g/dL (3.4-5.0); Alkaline Phosphatase 77 U/L (46-116); Anion Gap 11.2 mmol/L (3-11); BUN 37 mg/dL (7-18); Bilirubin, Total 0.6 mg/dL (0.2-1.0); CO2 26.8 mmol/L (21.0-32.0); Calcium 9.3 mg/dL (8.5-10.1); Chloride 103 mmol/L (98-107); Glucose 103 mg/dL (74-106); Potassium 3.9 mmol/L (3.5-5.1); Sodium 141 mmol/L (136-145); Total Protein 8.2 g/dL (6.4-8.2)
[2025-03-20] MEDS: Normal Saline - Diluent 50 ML VIAL IJ (13:09)
[2025-03-20] MEDS: Omnipaque 350 MG/ML 100 ML BTL IJ (13:52)
--- NOTE | 2025-03-20 14:59 | PDOC.CMPRO ---
Date of service: 03/20/25 Time of Service: 14:59 Care Management Progress Note Progress Note Text Progress Note Text: Renita was awake in her room. Per RN report, Renita underwent a CT scan today to rule out PE and has an echocardiogram planned. Per RN, she remains tachycardic but otherwise is reportedly back to baseline. At this time, discharge is anticipated for Thursday if medically ready. CM notified the freight [employer] and Admissions at [facility] via email regarding the potential discharge plan. Renita’s sister has been visiting and remains involved in her care. CM will follow. Discharge Potential Discharge Needs: PCP F/U Appt Anticipated Barriers to Discharge: Medical Status Patient/Family Education Needs: Review discharge instructions, discuss [facility] Me Three Transportation: RCT RCT Transportation: Wheel chair van Plan: Anticipate Renita will be discharged back to [facility] once medically ready. It will be recommended she follow up with her community providers and discharge plan of care. She will transport via [facility]. CM will follow. Social Determinants of Health Screening Will the Patient Participate in the Screening?: Unable to obtain
[2025-03-20] MEDS: LORazepam 1 MG TAB 2 MG PO (16:16)
[2025-03-20] MEDS: Lactated Ringers 1,000 ML 1000 ML IV (16:17)
--- NOTE | 2025-03-20 17:02 | W.PM.PROGNOT ---
Date of Service Date of service: 03/20/25 Time of Service: 08:00 Assessment and Plan Assessment and plan (1) Sepsis: Status: Acute Assessment and plan: - Patient meets criteria for subsequent heart rate in the 130s, respiratory rate in the low 40s, temperature 102.4 °F with source of infection being pneumonia - No signs of endorgan damage therefore patient does not meet criteria for severe sepsis - Started on Levaquin, will continue - Follow-up blood culture results Mar 19: Sepsis resolved. Persistent tachycardia consistent with active influenza A; little response to beta ricardo or benzodiazepine. Discontinued antibiotics as bacterial superinfection unlikely with symptom onset on day of presentation Mar 8. Renal dosing for oseltamivir. Downgrading to medsurg. VTE ppx: apixaban. (2) Pneumonia: Status: Acute Assessment and plan: - Source of infection as noted above (3) Acute hypoxic respiratory failure: Status: Acute Assessment and plan: -Likely secondary to combination of pneumonia and congestive heart failure. - Currently on BiPAP, wean supplemental oxygen for goal saturation greater than 92% Mar 9: resolved, on room air (4) Heart failure: Status: Acute Assessment and plan: - Chest x-ray noted cardiomegaly pulmonary vascular congestion - Patient also had elevated proBNP of 4587 - Status post 40 mg IV Lasix in the emergency department - Monitor I's and O's and give additional Lasix as needed - Echocardiogram ordered once available on 03/20/2025 Mar 19: Repeat furosemide 40 IV. unclear if patient has previous HF diagnosis. Echo ordered for Mar 20Thursday. Mar 20: Holding diuresis today. Hopefully will be able to get echocardiogram with normalization of heart rate. (5) Afib: Assessment and plan: - History of, currently tachycardic likely in the setting of sepsis - Was given 5 mg IV Lopressor in the emergency department - Will continue home metoprolol 25 mg twice daily as well as home Eliquis Mar 20: increasing metoprolol to 50 BID (6) Hemiplegia and hemiparesis following cerebral infarction affecting right dominant side: Assessment and plan: History of, along with-expressive aphasia, continue home statin (7) CAD (coronary artery disease): Status: Chronic Assessment and plan: - Continue home metoprolol, statin (8) Tachycardia with heart rate 100-120 beats per minute: Status: Acute Assessment and plan: Persistent HR around 120 CTA done, negative for PE Poor response to IV metoprolol pushes Increasing anxiety medication and PO metoprolol dose Echo not able to be done due to tachycardia Continue telemonitoring Subjective Subjective Interval history since last seen: Ms. Escamilla is comfortable in bed. Poor insight into her health. She hopes to go back to her facility soon. She reports that she is not bothered' by her elevated heart rate. Exam Narrative Exam Narrative: General: This is a pleasant, obese woman in no distress HEENT: Normocephalic, atraumatic CV: tachycardic, regular rhythm Resp: Bibasilar rales, good movement of air without increased work of breathing on room air Abd: soft, NTND MSK: voluntary motion x4 Neuro: awake, alert, no focal deficits. Cognitive impairment. Objective Last Vital Signs Temp 36.6 C 03/20/25 14:06 Pulse 123 H 03/20/25 14:06 Resp 20 03/20/25 14:06 BP 114/79 03/20/25 14:06 Pulse Ox 93 03/20/25 14:06 Laboratory Results - last 24 hr 03/20/25 07:49 WBC 8.73 RBC 4.41 Hgb 12.6 Hct 38.5 MCV 87 MCH 28.6 MCHC 32.7 RDW 15.1 H Plt Count 208 MPV 11.2 H Immature Gran % 0.2 Neutrophils % 72.1 Lymphocytes % 18.8 Monocytes % 8.7 Eosinophils % 0.1 Basophils % 0.1 Nucleated RBC % 0.0 Absolute Neutrophils 6.29 Absolute Lymphocytes 1.64 Absolute Monocytes 0.76 Absolute Eosinophils 0.01 Absolute Basophils 0.01 Sodium 141 Potassium 3.9 Chloride 103 Carbon Dioxide 26.8 Anion Gap 11.2 H BUN 37 H Creatinine 1.4 H Est GFR (CKD-EPI 2020) 42.80 Glucose 103 Calcium 9.3 Magnesium 2.0 Total Bilirubin 0.6 AST 44 H ALT 46 Alkaline Phosphatase 77 Total Protein 8.2 Albumin 3.5 Time Spent with Patient Time Spent with Patient: 25-34 minutes Time was spent: preparing to see the patient(eg.review tests), obtaining and/or reviewing separately otained hiistory, ordering medications,tests, procedures, referring, communicating with other health critical care registered nurse, indepentently interpreting results, counseling the patient and care coordination
[2025-03-20] MEDS: Atorvastatin 40 MG TAB PO (19:14)
[2025-03-20] MEDS: Acetaminophen 500 MG TAB 1000 MG PO (19:15)
[2025-03-20] MEDS: Metoprolol 50 MG TAB PO (19:15)
[2025-03-21] VITALS (28 sets, daily range): BP systolic 86–114; BP diastolic 70–84; PULSE 69–119; RESP 11–31; TEMP 35.8–36.7; O2SAT 89–98
--- NOTE | 2025-03-21 08:00 | DI.US_ITS ---
APPROVED REPORT EXAM: Comprehensive 2D, Doppler, and color-flow Echocardiogram Patient Location: In-Patient Relief Map Modeler: Shi Bailon RT (R) (CT) [facility] Rhythm: Atrial Fibrillation Other Information Study Quality: Technically Difficult Conclusion Normal left ventricular wall thickness and chamber size. Ejection fraction is 20 to 25% with global hypokinesis. Patient is in atrial fibrillation and an uncontrolled rate with anyh-tc-wevs variation Normal right ventricular size. The right ventricle is hypocontractile Left atrium is severely enlarged. Moderate right atrial enlargement There are no structural valvular abnormalities Mild to moderate tricuspid regurgitation. Estimated right ventricular systolic pressure is 36 mmHg Wall motion Left Ventricle The left ventricle is grossly normal size. Left ventricular ejection fraction is severely decreased. There is normal left ventricular wall thickness. There is global hypokinesis of the left ventricle. Diastolic function is indeterminate due to atrial fibrillation There is no ventricular septal defect visualized. A false tendon is noted (normal variant). LVEF is 20-25%. Right Ventricle The right ventricle is normal size. Right ventricle is moderately hypokinetic. Right ventricular systolic function is moderately reduced. There is normal right ventricular wall thickness. Atria Left atrium is severely dilated. Right atrium is moderately dilated. The interatrial septum is intact with no evidence for an atrial septal defect. Aortic Valve Aortic valve is trileaflet. There is no aortic valvular stenosis. No aortic regurgitation is present. Mitral Valve The mitral valve is normal in structure. No evidence of mitral valve stenosis. Trace to mild mitral regurgitation. Tricuspid Valve The tricuspid valve is normal in structure. Mild to moderate tricuspid regurgitation. The RVSP is 36.4 mmHg. Pulmonic Valve Pulmonic valve is grossly normal in structure. There is no pulmonic valvular stenosis. Trace pulmonic regurgitation. Great Vessels The aortic root is normal in size. The ascending aorta is normal in size. Pericardium There is no pericardial effusion. 2D Dimensions IVSD d PLAX 1.30 cm F: 0.6-1.0 Ao Root d 2.98 cm F: 2.7 - 3.3 LVPW d PLAX 1.13 cm F: 0.6 - 1.0 Ao Asc Diam d 3.05 cm F: 2.3 - 3.1 LVID d PLAX 4.01 cm F: 3.8 - 5.2 IVC Diam exp d SLAX 2.2 cm LVDs 3.63 cm F: 2.2 - 3.5 LV EF Teichholz 21.1 % FS 9.47 % LV EDV (Teich) 70.5 mL LV ESV (Teich) 55.6 mL M-Mode TAPSE 1.30 cm (M/F) >1.7 LV Volumes - Method of Disks (Toscano's) Single Plane 2D LV Volumes Biplane 2D LV Volumes LV EDV A4C 57.5 mL LV EDV BP 55.83 mL F: 46 - 106 LV ESV A4C 40.9 mL LV ESV BP 42.0 mL LVEF(%) A4C 28.8 % LVEF(%) BP 24.69 % F: 54 - 74 LV EDV A2C 48.1 mL LV EDV BP Index 29.53 mL/m2 F: 29 - 61 LV ESV A2C 39.1 mL SV BP LVEF(%) A2C 18.9 % SV Index RV Strain Global Peak Long. Strain A4C 4.15 Global Peak Long. Strain A4C FW 4.48 LA Volume LA Length A4C 7.6 cm LA Length A2C 6.8 cm LA Area A4C s 28.43 cm2 LA Area A2C s 27.15 cm2 LA Vol A4C A-L 90.51 mL LA Vol A2C A-L 91.98 mL LA Vol Biplane A-L 96.3 mL LA Vol/BSA A4C A-L LA Vol/BSA A2C A-L LA Vol/BSA BP A-L 51.0 mL/m2 LA Vol A4C MOD 86.2 mL LA Vol A2C MOD 87.3 mL LA Vol BP MOD 91.2 mL LV Diastology MV E' medial 0.057 (>0.07 m/s) MV E Vmax 1.40 (0.4-1.3 m/s) MV E/E' MED 24.57 (<14) MV E' lateral 0.059 (>0.1 m/s) MV E/E' LAT 23.84 (<14) MV E' Average 0.058 m/s MV E/E'(average) 24.20 Aortic Valve LVOT Diam s 2.10 cm Mitral Valve MV DT 166 (160-240 msec) Pulmonary Valve PV Vmax 0.53 (0.5-1.5 m/s) RVOT Vmax 0.41 m/s PV Peak Grad 1.1 mmHg RVOT Peak Gr. 0.7 mmHg PV Mean Tacho 0.38 m/s RVOT VTI 0.060 m PV Mean Grad 0.6 mmHg RVOT Mean Gr. 0.4 mmHg Tricuspid Valve RA Pressure 8.00 mmHg TR Vmax 2.66 m/s TV S' 0.06 m/s TR Peak Grad 28.3 mmHg RVSP (TR) 36.4 mmHg
--- NOTE | 2025-03-21 08:38 | TELEFU_ITS ---
Date of service: 03/21/25 Time of Service: 08:38 Nutrition Note NOTE: Unable to visit with patient today - documentation based on chart review. Pt is 59yo female in being treated in ICU for PNA/acute resp failure/sepsis, tachycardia, CAD, heart failure. Hx of cerebral infact with hemiplegia. Resides at residential at baseline. Fair to good intake over the last 2 days per nursing records on regular diet with soft and bite size consistencies. Weight hx on recent upward trend with some attributed to fluid. NFPE not performed today. Relayed food allergy info to kitchen and pt menus noted. Nutrition related labs yesterday good outside of elevated BUN/Cr. Will monitor and follow to offer any nutrition education needed/desired and will approach to offer outpatient nutrition services for weight mgt if interested. Time Spent in Nutritional Counseling and Treatment: 0
[2025-03-21] MEDS: QUEtiapine 25 MG TAB PO ×2 (08:49→19:41)
[2025-03-21] MEDS: Gabapentin 300 MG CAP PO ×2 (08:49→19:41)
[2025-03-21] MEDS: Metoprolol 50 MG TAB PO ×2 (08:49→19:41)
[2025-03-21] MEDS: Omeprazole 20 MG CAPCR PO (08:49)
[2025-03-21] MEDS: Sertraline 25 MG TAB 125 MG PO (08:49)
[2025-03-21] MEDS: Apixaban 5 MG TAB PO ×2 (08:49→19:41)
[2025-03-21] MEDS: Oseltamivir 30 MG CAP PO ×2 (08:49→19:41)
[2025-03-21] MEDS: Allopurinol 100 MG TAB PO (08:50)
[2025-03-21] MEDS: LORazepam 1 MG TAB PO ×3 (08:50→19:41)
[2025-03-21] MEDS: Normal Saline Flush 10 ML SYR IVP ×2 (08:50→19:40)
--- NOTE | 2025-03-21 15:07 | PGE_ITS ---
Date of Service Date of service: 03/21/25 Time of Service: 08:00 Assessment and Plan Assessment and plan (1) Sepsis: Status: Resolved Assessment and plan: - Patient meets criteria for subsequent heart rate in the 130s, respiratory rate in the low 40s, temperature 102.4 °F with source of infection being pneumonia - No signs of endorgan damage therefore patient does not meet criteria for severe sepsis - Started on Levaquin, will continue - Follow-up blood culture results Mar 19: Sepsis resolved. Persistent tachycardia consistent with active influenza A; little response to beta ricardo or benzodiazepine. Discontinued antibiotics as bacterial superinfection unlikely with symptom onset on day of presentation Nov 8. Renal dosing for oseltamivir. Downgrading to medsurg. VTE ppx: apixaban. (2) Pneumonia: Status: Acute Assessment and plan: - Source of infection as noted above (3) Acute hypoxic respiratory failure: Status: Acute Assessment and plan: -Likely secondary to combination of pneumonia and congestive heart failure. - Currently on BiPAP, wean supplemental oxygen for goal saturation greater than 92% Mar 9: resolved, on room air (4) Heart failure: Status: Acute Assessment and plan: - Chest x-ray noted cardiomegaly pulmonary vascular congestion - Patient also had elevated proBNP of 4587 - Status post 40 mg IV Lasix in the emergency department - Monitor I's and O's and give additional Lasix as needed - Echocardiogram ordered once available on 03/20/2025 Mar 19: Repeat furosemide 40 IV. unclear if patient has previous HF diagnosis. Echo ordered for Mar 20Thursday. Mar 20: Holding diuresis today. Hopefully will be able to get echocardiogram with normalization of heart rate. Mar 21: Still elevated HR, echo delayed (5) Afib: Assessment and plan: - History of, currently tachycardic likely in the setting of sepsis - Was given 5 mg IV Lopressor in the emergency department - Will continue home metoprolol 25 mg twice daily as well as home Eliquis Mar 10: increasing metoprolol to 50 BID (6) Hemiplegia and hemiparesis following cerebral infarction affecting right dominant side: Assessment and plan: History of, along with-expressive aphasia, continue home statin (7) CAD (coronary artery disease): Status: Chronic Assessment and plan: - Continue home metoprolol, statin (8) Tachycardia with heart rate 100-120 beats per minute: Status: Acute Assessment and plan: Persistent HR around 120 CTA done, negative for PE Poor response to IV metoprolol pushes Increasing anxiety medication and PO metoprolol dose Echo not able to be done due to tachycardia Continue telemonitoring Mar 11: Overnight nearly without tachycardia, again above 120 during the day. Continue to monitor. Subjective Subjective Interval history since last seen: Ms. Escamilla is comfortable in bed. No overnight events, no new complaints. Exam Narrative Exam Narrative: General: This is a pleasant, obese woman in no distress HEENT: Normocephalic, atraumatic CV: tachycardic, regular rhythm Resp: Bibasilar rales, good movement of air without increased work of breathing on room air Abd: soft, NTND MSK: voluntary motion x4 Neuro: awake, alert, no focal deficits. Cognitive impairment. Objective Last Vital Signs Temp 36.6 C 03/21/25 14:55 Pulse 105 H 03/21/25 14:55 Resp 19 03/21/25 14:55 BP 101/79 03/21/25 14:55 Pulse Ox 95 03/21/25 09:00 Time Spent with Patient Time Spent with Patient: 25-34 minutes Time was spent: preparing to see the patient(eg.review tests), obtaining and/or reviewing separately otained hiistory, ordering medications,tests, procedures, referring, communicating with other health healthcare account manager, indepentently interpreting results, counseling the patient and care coordination
--- NOTE | 2025-03-21 17:13 | CMPROGNOTE_ITS ---
Date of service: 03/21/25 Time of Service: 11:00 Care Management Progress Note Progress Note Text Progress Note Text: Renita was sitting up in the bed when CM met with her today. She was very pleasant. She showed CM her bracelet for the [facility] and stated that is where she lives and she would like to go back there. She was told she would likely return tomorrow, and she was very pleased with this. Renita wanted to know how she would get there and this was explained to her. Discharge Potential Discharge Needs: Other (provider follow up) Anticipated Barriers to Discharge: None Identified Patient/Family Education Needs: Review discharge instructions, discuss Ask Me Three Transportation: [facility] RCT Transportation: Wheel chair van Plan: Anticipate Renita will be discharged back to [facility] once medically ready. It will be recommended she follow up with her community providers and discharge plan of care. She will transport via [facility]. CM will follow. Social Determinants of Health Screening Will the Patient Participate in the Screening?: Unable to obtain
[2025-03-21] MEDS: Acetaminophen 500 MG TAB 1000 MG PO (18:28)
--- NOTE | 2025-03-21 18:38 | NUR.NOTE ---
Nursing Note: REport rec'd from [facility] @ 1800; Pt transported to [place] room 225 via wheel chair. Assist of 2, verbal cues needed to keep patient on task. Patient oriented to room, call light system and tv.
--- NOTE | 2025-03-21 18:43 | W.PC.ACHO ---
Registration Status: ADM IN Primary Language: Preferred Language: ED Information & Data Chief Complaint Fever 03/18/25 17:42 Other Complaint SOB 03/18/25 17:30 Triage Note from [facility] rehab, sob and 03/18/25 17:30 fever 103 by ems, being treated for pneumonia with doxycycline, had one does at rehab. Ems gave 1 gram of Tylenol and 125mg solu- medrol Medical / Surgical History (Last Reviewed 08/03/24 @ 10:41 by Yas Boateng MD) Sudden cardiac arrest Afib Atherosclerotic heart disease of [place] coronary artery without angina pectoris Other symptoms and signs involving cognitive functions and awareness Abnormality of gait and mobility Lack of coordination Receptive expressive language disorder Nontraumatic intracerebral hemorrhage Major depressive disorder Right shoulder pain Osteoarthritis Restlessness and agitation Anxiety Idiopathic gout Muscle weakness COVID-19 Dysphagia Seizures Hemiplegia and hemiparesis following cerebral infarction affecting right dominant side Gout Migraine headache without aura Paroxysmal A-fib Pulmonary HTN CVA (cerebral vascular accident) Respiratory arrest before cardiac arrest (Last Reviewed 08/03/24 @ 10:41 by Yas Boateng MD) S/P cholecystectomy Most Recent Vital Signs Temperature 36.3 C L 03/21/25 18:08 Temperature Source Temporal Artery Scan 03/21/25 18:08 Pulse 112 H 03/21/25 18:08 Pulse 107 H 03/21/25 16:00 Respiratory Rate 16 03/21/25 18:08 Blood Pressure 114/83 03/21/25 18:08 Blood Pressure Mean 93 03/21/25 18:08 Blood Pressure Position Supine 03/18/25 21:00 Pulse Oximetry 98 03/21/25 18:08 Oxygen Delivery Method Room Air 03/21/25 18:08 Oxygen Flow Rate 0 03/21/25 18:08 Fraction of Inspired Oxygen (FIO2) 30 03/20/25 09:05 Pain Level 4 03/21/25 18:28 Comment placed on O2 at 2l 03/18/25 17:30 Allergies codeine Allergy (Intermediate, Verified 03/18/25 18:10) unknown Penicillins Allergy (Unknown, Verified 03/18/25 18:10) Unknown strawberry Allergy (Unknown, Verified 03/18/25 18:10) unknown Active Medications Generic Name Dose Route Start Last Admin Trade Name Freq PRN Reason Stop Dose Admin Acetaminophen 1,000 mg 03/19/25 07:47 03/21/25 18:28 Acetaminophen 500 Mg Tab PO 1,000 mg Q6H PRN PRN Administration Allopurinol 100 mg 03/20/25 08:30 03/21/25 08:50 Allopurinol 100 Mg Tab PO 100 mg DAILY JONATHAN Administration Apixaban 5 mg 03/18/25 21:11 03/21/25 08:49 Apixaban 5 Mg Tab PO 5 mg BID JONATHAN Administration Atorvastatin Calcium 40 mg 03/18/25 22:00 03/20/25 19:14 Atorvastatin 40 Mg Tab PO 40 mg QPM JONATHAN Administration Gabapentin 300 mg 03/18/25 21:11 03/21/25 08:49 Gabapentin 300 Mg Cap PO 300 mg BID JONATHAN Administration Lorazepam 1 mg 03/18/25 21:11 03/21/25 14:55 Lorazepam 1 Mg Tab PO 1 mg TID JONATHAN Administration Metoprolol Tartrate 50 mg 03/20/25 20:00 03/21/25 08:49 Metoprolol 50 Mg Tab PO 50 mg BID JONATHAN Administration Omeprazole 20 mg 03/19/25 07:30 03/21/25 08:49 Omeprazole 20 Mg Capcr PO 20 mg DAILY@0730 JONATHAN Administration Oseltamivir Phosphate 30 mg 03/19/25 20:00 03/21/25 08:49 Oseltamivir 30 Mg Cap PO 30 mg BID JONATHAN Administration Quetiapine Fumarate 25 mg 03/18/25 21:11 03/21/25 08:49 Quetiapine 25 Mg Tab PO 25 mg BID JONATHAN Administration Sertraline HCl 125 mg 03/19/25 08:30 03/21/25 08:49 Sertraline 25 Mg Tab PO 125 mg DAILY JONATHAN Administration Sodium Chloride 0 ml 03/18/25 17:28 03/19/25 10:34 Normal Saline Flush 10 Ml Syr IVP 40 ml PRN PRN Administration Sodium Chloride 0 ml 03/18/25 20:00 03/21/25 08:50 Normal Saline Flush 10 Ml Syr IVP 20 ml BID JONATHAN Administration IV IV Catheter Type [Right Saline Lock Forearm] IV Catheter Type [Right Saline Lock Antecubital] IV Catheter Type [Left Saline Lock Antecubital] IV Catheter Gauge [Right 20 Forearm] IV Catheter Gauge [Right 18 Antecubital] IV Catheter Gauge [Left 18 Antecubital] 03/18/25 17:50 Blood Culture - Preliminary Blood NO GROWTH 48 HOURS 03/18/25 17:42 Blood Culture - Preliminary Blood NO GROWTH 48 HOURS Intake and Output - 24 Hour Total 03/18/25 17:23 thru 03/21/25 14:59 Intake Total 5220 Output Total 6590 Balance -1370 Weight 95.1 kg Intake: IV 2180 Oral 3040 Output: Urine 6590 Other: Urine Color Yellow Urine Appearance Clear Stool Size Large Stool Characteristics Soft Formed Brown Urinary Catheter Urinary Catheter Date of 03/18/25 Insertion [Urethral (Sam)] Urinary Catheter Date of 03/18/25 Insertion [Urethral (Sam)] Time of insertion [Urethral ( 19:12 Sam)] Time of insertion [Urethral ( 19:12 Sam)] Falls Risk Assessment History of Falls No History 03/18/25 21:00 Contributing Factors Confusion,Unstable, 03/18/25 21:00 Impairments Tubes/Lines With any additional score 03/18/25 21:00 Gait Evaluation W/any additional score 03/18/25 21:00 Cognition Cognitive impairment 03/18/25 21:00 Fall Total Score 64 03/18/25 21:00 Level of Risk High Risk 03/18/25 21:00 Problems (Last Reviewed 08/03/24 @ 10:41 by Yas Boateng MD) Tachycardia with heart rate 100-120 beats per minute (Acute) CAD (coronary artery disease) (Chronic) Sepsis (Acute) Pneumonia (Acute) Acute hypoxic respiratory failure (Acute) Heart failure (Acute) Notes 03/21/25 18:38 Nursing Notes by Thomas Carter Nursing Note: REport rec'd from [facility] @ 1800; Pt transported to [place] room 225 via wheel chair. Assist of 2, verbal cues needed to keep patient on task. Patient oriented to room, call light system and tv. Initialized on 03/21/25 18:38 - END OF NOTE Attestation Statement: By documenting the first initial, last name, and credentials of the reporting nurse below, both parties acknowledge that all relevant information regarding the patient handoff has been communicated, and that all questions have been addressed to ensure continuity and safety of care. Additional Patient Information/Comments: Report Received From: [facility]
[2025-03-21] MEDS: Atorvastatin 40 MG TAB PO (19:41)
[2025-03-22 07:52] VITALS: BP 98/80; PULSE 117; RESP 17; TEMP 36.7; O2SAT 94
--- NOTE | 2025-03-22 08:10 | CMPROGNOTE_ITS ---
Date of service: 03/22/25 Time of Service: 10:04 Care Management Progress Note Progress Note Text Progress Note Text: Renita was awake in her room at this time. Per report, Renita's heart rate remains greater than 100. Anticipate she will be discharged once her heart rate is lower than 100. CM requested access verify Renita's insurance with [facility] as she is now listed as self pay. CM notified the draft roller picker and Admissions at [facility] via email regarding the discharge plan. Per report, she is feeling better. CM will follow. Discharge Potential Discharge Needs: PCP F/U Appt Anticipated Barriers to Discharge: Medical Status Patient/Family Education Needs: Review discharge instructions, discuss Ask Me Three Transportation: [facility] RCT Transportation: Wheel chair van Plan: Anticipate Renita will be discharged back to [facility] once medically ready. It will be recommended she follow up with her community providers and discharge plan of care. She will transport via [facility]. CM will follow. Social Determinants of Health Screening Will the Patient Participate in the Screening?: Unable to obtain
[2025-03-22 08:26] VITALS: BP 112/78; PULSE 106; O2SAT 94
[2025-03-22] MEDS: Apixaban 5 MG TAB PO ×2 (09:05→20:11)
[2025-03-22] MEDS: Omeprazole 20 MG CAPCR PO (09:05)
[2025-03-22] MEDS: Allopurinol 100 MG TAB PO (09:05)
[2025-03-22] MEDS: QUEtiapine 25 MG TAB PO ×2 (09:05→20:12)
[2025-03-22] MEDS: Gabapentin 300 MG CAP PO ×2 (09:05→20:11)
[2025-03-22] MEDS: Oseltamivir 30 MG CAP PO ×2 (09:05→20:11)
[2025-03-22] MEDS: Metoprolol 50 MG TAB PO ×2 (09:05→20:16)
[2025-03-22] MEDS: Normal Saline Flush 10 ML SYR IVP ×2 (09:06→20:17)
[2025-03-22] MEDS: LORazepam 1 MG TAB PO ×3 (09:06→20:11)
[2025-03-22] MEDS: Sertraline 25 MG TAB 125 MG PO (09:06)
[2025-03-22 11:15] VITALS: BP 107/79; PULSE 121; RESP 16; TEMP 36.3; O2SAT 94
--- NOTE | 2025-03-22 13:34 | PGE_ITS ---
Date of Service Date of service: 03/22/25 Time of Service: 08:00 Assessment and Plan Assessment and plan (1) Acute on chronic HFrEF (heart failure with reduced ejection fraction): Status: Acute Assessment and plan: - Chest x-ray noted cardiomegaly pulmonary vascular congestion - Patient also had elevated proBNP of 4587 - Status post 40 mg IV Lasix in the emergency department - Monitor I's and O's and give additional Lasix as needed - Echocardiogram ordered once available on 03/20/2025 Mar 19: Repeat furosemide 40 IV. unclear if patient has previous HF diagnosis. Echo ordered for Mar 20Thursday. Mar 20: Holding diuresis today. Hopefully will be able to get echocardiogram with normalization of heart rate. Mar 21: Still elevated HR, echo delayed Mar 22: Echo showing EF 20-25% with severe defects. Restarted diuresis. (2) Influenza A virus present: Status: Acute Assessment and plan: Completing oseltamivir course. (3) Sepsis: Status: Resolved Assessment and plan: - Patient meets criteria for subsequent heart rate in the 130s, respiratory rate in the low 40s, temperature 102.4 °F with source of infection being pneumonia - No signs of endorgan damage therefore patient does not meet criteria for severe sepsis - Started on Levaquin, will continue - Follow-up blood culture results Mar 19: Sepsis resolved. Persistent tachycardia consistent with active influenza A; little response to beta ricardo or benzodiazepine. Discontinued antibiotics as bacterial superinfection unlikely with symptom onset on day of presentation Mar 8. Renal dosing for oseltamivir. Downgrading to medsurg. VTE ppx: apixaban. (4) Acute hypoxic respiratory failure: Status: Resolved Assessment and plan: -Likely secondary to combination of pneumonia and congestive heart failure. - Currently on BiPAP, wean supplemental oxygen for goal saturation greater than 92% Mar 9: resolved, on room air (5) Heart failure: (6) Afib: Assessment and plan: - History of, currently tachycardic likely in the setting of sepsis - Was given 5 mg IV Lopressor in the emergency department - Will continue home metoprolol 25 mg twice daily as well as home Eliquis Mar 20: increasing metoprolol to 50 BID (7) Hemiplegia and hemiparesis following cerebral infarction affecting right dominant side: Assessment and plan: History of, along with-expressive aphasia, continue home statin (8) CAD (coronary artery disease): Status: Chronic Assessment and plan: - Continue home metoprolol, statin (9) Tachycardia with heart rate 100-120 beats per minute: Status: Acute Assessment and plan: Persistent HR around 120 CTA done, negative for PE Poor response to IV metoprolol pushes Increasing anxiety medication and PO metoprolol dose Echo not able to be done due to tachycardia Continue telemonitoring Mar 11: Overnight nearly without tachycardia, again above 120 during the day. Continue to monitor. Subjective Subjective Interval history since last seen: Ms. Escamilla is comfortable in bed. No overnight events, no new complaints. Exam Narrative Exam Narrative: General: This is a pleasant, obese woman in no distress HEENT: Normocephalic, atraumatic CV: tachycardic, regular rhythm Resp: Bibasilar rales, good movement of air without increased work of breathing on room air Abd: soft, NTND MSK: voluntary motion x4 Neuro: awake, alert, no focal deficits. Cognitive impairment. Objective Last Vital Signs Temp 36.3 C L 03/22/25 11:15 Pulse 121 H 03/22/25 11:15 Resp 16 03/22/25 11:15 BP 107/79 03/22/25 11:15 Pulse Ox 94 03/22/25 11:15 Time Spent with Patient Time Spent with Patient: 25-34 minutes Time was spent: preparing to see the patient(eg.review tests), obtaining and/or reviewing separately otained hiistory, ordering medications,tests, procedures, referring, communicating with other health acute care nurse practitioner, indepentently interpreting results, counseling the patient and care coordination
[2025-03-22] MEDS: Furosemide 40 MG TAB PO (14:09)
[2025-03-22 15:10] VITALS: BP 108/82; PULSE 117; RESP 20; TEMP 36.3; O2SAT 96
[2025-03-22 20:06] VITALS: BP 100/86; PULSE 119; RESP 16; TEMP 36.1
[2025-03-22] MEDS: Atorvastatin 40 MG TAB PO (20:12)
[2025-03-23 07:42] VITALS: BP 94/75; PULSE 97; RESP 18; TEMP 36.2; O2SAT 94
[2025-03-23 08:45] VITALS: BP 109/67; PULSE 115
[2025-03-23] MEDS: LORazepam 1 MG TAB PO ×3 (08:47→19:59)
[2025-03-23] MEDS: QUEtiapine 25 MG TAB PO ×2 (08:47→19:59)
[2025-03-23] MEDS: Omeprazole 20 MG CAPCR PO (08:47)
[2025-03-23] MEDS: Apixaban 5 MG TAB PO ×2 (08:47→20:00)
[2025-03-23] MEDS: Furosemide 40 MG TAB PO (08:47)
[2025-03-23] MEDS: Metoprolol 50 MG TAB PO ×2 (08:47→19:59)
[2025-03-23] MEDS: Gabapentin 300 MG CAP PO ×2 (08:47→19:59)
[2025-03-23] MEDS: Allopurinol 100 MG TAB PO (08:47)
[2025-03-23] MEDS: Oseltamivir 30 MG CAP PO ×2 (08:47→19:59)
[2025-03-23] MEDS: Normal Saline Flush 10 ML SYR IVP ×2 (08:48→20:01)
[2025-03-23] MEDS: Sertraline 25 MG TAB 125 MG PO (08:48)
[2025-03-23 11:18] VITALS: BP 104/77; PULSE 115; RESP 17; TEMP 36.4; O2SAT 96
[2025-03-23 15:08] VITALS: BP 109/82; PULSE 112; RESP 17; TEMP 36.2; O2SAT 93
--- NOTE | 2025-03-23 16:13 | CMPROGNOTE_ITS ---
Date of service: 03/23/25 Time of Service: 16:50 Care Management Progress Note Progress Note Text Progress Note Text: Renita was awake and sitting up in bed. Per report, she continues to experience tachycardia during the day, though not at night. Per provider, JULEE was provided a medical update. Discharge is anticipated within the next few days. CM sent Renita's recent progress note to [facility]. CM will continue to follow. Discharge Potential Discharge Needs: PCP F/U Appt Anticipated Barriers to Discharge: None Identified Patient/Family Education Needs: Review discharge instructions, discuss Ask Me Three Transportation: [facility] RCT Transportation: Wheel chair van Plan: Anticipate Renita will be discharged back to [facility] once medically ready. It will be recommended she follow up with her community providers and discharge plan of care. She will transport via [facility]. CM will follow. Social Determinants of Health Screening Will the Patient Participate in the Screening?: Unable to obtain
--- NOTE | 2025-03-23 16:14 | W.PM.PROGNOT ---
Date of Service Date of service: 03/23/25 Time of Service: 08:00 Assessment and Plan Assessment and plan (1) Tachycardia with heart rate 100-120 beats per minute: Status: Acute Assessment and plan: Persistent HR around 120 CTA done, negative for PE Poor response to IV metoprolol pushes Increasing anxiety medication and PO metoprolol dose Echo not able to be done due to tachycardia Continue telemonitoring Mar 11: Overnight nearly without tachycardia, again above 120 during the day. Continue to monitor. Mar 12: Again with normal heartrate overnight, still above 120 during the day. Mar 13: Rates in 110's during the day. Discussed with production reproduction manager at rehab facility; may be able to return if BP is stable with some HR elevations (2) Acute on chronic HFrEF (heart failure with reduced ejection fraction): Status: Acute Assessment and plan: - Chest x-ray noted cardiomegaly pulmonary vascular congestion - Patient also had elevated proBNP of 4587 - Status post 40 mg IV Lasix in the emergency department - Monitor I's and O's and give additional Lasix as needed - Echocardiogram ordered once available on 03/20/2025Mar 9: Repeat furosemide 40 IV. unclear if patient has previous HF diagnosis. Echo ordered for Mar 20Thursday. Mar 20: Holding diuresis today. Hopefully will be able to get echocardiogram with normalization of heart rate. Mar 11: Still elevated HR, echo delayed Nov 12: Echo showing EF 20-25% with severe defects. Restarted diuresis. Mar 13: Diuresis producing more urine, some improvement in edema (3) Influenza A virus present: Status: Acute Assessment and plan: Completing oseltamivir course. (4) Sepsis: Status: Resolved Assessment and plan: - Patient meets criteria for subsequent heart rate in the 130s, respiratory rate in the low 40s, temperature 102.4 °F with source of infection being pneumonia - No signs of endorgan damage therefore patient does not meet criteria for severe sepsis - Started on Levaquin, will continue - Follow-up blood culture results Mar 9: Sepsis resolved. Persistent tachycardia consistent with active influenza A; little response to beta ricardo or benzodiazepine. Discontinued antibiotics as bacterial superinfection unlikely with symptom onset on day of presentation Nov 8. Renal dosing for oseltamivir. Downgrading to medsurg. VTE ppx: apixaban. (5) Acute hypoxic respiratory failure: Status: Resolved Assessment and plan: -Likely secondary to combination of pneumonia and congestive heart failure. - Currently on BiPAP, wean supplemental oxygen for goal saturation greater than 92% Mar 9: resolved, on room air (6) Afib: Assessment and plan: - History of, currently tachycardic likely in the setting of sepsis - Was given 5 mg IV Lopressor in the emergency department - Will continue home metoprolol 25 mg twice daily as well as home Eliquis Mar 10: increasing metoprolol to 50 BID (7) Hemiplegia and hemiparesis following cerebral infarction affecting right dominant side: Assessment and plan: History of, along with-expressive aphasia, continue home statin (8) CAD (coronary artery disease): Status: Chronic Assessment and plan: - Continue home metoprolol, statin Subjective Subjective Interval history since last seen: Ms. Escamilla is comfortable in bed. No overnight events, no new complaints. Exam Narrative Exam Narrative: General: This is a pleasant, obese woman in no distress HEENT: Normocephalic, atraumatic CV: tachycardic, regular rhythm Resp: Bibasilar rales, good movement of air without increased work of breathing on room air Abd: soft, NTND MSK: voluntary motion x4 Neuro: awake, alert, no focal deficits. Cognitive impairment. Objective Last Vital Signs Temp 36.2 C L 03/23/25 15:08 Pulse 112 H 03/23/25 15:08 Resp 17 03/23/25 15:08 BP 109/82 03/23/25 15:08 Pulse Ox 93 03/23/25 15:08 Time Spent with Patient Time Spent with Patient: 25-34 minutes Time was spent: preparing to see the patient(eg.review tests), obtaining and/or reviewing separately otained hiistory, ordering medications,tests, procedures, referring, communicating with other health emergency care tech, indepentently interpreting results, counseling the patient and care coordination
[2025-03-23 19:55] VITALS: BP 105/77; PULSE 117; RESP 16; TEMP 36.5; O2SAT 94
[2025-03-23] MEDS: Atorvastatin 40 MG TAB PO (19:59)
[2025-03-24 07:47] VITALS: BP 98/67; PULSE 117; RESP 16; TEMP 36; O2SAT 98
[2025-03-24] MEDS: LORazepam 1 MG TAB PO ×2 (09:06→14:13)
[2025-03-24] MEDS: Apixaban 5 MG TAB PO (09:07)
[2025-03-24] MEDS: Metoprolol 50 MG TAB PO (09:07)
[2025-03-24] MEDS: Gabapentin 300 MG CAP PO (09:07)
[2025-03-24] MEDS: Omeprazole 20 MG CAPCR PO (09:07)
[2025-03-24] MEDS: Furosemide 40 MG TAB PO (09:07)
[2025-03-24] MEDS: Allopurinol 100 MG TAB PO (09:07)
[2025-03-24] MEDS: Sertraline 25 MG TAB 125 MG PO (09:07)
[2025-03-24] MEDS: QUEtiapine 25 MG TAB PO (09:07)
[2025-03-24] MEDS: Normal Saline Flush 10 ML SYR IVP (09:08)
--- NOTE | 2025-03-24 12:31 | PDOC.CMPRO ---
Date of service: 03/24/25 Time of Service: 12:31 Care Management Progress Note Discharge Potential Discharge Needs: PCP F/U Appt Anticipated Barriers to Discharge: None Identified Patient/Family Education Needs: Review discharge instructions, discuss Ask Me Three Social Determinants of Health Screening Will the Patient Participate in the Screening?: Unable to obtain
[2025-03-24 12:51] VITALS: BP 102/62; PULSE 68; RESP 16; TEMP 36.2; O2SAT 96
--- NOTE | 2025-03-24 14:09 | W.PM.DS.N ---
Date of service: 03/24/25 Time of Service: 08:00 DS: Diagnosis Discharge Diagnosis (1) Tachycardia with heart rate 100-120 beats per minute: Status: Acute Asessment and Plan: HR 110's possibly new baseline Anxiety of being away from her home is a component Influenza is a component Recommend regular vitals checks For her new heart failure diagnosis, she should see a manager pathology and cover tachycardia as well (2) Acute on chronic HFrEF (heart failure with reduced ejection fraction): Status: Acute Asessment and Plan: Possibly new diagnosis with EF 20-25% Started on furosemide 40 PO daily Metoprolol increased to 50 mg PO BID Recommend cardiology consultation when able (3) Influenza A virus present: Status: Resolved Asessment and Plan: Asymptomatic at discharge Oseltamivir course completed (4) Sepsis: Status: Resolved (5) Acute hypoxic respiratory failure: Status: Resolved (6) Afib: Asessment and Plan: Continue apixaban and beta ricardo (7) Hemiplegia and hemiparesis following cerebral infarction affecting right dominant side: (8) CAD (coronary artery disease): Status: Chronic Discharge Plan Disposition Patient Disposition: Intermediate Facility(SNF) Condition: Fair Discharge Details Reason For Visit: Sepsis, PNA, Acute Hypoxic Respiratory Failure Admit Date/Time: 03/18/25 19:32 Admit Provider: Henry Looney Attending Provider: Henry Looney Primary Care Provider: Neftaly Loredo Hospital Course Hospital Course: Renita Escamilla is a 59 year old woman presenting March 18 with fever, cough and shortness of breath. She was found to be septic and tested positive for influenza A. She was treated with oseltamivir. Her flu-like symptoms improved within 48 hours. She had persistent tachycardia which prevented echocardiogram until March 21. Echocardiogram showed severe heart failure with reduced ejection fraction of 20-25%. This may be a new diagnosis. She has longstanding atrial fibrillation which is also still seen on cardiac monitoring. Over the course of her week in the hospital, her heart rate has persisted in the 110's. Her medications have been adjusted to include furosemide and a higher dose of metoprolol. Her blood pressure has been well-controlled with district branch manager low of 90's / 50's that are not seen the rest of the day or night. Her medical condition has been discussed with her facility and she can be safely discharged today. Home Meds and New Rx's Prescriptions: New furosemide 40 mg Tablet 40 mg PO DAILY Qty: 30 0RF metoprolol tartrate 50 mg Tablet 50 mg PO BID Qty: 60 0RF Continued atorvastatin 80 mg tablet 40 mg PO QHS gabapentin 300 mg capsule 300 mg PO BID magnesium oxide 400 mg magnesium capsule 400 mg PO BID sertraline 25 mg tablet 125 mg PO DAILY nitroglycerin [Nitrostat] 0.4 mg tablet, sublingual 0.4 mg sublingual Q5M PRN Rx Instructions: do not exceed 3 doses per episode quetiapine [Seroquel] 25 mg tablet 25 mg PO BID omeprazole 20 mg capsule,delayed release(DR/EC) 20 mg PO DAILY bisacodyl [Dulcolax (bisacodyl)] 10 mg suppository 10 mg ME ONCE PRN Rx Instructions: after MOM is administered Fleet Enema 19-7 gram/118 mL enema 118 ml ME ONCE PRN Rx Instructions: After MOM and suppository have been administered without results. magnesium hydroxide [Dulcolax (magnesium hydroxide)] 400 mg/5 mL suspension 30 ml PO DAILY PRN sennosides-docusate sodium 8.6-50 mg tablet 1 tab-cap PO DAILY acetaminophen 650 mg suppository 650 mg ME Q4H PRN lorazepam 1 mg tablet 1 mg PO TID cetirizine [All Day Allergy (cetirizine)] 10 mg tablet 10 mg PO DAILY PRN allopurinol 100 mg Tablet 100 mg PO DAILY Eliquis 5 mg tablet 5 mg PO BID Qty: 60 0RF Discontinued metoprolol tartrate 25 mg tablet 25 mg PO BID Discharge Instructions Instructions: Heart failure with reduced ejection fraction Activity:: Activity as Tolerated Equipment/Supplies:: No Equipment Needed Diet:: As Tolerated DS: Summary Time Spent with Patient providing and/or coordinating discharge services: Greater than 30 minutes Status at Discharge Functional status at discharge: uses cane/walker Overall status at discharge: patient is progressing back to baseline Mental Status: mental status grossly normal Speech and Movement: speech and movement normal Mood: congruent mood Affect: normal affect Exam Narrative Exam Narrative: General: This is a pleasant, obese woman in no distress HEENT: Normocephalic, atraumatic CV: tachycardic, regular rhythm Resp: Bibasilar rales, good movement of air without increased work of breathing on room air Abd: soft, NTND MSK: voluntary motion x4 Neuro: awake, alert, no focal deficits. Cognitive impairment. Psych Mental Status: mental status grossly normal Speech and Movement: speech and movement normal Mood: congruent mood Affect: normal affect DS: Data Vitals/I&O Vitals and I&O: Vital Signs Temperature 36.2 C L 03/24/25 12:51 Temperature Source Temporal Artery Scan 03/24/25 12:51 Pulse 68 03/24/25 12:51 Pulse 107 H 03/21/25 16:00 Respiratory Rate 16 03/24/25 12:51 Blood Pressure 102/62 03/24/25 12:51 Blood Pressure Mean 75 03/24/25 12:51 Blood Pressure Position Supine 03/18/25 21:00 Pulse Oximetry 96 03/24/25 12:51 Oxygen Delivery Method Room Air 03/24/25 12:51 Oxygen Flow Rate 0 03/24/25 12:51 Fraction of Inspired Oxygen (FIO2) 30 03/20/25 09:05 Pain Level 0 03/23/25 08:47 Comment pt asleep 03/24/25 03:39 Intake & Output 03/23/25 03/24/25 03/24/25 23:59 11:59 23:59 Intake Total 480 / 840 240 / 480 240 / 480 Balance 480 / 840 240 / 480 240 / 480 Intake: Oral 480 / 840 240 / 480 240 / 480 Other: Urine Color Yellow Yellow Yellow Urine Appearance Clear Clear Clear Urine Odor Normal Normal Comment Pt was incontinent in brief w/ small amount. Stool Size Small Stool Characteristics Soft Formed Data Completed and Pending Pending Labs at Discharge: 03/18/25 03/18/25 03/18/25 17:28 17:42 18:35 WBC 6.42 RBC 3.90 L Hgb 11.0 L Hct 34.8 L MCV 89 MCH 28.2 MCHC 31.6 L RDW 14.9 H Plt Count 175 MPV 11.1 H Immature Gran % 0.3 Neutrophils % 74.7 Lymphocytes % 15.1 Monocytes % 9.0 Eosinophils % 0.6 Basophils % 0.3 Nucleated RBC % 0.0 Absolute Neutrophils 4.79 Absolute Lymphocytes 0.97 L Absolute Monocytes 0.58 Absolute Eosinophils 0.04 Absolute Basophils 0.02 PT 12.7 H INR 1.3 H APTT 34.5 H VBG pH 7.43 H VBG pCO2 33 L VBG pO2 58 VBG HCO3 22 L VBG Total CO2 20 L VBG O2 Saturation 93 VBG Base Excess -2 VBG Lactate 1.4 Sodium 136 Potassium 4.2 Chloride 104 Carbon Dioxide 22.7 Anion Gap 9.3 BUN 18 Creatinine 1.1 H Est GFR (CKD-EPI 2020) 57.17 Glucose 121 H Calcium 7.8 L Magnesium 1.6 L Total Bilirubin 0.5 AST 36 ALT 36 Alkaline Phosphatase 80 Troponin I 7 10 NT-Pro-B Natriuret Pep 4587 H Total Protein 7.2 Albumin 3.2 L Procalcitonin 0.29 COVID-19 Source SARS-CoV-2 (PCR) Influ A Subtyping (PCR) Influenza Type A (PCR) Influenza Type B (PCR) RSV (PCR) MRSA (TEM-PCR) 03/18/25 03/18/25 03/18/25 20:00 20:28 21:12 WBC RBC Hgb Hct MCV MCH MCHC RDW Plt Count MPV Immature Gran % Neutrophils % Lymphocytes % Monocytes % Eosinophils % Basophils % Nucleated RBC % Absolute Neutrophils Absolute Lymphocytes Absolute Monocytes Absolute Eosinophils Absolute Basophils PT INR APTT VBG pH VBG pCO2 VBG pO2 VBG HCO3 VBG Total CO2 VBG O2 Saturation VBG Base Excess VBG Lactate Sodium Potassium Chloride Carbon Dioxide Anion Gap BUN Creatinine Est GFR (CKD-EPI 2020) Glucose Calcium Magnesium Total Bilirubin AST ALT Alkaline Phosphatase Troponin I Cancelled NT-Pro-B Natriuret Pep Total Protein Albumin Procalcitonin COVID-19 Source Nasopharynx SARS-CoV-2 (PCR) Negative Influ A Subtyping (PCR) Pending Influenza Type A (PCR) Positive A Influenza Type B (PCR) Negative RSV (PCR) Negative MRSA (TEM-PCR) Negative 03/19/25 03/20/25 05:15 07:49 WBC 4.78 8.73 RBC 3.78 L 4.41 Hgb 11.5 12.6 Hct 33.8 L 38.5 MCV 89 87 MCH 30.4 28.6 MCHC 34.0 D 32.7 RDW 14.6 15.1 H Plt Count 178 208 MPV 11.5 H 11.2 H Immature Gran % 0.2 Neutrophils % 72.1 Lymphocytes % 18.8 Monocytes % 8.7 Eosinophils % 0.1 Basophils % 0.1 Nucleated RBC % 0.0 Absolute Neutrophils 6.29 Absolute Lymphocytes 1.64 Absolute Monocytes 0.76 Absolute Eosinophils 0.01 Absolute Basophils 0.01 PT INR APTT VBG pH VBG pCO2 VBG pO2 VBG HCO3 VBG Total CO2 VBG O2 Saturation VBG Base Excess VBG Lactate Sodium 138 141 Potassium 3.9 3.9 Chloride 104 103 Carbon Dioxide 23.6 26.8 Anion Gap 10.4 11.2 H BUN 22 H 37 H Creatinine 1.3 H 1.4 H Est GFR (CKD-EPI 2020) 46.78 42.80 Glucose 182 H 103 Calcium 9.1 9.3 Magnesium 2.0 Total Bilirubin 0.6 AST 44 H ALT 46 Alkaline Phosphatase 77 Troponin I NT-Pro-B Natriuret Pep Total Protein 8.2 Albumin 3.5 Procalcitonin COVID-19 Source SARS-CoV-2 (PCR) Influ A Subtyping (PCR) Influenza Type A (PCR) Influenza Type B (PCR) RSV (PCR) MRSA (TEM-PCR) PFSH All Active Problems (Updated 03/24/25 @ 14:11 by James Lino MD) Acute on chronic HFrEF (heart failure with reduced ejection fraction) (Acute) Tachycardia with heart rate 100-120 beats per minute (Acute) CAD (coronary artery disease) (Chronic) Depression (Chronic) Osteoarthritis of right shoulder (Acute) Bursitis of right shoulder (Acute) Adhesive capsulitis of right shoulder (Acute) Migraine headache with aura (Acute) Chronic headache (Acute) Spell of altered cognition (Acute) AMS (altered mental status) (Acute) Medical History (Updated 03/24/25 @ 14:11 by James Lino MD) Heart failure Sudden cardiac arrest Afib Atherosclerotic heart disease of [place] coronary artery without angina pectoris Other symptoms and signs involving cognitive functions and awareness Abnormality of gait and mobility Lack of coordination Receptive expressive language disorder Nontraumatic intracerebral hemorrhage Major depressive disorder Right shoulder pain Osteoarthritis Restlessness and agitation Anxiety Idiopathic gout Muscle weakness COVID-19 Dysphagia Seizures Hemiplegia and hemiparesis following cerebral infarction affecting right dominant side Gout Migraine headache without aura Paroxysmal A-fib Pulmonary HTN CVA (cerebral vascular accident) 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/05/20, aphasia, dysphasia, Respiratory arrest before cardiac arrest Surgical History S/P cholecystectomy Social History Smoking/Tobacco Use Status: Never Smoking risk assessment performed?: Yes Alcohol Intake: never Substance use type: does not use Housing: long-term Current gender identity: female Do you feel safe at home: Yes Time Spent with Patient Time Spent with Patient: <45 minutes Time was spent: preparing to see the patient(eg.review tests), obtaining and/or reviewing separately otained hiistory, ordering medications,tests, procedures, referring, communicating with other health mall plant caretaker, indepentently interpreting results, counseling the patient and care coordination
--- NOTE | 2025-03-24 14:31 | CMDISCH_ITS ---
Date of service: 03/24/25 Time of Service: 14:31 LACE Index Scoring Tool Questions: Length of Stay (in days): 4 - 6 Was the patient admitted via the E.D.?: Yes Comorbidities: Congestive Heart Failure E.D. Visits: 0 Answers: Total Score: 9 Risk of Readmission: Low Risk Care Management Discharge Plan Reason for Hospitalization: Sepsis, Influenza Discharge Plan: Renita returned to [facility] today. The hospitalist discussed the transfer back to the facility with the DON, who agreed to accept her for today. CM coordinated EMS transport via [facility], and communicated this with admissions at the facility. She will follow up with her PCP/facility provider and her discharge plan of care. She is happy to be going home. Patient/Family Education Needs: Review discharge instructions and limitations, discussion of self care needs including ask me three. Services Needed at Discharge: Residential Facility (SNF- return to [facility]) and Transportation ([facility], EMS)
--- NOTE | 2025-03-24 14:37 | NUR.NOTE ---
Nursing Note[facility] Report given to Shakira
== END 2025-03-24 14:52 | disposition skilled nursing facility (03) | DRG 871 ==
LOC: ER 20:50 → ICU 20:51 → MS 03-21 18:15
PROVIDERS: Admitting Provider Family Medicine; Emergency Provider Emergency Medicine; PCP Family Medicine; Responsible Provider Family Medicine; Visit Provider Family Medicine
DX: A41.89 Other specified sepsis (principal); I50.23 Acute on chronic systolic (congestive) heart failure; J96.01 Acute respiratory failure with hypoxia; J10.00 Influenza due to other identified influenza virus with unspecified type of pneumonia; I69.351 Hemiplegia and hemiparesis following cerebral infarction affecting right dominant side; I25.10 Atherosclerotic heart disease of native coronary artery without angina pectoris; R00.0 Tachycardia, unspecified; J10.1 Influenza due to other identified influenza virus with other respiratory manifestations; G43.109 Migraine with aura, not intractable, without status migrainosus; Z86.74 Personal history of sudden cardiac arrest; I48.0 Paroxysmal atrial fibrillation; I27.20 Pulmonary hypertension, unspecified; R13.10 Dysphagia, unspecified; M10.00 Idiopathic gout, unspecified site; F32.9 Major depressive disorder, single episode, unspecified; F41.9 Anxiety disorder, unspecified; I69.320 Aphasia following cerebral infarction
CPT/HCPCS: 00123; 36415; 51702; 71250; 71275; 80048; 80053; 82805; 84145; 85027; 87040; 87637; 87641; 93005; 94640; 96361; 96365; 96366; 96375; 99285; 71045; 83605; 83735; 83880; 84484; 85025; 85610; 85730; 93010; 93306; 94660; 94760; 99223; 99232; 99233; 99239; J1938; J1956; J3475; J3490; J7620